=== PATIENT | female | born 1950 | race Caucasian/White ===

== ENCOUNTER 2018-02-22 21:17 | Emergency (ER) | payer MEDICARE, OTHER ==
[2018-02-22] MEDS ORDERED: Alum Hydrox/Mag Hydrox/Simeth 15 ML, Lidocaine 2% 15 ML PO ONE ×2 (22:00)
--- NOTE | 2018-02-22 22:03 | EDM.PDOC ---
ED HPI GENERAL MEDICAL PROBLEM - General Chief Complaint: General Stated Complaint: ABD PAIN Time Seen by Provider: 02/22/18 21:45 Source of Information: Reports: Patient History Limitations: Reports: No Limitations - History of Present Illness INITIAL COMMENTS - FREE TEXT/NARRATIVE: 68-year-old female has developed abdominal pain for the past 2 days. It's mostly epigastric, some radiation of pain into her back and shoulders bilaterally. Denies nausea or vomiting, but it's always worse after she tries to eat something. She was in with similar symptoms a year ago and was told she was "constipated". Denies diarrhea. No shortness of breath or chest pain. She has not tried any antacids or any other remedy. Onset: Gradual (Over the past 2 days) Location: Reports: Abdomen Severity: Moderate Associated Symptoms: Reports: Other (Decreased appetite). Denies: Cough, Fever/ Chills, Nausea/Vomiting, Shortness of Breath, Weakness Epigastric Pain Score (Numeric/FACES): 10 Bilateral Shoulder Pain Score (Numeric/FACES): 10 - Related Data Allergies Allergy/AdvReac Type Severity Reaction Status Date / Time codeine AdvReac Hallucinati Verified 12/04/16 16:17 ons Home Meds: Home Meds ALPRAZolam [Alprazolam] 0.5 mg PO BID 11/24/15 [History] Citalopram Hydrobromide [Celexa] 40 mg PO BEDTIME 11/24/15 [History] Diltiazem HCl [Cartia Xt] 240 mg PO DAILY 11/24/15 [History] Furosemide 40 mg PO ASDIRECTED 11/24/15 [History] Metolazone [Zaroxolyn] 5 mg PO ASDIRECTED 11/24/15 [History] Potassium Chloride [Klor-Con M20] 20 meq PO BID 11/24/15 [History] Pravastatin [Pravachol] 20 mg PO DAILY 11/24/15 [History] Warfarin Sodium 5 mg PO ASDIRECTED 11/24/15 [History] Polyethylene Glycol 3350 [MiraLAX] 17 gm PO DAILY #1 cont 03/25/16 [Rx] Fish Oil/[place]-3 Fatty Acids [Fish Oil 1,000 MG] 1 cap PO BID 10/17/16 [History] Doxycycline Monohydrate 100 mg PO BID 12/03/16 [History] Ondansetron [Zofran ODT] 4 mg PO Q6H PRN #5 tab.dis 12/03/16 [Rx] Past Medical History HEENT History: Reports: Impaired Vision Cardiovascular History: Reports: Afib, High Cholesterol Respiratory History: Reports: Asthma, Sleep Apnea 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: Musculoskeletal History: Reports: Fracture Neurological History: Reports: Migraines Psychiatric History: Reports: Anxiety, Depression Endocrine/Metabolic History: Reports: Obesity/BMI 30+ - Infectious Disease History Infectious Disease History: Reports: Chicken Pox, Measles, Mumps - Past Surgical History Musculoskeletal Surgical History: Reports: Knee Replacement, Shoulder Surgery, Other (See Below) Social & Family History - Family History Family Medical History: Unobtainable Cardiac: Reports: Heart Failure Respiratory: Reports: Asthma Endocrine/Metabolic: Reports: Diabetes, type II - Tobacco Use Smoking Status *Q: Never Smoker Second Hand Smoke Exposure: No - Caffeine Use Caffeine Use: Reports: Coffee - Recreational Drug Use Recreational Drug Use: No - Living Situation & Occupation Living situation: Reports: Single, with Family ED ROS GENERAL - Review of Systems Review Of Systems: See Below Constitutional: Denies: Fever, Chills HEENT: Reports: No Symptoms Respiratory: Denies: Shortness of Breath, Pleuritic Chest Pain Cardiovascular: Denies: Chest Pain GI/Abdominal: Reports: Abdominal Pain. Denies: Diarrhea, Nausea, Vomiting : Reports: No Symptoms Skin: Reports: No Symptoms Neurological: Reports: No Symptoms Psychiatric: Reports: No Symptoms ED EXAM, GENERAL - Physical Exam Exam: See Below (Appears uncomfortable but not distressed) Exam Limited By: No Limitations General Appearance: Alert, No Apparent Distress Eye Exam: Bilateral Eye: EOMI (No jaundice) Head: Atraumatic Respiratory/Chest: No Respiratory Distress, Lungs Clear Cardiovascular: Regular Rate, Rhythm GI/Abdominal: Soft, Tender (Very tender to palpation in the epigastric area, also pain in the right upper quadrant but no guarding) Neurological: Alert, Oriented Psychiatric: Normal Affect, Normal Mood Skin Exam: Warm, Dry Course - Vital Signs Last Recorded V/S: Last Vital Signs Temp 96.8 F 02/22/18 21:31 Pulse 108 H 02/23/18 00:17 Resp 20 02/23/18 00:17 BP 95/27 L 02/23/18 00:17 Pulse Ox 94 L 02/23/18 00:17 - Orders/Labs/Meds Orders: Active Orders 24 hr Category Date Time Status Abdomen Pelvis w Cont [CT] Stat Exams 02/22/18 22:57 Taken Labs: Laboratory Tests 02/22/18 02/22/18 Range/Units 22:00 22:00 WBC 8.9 (4.5-11.0) K/uL RBC 4.50 (3.30-5.50) M/uL Hgb 13.6 (12.0-15.0) g/dL Hct 40.0 (36.0-48.0) % MCV 89 (80-98) fL MCH 30 (27-31) pg MCHC 34 (32-36) % Plt Count 228 (150-400) K/uL Neut % (Auto) 75 H (36-66) % Lymph % (Auto) 15 L (24-44) % [place] % (Auto) 9 H (2-6) % Eos % (Auto) 1 L (2-4) % Baso % (Auto) 0 (0-1) % Sodium 134 L (140-148) mmol/L Potassium 2.8 L* (3.6-5.2) mmol/L Chloride 94 L (100-108) mmol/L Carbon Dioxide 35 H (21-32) mmol/L Anion Gap 7.8 (5.0-14.0) mmol/L BUN 10 (7-18) mg/dL Creatinine 0.9 (0.6-1.0) mg/dL Est Cr Clr Drug Dosing 54.45 mL/min Estimated GFR (MDRD) > 60 (>60) Glucose 106 (74-106) mg/dL Calcium 8.9 (8.5-10.1) mg/dL Total Bilirubin 0.6 (0.2-1.0) mg/dL AST 21 (15-37) U/L ALT 15 (12-78) U/L Alkaline Phosphatase 68 (46-116) U/L Total Protein 7.1 (6.4-8.2) g/dL Albumin 3.2 L (3.4-5.0) g/dL Globulin 3.9 H (2.3-3.5) g/dL Albumin/Globulin Ratio 0.8 L (1.2-2.2) Amylase 39 (25-115) U/L Lipase 273 (73-393) U/L Meds: Medications Discontinued Medications Generic Name Dose Route Start Last Admin Trade Name Evelyn PRN Reason Stop Dose Admin Al Hydroxide/Mg Hydroxide 15 0 ml 02/22/18 22:00 02/22/18 22:05 ml/ Lidocaine HCl 15 ml PO 02/22/18 22:01 30 ml ONETIME ONE Administration Fentanyl 25 mcg 02/23/18 00:04 02/23/18 00:16 Sublimaze IVPUSH 02/23/18 00:05 25 mcg ONETIME ONE Administration Sodium Chloride 85 mls @ 3.5 mls/sec 02/22/18 23:08 02/22/18 23:25 Normal Saline IV 02/22/18 23:09 3.5 mls/sec ONETIME ONE Administration Lactated Ringer's 1,000 mls @ 500 mls/hr 02/23/18 00:45 Ringers, Lactated IV ASDIRECTED BEBE Iopamidol 150 ml 02/22/18 23:15 02/22/18 23:24 Isovue-300 (61%) IV 150 ml . DIRECTED BEBE Administration Sodium Chloride 10 ml 02/22/18 23:08 02/22/18 23:24 Saline Flush FLUSH 02/22/18 23:09 10 ml ONETIME ONE Administration - Re-Assessments/Exams Free Text/Narrative Re-Assessment/Exam: 02/23/18 00:06 GI cocktail was given with no relief. CBC, CMP, amylase and lipase were obtained and an IV started. Potassium is only 2.8, but white count was normal and all liver enzymes are normal as well. Amylase and lipase were normal. Patient's pain was very persistent however so an IV enhanced contrast of the abdomen was obtained. She was given 25 g of fentanyl IV for pain. 02/23/18 00:39 CT showed findings of pancreatitis. Patient was started on 500 mL an hour of lactated Ringer's, and arrangements were made for the patient to be transferred to [place] for admission since we had no beds available. Departure - Departure Time of Disposition: 01:18 Disposition: DC/Tfer to Other Condition: Fair Clinical Impression: Hypokalemia Pancreatitis Qualifiers: Chronicity: acute Pancreatitis type: unspecified pancreatitis type Acute pancreatitis complication: unspecified Qualified Code(s): K85.90 - Acute pancreatitis without necrosis or infection, unspecified Abdominal pain Qualifiers: Abdominal location: upper abdomen, unspecified Qualified Code(s): R10.10 - Upper abdominal pain, unspecified - Discharge Information Referrals: Gary Phipps MD [Primary Care Provider] - Forms: ED Department Discharge Care Plan Goals: 68-year-old female who be transferred to [place] by EMS for inpatient admission to treat and evaluate acute pancreatitis. - My Orders Last 24 Hours: My Active Orders 02/22/18 22:57 Abdomen Pelvis w Cont [CT] Stat - Assessment/Plan Last 24 Hours: My Active Orders 02/22/18 22:57 Abdomen Pelvis w Cont [CT] Stat
[2018-02-22] MEDS ORDERED: Sodium Chloride 0.9% 10 ML Syringe FLUSH ONE (23:08)
[2018-02-22] MEDS ORDERED: Iopamidol 612 MG/ML 150 ML Bottle IV SCH (23:15)
[2018-02-23] MEDS ORDERED: fentaNYL 100 MCG/2 ML SDV IVPUSH ONE (00:04)
[2018-02-23 00:18] VITALS: BP 95/27
[2018-02-23] MEDS ORDERED: Lactated Ringers 1,000 ML IV SCH (00:45)
== END 2018-02-23 01:18 | disposition other institution (70) ==
LOC: JP.ED 21:17
DX: K85.90 Acute pancreatitis without necrosis or infection, unspecified (principal); E87.6 Hypokalemia; E78.00 Pure hypercholesterolemia, unspecified; Z88.5 Allergy status to narcotic agent; Z79.899 Other long term (current) drug therapy
CPT/HCPCS: 36415; 74177; 80053; 82150; 83690; 85025; 96374; 99285; A9270; J3010; J7030; J7050

== ENCOUNTER 2018-02-27 17:24 | Emergency (ER) | payer MEDICARE, OTHER ==
[2018-02-27] MEDS ORDERED: diphenhydrAMINE 25 MG Cap PO ONE (18:28)
--- NOTE | 2018-02-27 18:38 | EDM.PDOC ---
ED HPI GENERAL MEDICAL PROBLEM - General Chief Complaint: Allergic Reaction Stated Complaint: ALLERGIC REACTION Time Seen by Provider: 02/27/18 18:07 Source of Information: Reports: Patient, RN Notes Reviewed History Limitations: Reports: No Limitations - History of Present Illness INITIAL COMMENTS - FREE TEXT/NARRATIVE: 68-year-old female presents emergency department day complaint of allergic reaction, she recently had pancreatitis was hospitalized in [facility]. I was started on antibiotic of Levaquin, she states she had these symptoms while in the hospital was just discharged 2 days prior and is expected to continue the antibiotic for 2 more days. Her symptoms consist of a dry mouth with a scratchy throat, upset stomach, feels confused or like she is in fog, no throat swelling or difficulty breathing no rash also has had problems with her anticoagulation therapy for atrial fibrillation while in the hospital her INR was 10 checked today in the clinic INR is still at 6 reports no bleeding at this time, - Related Data Allergies Allergy/AdvReac Type Severity Reaction Status Date / Time codeine AdvReac Hallucinati Verified 12/04/16 16:17 ons Home Meds: Home Meds ALPRAZolam [Alprazolam] 0.5 mg PO BID 11/24/15 [History] Citalopram Hydrobromide [Celexa] 40 mg PO BEDTIME 11/24/15 [History] Diltiazem HCl [Cartia Xt] 120 mg PO DAILY 11/24/15 [History] Potassium Chloride [Klor-Con M20] 20 meq PO BID 11/24/15 [History] Pravastatin [Pravachol] 20 mg PO DAILY 11/24/15 [History] Warfarin Sodium 5 mg PO ASDIRECTED 11/24/15 [History] Polyethylene Glycol 3350 [MiraLAX] 17 gm PO DAILY #1 cont 03/25/16 [Rx] Fish Oil/[place]-3 Fatty Acids [Fish Oil 1,000 MG] 1 cap PO BID 10/17/16 [History] Ondansetron [Zofran ODT] 4 mg PO Q6H PRN #5 tab.dis 12/03/16 [Rx] Levofloxacin 250 mg PO DAILY 02/27/18 [History] Past Medical History HEENT History: Reports: Impaired Vision Cardiovascular History: Reports: Afib, High Cholesterol Respiratory History: Reports: Asthma, Sleep Apnea Gastrointestinal History: Reports: Pancreatitis 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: Musculoskeletal History: Reports: Fracture Neurological History: Reports: Migraines Psychiatric History: Reports: Anxiety, Depression Endocrine/Metabolic History: Reports: Obesity/BMI 30+ - Infectious Disease History Infectious Disease History: Reports: Chicken Pox, Measles, Mumps - Past Surgical History Musculoskeletal Surgical History: Reports: Knee Replacement, Shoulder Surgery, Other (See Below) Social & Family History - Family History Family Medical History: Unobtainable Cardiac: Reports: Heart Failure Respiratory: Reports: Asthma Endocrine/Metabolic: Reports: Diabetes, type II - Tobacco Use Smoking Status *Q: Never Smoker Second Hand Smoke Exposure: No - Caffeine Use Caffeine Use: Reports: None - Recreational Drug Use Recreational Drug Use: No - Living Situation & Occupation Living situation: Reports: Single, with Family ED ROS ALLERGIC REACTION - Review of Systems Review Of Systems: See Below Constitutional: Reports: No Symptoms HEENT: Reports: Other (Dry throat) Respiratory: Reports: No Symptoms Cardiovascular: Reports: No Symptoms GI/Abdominal: Reports: Other Neurological: Reports: Other (Feels like she is in a fog) ED EXAM GENERAL NO PERIP PULSE - Physical Exam Exam: See Below Text/Narrative:: General: Female, not in any distress, alert and oriented x3 HEENT: head is atraumatic normocephalic, eyes pupils equal round reactive to light, sclera clear no conjunctivitis appreciated. Ears tympanic membranes clear and amador landmarks and light reflex are present bilaterally canals are clear. Nose no septal deviation, nares are clear, no blood present. Mouth mucosa is moist and pink no erythema or exudate noted in soft palate, tongue is midline uvula is midline, dentition is intact. Neck: Supple no thyromegaly no tracheal deviation. Nodes: Cervical nodes subclavicular nodes nontender no palpable lymphadenopathy noted. Lungs: clear to auscultation bilaterally with symmetrical respirations, no adventitious noise appreciated. CV: Irregularly irregular rate and rhythm S1 and S2 appreciated no murmurs rubs or gallops noted. Abdomen: Soft, nontender, no palpable masses or organomegaly appreciated, no distention no guarding bowel sounds are present, . Neuro: Cranial nerves II through XII grossly intact Skin: Warm and dry, intact Extremities: +1 pitting edema appreciated bilaterally Course - Vital Signs Last Recorded V/S: Last Vital Signs Temp 97.4 F 02/27/18 19:15 Pulse 58 L 05/01/18 19:15 Resp 14 02/27/18 19:15 BP 144/92 H 02/27/18 19:15 Pulse Ox 95 02/27/18 19:15 - Orders/Labs/Meds Meds: Medications Discontinued Medications Generic Name Dose Route Start Last Admin Trade Name Evelyn PRN Reason Stop Dose Admin Diphenhydramine HCl 25 mg 02/27/18 18:28 02/27/18 18:36 Benadryl PO 02/27/18 18:29 25 mg ONETIME ONE Administration Departure - Departure Time of Disposition: :18 Disposition: Home, Self-Care 01 Condition: Good Clinical Impression: Drug reaction Qualifiers: Encounter type: initial encounter Qualified Code(s): T88.7XXA - Unspecified adverse effect of drug or medicament, initial encounter - Discharge Information Referrals: Gary Phipps MD [Primary Care Provider] - Forms: ED Department Discharge Additional Instructions: Please keep your follow-up appointment with your primary care physician tomorrow , use Benadryl 25 mg every 6-8 hours as needed for symptomatic relief - Assessment/Plan Plan: Assessment Acuity = acute Site and laterality = possible drug reaction Etiology = question levofloxacin Manifestations = none Location of injury = Home Lab values = none Plan She had good improvement with 25 mg Benadryl provided, last her to stop her Levaquin, she will follow-up with her primary care provider tomorrow This note was dictated using Marco Vasco voice recognition software please call with any questions on syntax or [email or web address].
[2018-02-27 19:16] VITALS: BP 144/92
== END 2018-02-27 19:27 | disposition home or self-care (01) ==
LOC: JP.ED 17:24
DX: R68.2 Dry mouth, unspecified (principal); T50.905A Adverse effect of unspecified drugs, medicaments and biological substances, initial encounter; I48.91 Unspecified atrial fibrillation; Z79.01 Long term (current) use of anticoagulants; E78.00 Pure hypercholesterolemia, unspecified; Z79.899 Other long term (current) drug therapy
CPT/HCPCS: 99283; A9270

== ENCOUNTER 2019-01-15 10:42 | Inpatient (IN) | payer MEDICARE, OTHER ==
--- NOTE | 2019-01-15 10:53 | EDM.PDOC ---
ED HPI GENERAL MEDICAL PROBLEM - General Chief Complaint: Lower Extremity Injury/Pain Stated Complaint: MEDICAL [facility]IA [facility] Time Seen by Provider: 01/15/19 10:45 Source of Information: Reports: Patient, EMS History Limitations: Reports: No Limitations - History of Present Illness INITIAL COMMENTS - FREE TEXT/NARRATIVE: 69-year-old female slipped on the ice injuring her right ankle. No other injury. She was unable to get up and bear weight and has significant ankle pain so EMS was called. She received IV fentanyl in route and has an obvious deformity of the right ankle. She can move her toes and feel her toes. Onset: Sudden Duration: Hour(s): (Within the last hour) Location: Reports: Lower Extremity, Right Associated Symptoms: Reports: No Other Symptoms Right Ankle Pain Score (Numeric/FACES): 7 - Related Data Allergies Allergy/AdvReac Type Severity Reaction Status Date / Time codeine AdvReac Hallucinati Verified 12/04/16 16:17 ons Home Meds: Home Meds ALPRAZolam [Alprazolam] 0.5 mg PO BID 11/24/15 [History] Citalopram Hydrobromide [Celexa] 40 mg PO BEDTIME 11/24/15 [History] Diltiazem HCl [Cartia Xt] 240 mg PO DAILY 11/24/15 [History] Potassium Chloride [Klor-Con M20] 20 meq PO BID 11/24/15 [History] Pravastatin [Pravachol] 20 mg PO DAILY 11/24/15 [History] Warfarin Sodium 5 mg PO ASDIRECTED 11/24/15 [History] Polyethylene Glycol 3350 [MiraLAX] 17 gm PO DAILY #1 cont 03/25/16 [Rx] Fish Oil/[place]-3 Fatty Acids [Fish Oil 1,000 MG] 1 cap PO BID 10/17/16 [History] Ondansetron [Zofran ODT] 4 mg PO Q6H PRN #5 tab.dis 12/03/16 [Rx] Albuterol Sulfate [Proair Hfa] 2 puff INH Q6H PRN 01/15/19 [History] Cholecalciferol (Vitamin D3) [Vitamin D3] 1,000 unit PO DAILY 01/15/19 [History] Melatonin 10 mg PO BEDTIME 01/15/19 [History] Torsemide 20 mg PO ASDIRECTED 01/15/19 [History] Past Medical History HEENT History: Reports: Impaired Vision Cardiovascular History: Reports: Afib, High Cholesterol Respiratory History: Reports: Asthma, Sleep Apnea Gastrointestinal History: Reports: Pancreatitis 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: Musculoskeletal History: Reports: Fracture Neurological History: Reports: Migraines Psychiatric History: Reports: Anxiety, Depression Endocrine/Metabolic History: Reports: Obesity/BMI 30+ - Infectious Disease History Infectious Disease History: Reports: Chicken Pox, Measles, Mumps - Past Surgical History Musculoskeletal Surgical History: Reports: Knee Replacement, Shoulder Surgery, Other (See Below) Social & Family History - Family History Family Medical History: Unobtainable Cardiac: Reports: Heart Failure Respiratory: Reports: Asthma Endocrine/Metabolic: Reports: Diabetes, type II - Tobacco Use Smoking Status *Q: Never Smoker - Caffeine Use Caffeine Use: Reports: Coffee - Living Situation & Occupation Living situation: Reports: Single, with Family Review of Systems - Review of Systems Review Of Systems: See Below Constitutional: Denies: Fever Respiratory: Reports: No Symptoms Cardiovascular: Reports: No Symptoms GI/Abdominal: Reports: No Symptoms Skin: Reports: Bruising, Other (Some bruising over the medial malleolus, and tenting of the skin) Neurological: Denies: Paresthesia Psychiatric: Reports: No Symptoms ED EXAM, GENERAL - Physical Exam Exam: See Below Exam Limited By: No Limitations General Appearance: Alert, Mild Distress (Fairly uncomfortable) Neck: Supple Respiratory/Chest: No Respiratory Distress Extremities: Other (Ankle reveals obvious deformity with tenting of the medial malleolus and apparent lateral dislocation of the talus.) Course - Vital Signs Last Recorded V/S: Last Vital Signs Temp 97.5 F 01/15/19 14:58 Pulse 73 01/15/19 14:58 Resp 18 01/15/19 14:58 BP 122/67 01/15/19 14:58 Pulse Ox 95 01/15/19 16:37 - Orders/Labs/Meds Orders: Medication Orders Acetaminophen (Tylenol) 650 mg PO Q4H PRN PRN Reason: Pain (Mild 1-3)/fever Last Admin: 01/15/19 14:46 Dose: 650 mg Albuterol (Ventolin Hfa) 0 gm INH Q6H PRN PRN Reason: Shortness of Breath Albuterol/Ipratropium (Duoneb 3.0-0.5 Mg/3 Ml) 3 ml NEB QID PRN PRN Reason: Shortness Of Breath/wheezing Alprazolam (Xanax) 0.5 mg PO TID [facility] Last Admin: 01/15/19 17:18 Dose: 0.5 mg Citalopram Hydrobromide (Celexa) 40 mg PO BEDTIME BEBE Diltiazem HCl (Cardizem Cd) 240 mg PO DAILY [facility] Sodium Chloride (Normal Saline) 1,000 mls @ 125 mls/hr IV ASDIRECTED BEBE Last Admin: 01/15/19 14:47 Dose: 125 mls/hr Melatonin (Melatonin) 9 mg PO BEDTIME BEBE Ondansetron HCl (Zofran) 4 mg IV Q4H PRN PRN Reason: Nausea/Vomiting Oxycodone HCl (Oxycodone) 5 mg PO Q4H PRN PRN Reason: Pain (moderate 4-6) Last Admin: 01/15/19 14:46 Dose: 5 mg Polyethylene Glycol (Miralax) 17 gm PO DAILY [facility] Potassium Chloride (Klor-Con M20) 20 meq PO BID [facility] Pravastatin Sodium (Pravachol) 20 mg PO DAILY [facility] Senna/Docusate Sodium (Senna Plus) 1 tab PO BID PRN PRN Reason: Constipation Sodium Chloride (Saline Flush) 10 ml FLUSH ASDIRECTED PRN PRN Reason: Keep Vein Open Labs: Laboratory Tests 01/15/19 01/15/19 01/15/19 Range/Units 11:35 11:35 12:00 WBC 4.9 (4.5-11.0) K/uL RBC 4.12 (3.30-5.50) M/uL Hgb 12.3 (12.0-15.0) g/dL Hct 38.6 (36.0-48.0) % MCV 94 (80-98) fL MCH 30 (27-31) pg MCHC 32 (32-36) % Plt Count 206 (150-400) K/uL Neut % (Auto) 72 H (36-66) % Lymph % (Auto) 15 L (24-44) % [place] % (Auto) 9 H (2-6) % Eos % (Auto) 3 (2-4) % Baso % (Auto) 1 (0-1) % PT 25.2 H (9.5-12.0) sec INR 2.41 H D (0.80-1.20) Sodium 142 (140-148) mmol/L Potassium 4.2 (3.6-5.2) mmol/L Chloride 104 (100-108) mmol/L Carbon Dioxide 32 (21-32) mmol/L Anion Gap 6.0 (5.0-14.0) mmol/L BUN 18 D (7-18) mg/dL Creatinine 0.9 (0.6-1.0) mg/dL Est Cr Clr Drug Dosing 53.67 mL/min Estimated GFR (MDRD) > 60 (>60) Glucose 101 (74-106) mg/dL Calcium 8.8 (8.5-10.1) mg/dL Meds: Medications Generic Name Dose Route Start Last Admin Trade Name Freq PRN Reason Stop Dose Admin Acetaminophen 650 mg 01/15/19 13:51 01/15/19 14:46 Tylenol PO 650 mg Q4H PRN Administration Pain (Mild 1-3)/fever Albuterol 0 gm 01/15/19 13:51 Ventolin Hfa INH Q6H PRN Shortness of Breath Albuterol/Ipratropium 3 ml 01/15/19 13:51 Duoneb 3.0-0.5 Mg/3 Ml NEB QID PRN Shortness Of Breath/wheezing Alprazolam 0.5 mg 01/15/19 17:00 01/15/19 17:18 Xanax PO 0.5 mg TID BEBE Administration Citalopram Hydrobromide 40 mg 01/15/19 21:00 Celexa PO BEDTIME BEBE Diltiazem HCl 240 mg 01/16/19 09:00 Cardizem Cd PO DAILY BEBE Sodium Chloride 1,000 mls @ 125 mls/hr 01/15/19 13:51 01/15/19 14:47 Normal Saline IV 125 mls/hr ASDIRECTED BEBE Administration Melatonin 9 mg 01/15/19 21:00 Melatonin PO BEDTIME BEBE Ondansetron HCl 4 mg 01/15/19 13:51 Zofran IV Q4H PRN Nausea/Vomiting Oxycodone HCl 5 mg 01/15/19 13:51 01/15/19 14:46 Oxycodone PO 5 mg Q4H PRN Administration Pain (moderate 4-6) Polyethylene Glycol 17 gm 01/16/19 09:00 Miralax PO DAILY [facility] Potassium Chloride 20 meq 01/15/19 21:00 Klor-Con M20 PO BID [facility] Pravastatin Sodium 20 mg 01/16/19 09:00 Pravachol PO DAILY [facility] Senna/Docusate Sodium 1 tab 01/15/19 13:51 Senna Plus PO BID PRN Constipation Sodium Chloride 10 ml 01/15/19 13:51 Saline Flush FLUSH ASDIRECTED PRN Keep Vein Open Discontinued Medications Generic Name Dose Route Start Last Admin Trade Name Freq PRN Reason Stop Dose Admin Alprazolam 0.5 mg 01/15/19 21:00 Xanax PO BID [facility] Fentanyl 50 mcg 01/15/19 11:43 01/15/19 11:46 Sublimaze IVPUSH 01/15/19 11:44 50 mcg ONETIME ONE Administration Fentanyl 25 mcg 01/15/19 13:09 01/15/19 13:14 Sublimaze IVPUSH 01/15/19 13:10 25 mcg ONETIME ONE Administration Phytonadione 5 mg/ Sodium 50.5 mls @ 100 mls/hr 01/15/19 12:19 01/15/19 12:43 Chloride IV 01/15/19 12:49 100 mls/hr NOW ONE Administration Propofol 100 mg 01/15/19 11:03 01/15/19 11:34 Diprivan 20 Ml IVPUSH 01/15/19 11:04 80 mg ONETIME ONE Administration - Re-Assessments/Exams Free Text/Narrative Re-Assessment/Exam: 01/15/19 10:52 An ankle x-ray was obtained urgently. 01/15/19 11:21 Ankle confirmed bilateral malleoli fracture with posterior and lateral dislocation of the talus. Dr. Guillermo West came up from orthopedics, and assisted with propofol inducted manual reduction. She was placed in a 14 inch Ortho-Glass posterior short leg splint. 01/15/19 11:48 INR, CBC and BMP were obtained and patient will be admitted to prepare for surgery. Departure - Departure Time of Disposition: 13:55 Disposition: Admitted As Inpatient 64 Condition: Fair Clinical Impression: Fracture dislocation of right ankle joint Qualifiers: Encounter type: initial encounter Fracture type: closed Qualified Code(s): S82.890K - Other fracture of right lower leg, initial encounter for closed fracture - Discharge Information
[2019-01-15] MEDS ORDERED: Propofol 200 MG/20 ML SDV IVPUSH ONE (11:03)
--- NOTE | 2019-01-15 11:41 | CRLCR ---
INDICATION: Injury. TECHNIQUE: Three views of the right ankle. COMPARISON: None. IMPRESSION: Acute trimalleolar fracture with lateral and posterior dislocation of the tibiotalar joint. Dictated by Jordy Darling MD @ 01/15/2019 11:38:52 AM Dictated by: Jordy Darling MD @ 01/15/2019 11:39:34 (Electronically Signed)
[2019-01-15] MEDS ORDERED: fentaNYL 100 MCG/2 ML SDV IVPUSH ONE ×3 (11:43→13:09)
--- NOTE | 2019-01-15 11:48 | CRLCR ---
INDICATION: Postreduction. TECHNIQUE: Two views. COMPARISON: Earlier today. IMPRESSION: Redemonstration of an acute trimalleolar fracture with reduction of the previously noted tibiotalar dislocation. Dictated by Jordy Darling MD @ 01/15/2019 11:47:33 AM Dictated by: Jordy Darling MD @ 01/15/2019 11:47:39 (Electronically Signed)
[2019-01-15] MEDS ORDERED: Phytonadione 5 MG in Sodium Chloride 0.9% 50 ML IV ONE (12:19)
--- NOTE | 2019-01-15 12:53 | PCM.HP ---
H&P History of Present Illness - General Date of Service: 01/15/19 Admit Problem/Dx: Admission Diagnosis/Problem Admission Diagnosis/Problem Fracture dislocation of ankle Source of Information: Patient, Family, Provider, RN Notes Reviewed History Limitations: Reports: No Limitations - History of Present Illness Initial Comments - Free Text/Narative: Ms. Mendiola is a 69-year-old woman admitted through the emergency department for further evaluation and management of a right ankle fracture/dislocation. She was doing well until this morning when she fell on the ice and noted immediate pain in her right ankle. She was brought into the emergency department , x-ray showed fracture and dislocation of the right ankle. She was seen and evaluated in the emergency department by Dr. West and the dislocation was reduced. Other than obesity she is been fairly healthy but does have underlying atrial fibrillation and is on long-term oral anticoagulation with warfarin, INR today was 2.4. Other than the atrial fibrillation has no history of significant cardiac disease or pulmonary disease. She has had some difficulty with fluid overload requiring daily use of diuretic therapy. She has had previous surgery with general anesthetic and denies any history of adverse effect or family history of adverse reaction to general anesthetic. She denies any history of deep vein thrombosis, pulmonary embolism, or significant bleeding abnormality. Right Ankle Pain Score (Numeric/FACES): 7 - Related Data Allergies/Adverse Reactions: Allergies Allergy/AdvReac Type Severity Reaction Status Date / Time codeine AdvReac Hallucinati Verified 12/04/16 16:17 ons Home Medications: Home Meds ALPRAZolam [Alprazolam] 0.5 mg PO BID 11/24/15 [History] Citalopram Hydrobromide [Celexa] 40 mg PO BEDTIME 11/24/15 [History] Diltiazem HCl [Cartia Xt] 240 mg PO DAILY 11/24/15 [History] Potassium Chloride [Klor-Con M20] 20 meq PO BID 11/24/15 [History] Pravastatin [Pravachol] 20 mg PO DAILY 11/24/15 [History] Warfarin Sodium 5 mg PO ASDIRECTED 11/24/15 [History] Polyethylene Glycol 3350 [MiraLAX] 17 gm PO DAILY #1 cont 03/25/16 [Rx] Fish Oil/[place]-3 Fatty Acids [Fish Oil 1,000 MG] 1 cap PO BID 10/17/16 [History] Ondansetron [Zofran ODT] 4 mg PO Q6H PRN #5 tab.dis 12/03/16 [Rx] Albuterol Sulfate [Proair Hfa] 2 puff INH Q6H PRN 01/15/19 [History] Cholecalciferol (Vitamin D3) [Vitamin D3] 1,000 unit PO DAILY 01/15/19 [History] Diltiazem HCl [Cartia Xt] 240 mg PO DAILY 01/15/19 [History] Melatonin 10 mg PO BEDTIME 01/15/19 [History] Torsemide 20 mg PO ASDIRECTED 01/15/19 [History] Past Medical History HEENT History: Reports: Impaired Vision Cardiovascular History: Reports: Afib, High Cholesterol Respiratory History: Reports: Asthma, Sleep Apnea Gastrointestinal History: Reports: Pancreatitis 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: Musculoskeletal History: Reports: Fracture Neurological History: Reports: Migraines Psychiatric History: Reports: Anxiety, Depression Endocrine/Metabolic History: Reports: Obesity/BMI 30+ - Infectious Disease History Infectious Disease History: Reports: Chicken Pox, Measles, Mumps - Past Surgical History Musculoskeletal Surgical History: Reports: Knee Replacement, Shoulder Surgery, Other (See Below) Social & Family History - Family History Family Medical History: Unobtainable Cardiac: Reports: Heart Failure Respiratory: Reports: Asthma Endocrine/Metabolic: Reports: Diabetes, type II - Tobacco Use Smoking Status *Q: Never Smoker - Caffeine Use Caffeine Use: Reports: Coffee - Living Situation & Occupation Living situation: Reports: Single, with Family H&P Review of Systems - Review of Systems: Review Of Systems: See Below General: Reports: No Symptoms HEENT: Reports: No Symptoms Pulmonary: Reports: No Symptoms Cardiovascular: Reports: No Symptoms Gastrointestinal: Reports: No Symptoms Genitourinary: Reports: No Symptoms Musculoskeletal: Reports: No Symptoms Skin: Reports: No Symptoms Psychiatric: Reports: No Symptoms Neurological: Reports: No Symptoms Hematologic/Lymphatic: Reports: No Symptoms Immunologic: Reports: No Symptoms Exam - Exam Exam: See Below - Vital Signs Vital Signs: Last Vital Signs Temp 97.1 F 01/15/19 11:34 Pulse 80 01/15/19 11:34 Resp 18 01/15/19 11:34 BP 116/57 L 01/15/19 11:34 Pulse Ox 94 L 01/15/19 11:34 Weight: 280 lb - Exam Quality Assessment: Supplemental Oxygen, DVT Prophylaxis General: Alert, Oriented, Cooperative, Mild Distress HEENT: Conjunctiva Clear, Hearing Intact, Mucosa Moist & [place], Normal Nasal Septum, Posterior Pharynx Clear, Pupils Equal Neck: Supple, Trachea Midline, +2 Carotid Pulse wo Bruit Lungs: Clear to Auscultation, Normal Respiratory Effort Cardiovascular: Regular Rate, Normal S1, Normal S2, Irregular Rhythm. No: Systolic Murmur, Diastolic Murmur GI/Abdominal Exam: Soft, Non-Tender, No Organomegaly, No Distention Back Exam: Normal Inspection, Full Range of Motion Extremities: No Pedal Edema, Other (Right ankle is splinted and wrapped) Skin: Warm, Dry, Intact Neurological: Cranial Nerves Intact, Strength Equal Bilateral, Normal Speech, Normal Tone, Sensation Intact. No: Focal Deficit Neuro Extensive - Mental Status: Alert, Oriented x3, Normal Mood/Affect, Normal Cognition, Memory Intact - Patient Data Lab Results Last 24 hrs: Laboratory Results - last 24 hr 01/15/19 01/15/19 01/15/19 Range/Units 11:35 11:35 12:00 WBC 4.9 (4.5-11.0) K/uL RBC 4.12 (3.30-5.50) M/uL Hgb 12.3 (12.0-15.0) g/dL Hct 38.6 (36.0-48.0) % MCV 94 (80-98) fL MCH 30 (27-31) pg MCHC 32 (32-36) % Plt Count 206 (150-400) K/uL Neut % (Auto) 72 H (36-66) % Lymph % (Auto) 15 L (24-44) % [place] % (Auto) 9 H (2-6) % Eos % (Auto) 3 (2-4) % Baso % (Auto) 1 (0-1) % PT 25.2 H (9.5-12.0) sec INR 2.41 H D (0.80-1.20) Sodium 142 (140-148) mmol/L Potassium 4.2 (3.6-5.2) mmol/L Chloride 104 (100-108) mmol/L Carbon Dioxide 32 (21-32) mmol/L Anion Gap 6.0 (5.0-14.0) mmol/L BUN 18 D (7-18) mg/dL Creatinine 0.9 (0.6-1.0) mg/dL Est Cr Clr Drug Dosing 53.67 mL/min Estimated GFR (MDRD) > 60 (>60) Glucose 101 (74-106) mg/dL Calcium 8.8 (8.5-10.1) mg/dL Result Diagrams: 01/15/19 11:35 01/15/19 11:35 *Q Meaningful Use (ADM) - VTE *Q VTE Pharmacological Contraindications *Q: High INR Value - VTE Risk Assess *Q Each Risk Factor Represents 1 Point: Obesity ( BMI > 25 kg/m2) Total Score 1 Point Risk Factors: 1 Each Risk Factor Represents 2 Points: Age 60 - 74 Years Total Score 2 Point Risk Factors: 2 Each Risk Factor Represents 3 Points: None Total Score 3 Point Risk Factors: 0 Each Risk Factor Represents 5 Points: Hip, Pelvis or Leg Fracture, Less than 1 month Total Score 5 Point Risk Factors: 5 Venous Thromboembolism Risk Factor Score *Q: 8 Problem List Initiated/Reviewed/Updated: Yes Orders Last 24hrs: Active Orders 24 hr Category Date Time Status Patient Status Manage Transfer [TRANSFER] Routine ADT 01/15/19 12:10 Active Phytonadione [AquaMephyton] 5 mg Med 01/15/19 12:19 Active Sodium Chloride 0.9% [Normal Saline] 50 ml IV NOW Resuscitation Status Routine Resus Stat 01/15/19 12:12 Ordered Medication Orders Phytonadione 5 mg/ Sodium (Chloride) 50.5 mls @ 100 mls/hr IV NOW ONE Stop: 01/15/19 12:49 Last Admin: 01/15/19 12:43 Dose: 100 mls/hr Assessment/Plan Comment:: ASSESSMENT AND PLAN RIGHT ANKLE FRACTURE/DISLOCATION-occurred earlier this morning when she slipped and fell on the ice. Dislocation reduced by Dr. West in the emergency department. -Orthopedic follow-up per Dr. West -IV fluids for hydration -Nothing by mouth after midnight -Pain medication as needed -Reverse anticoagulation with IV vitamin K ATRIAL FIBRILLATION-on long-term oral anticoagulation with warfarin. Rate control currently adequate on oral diltiazem. -Continue diltiazem -Hold warfarin -Vitamin K 5 mg IV now -Reassess INR in a.m. HISTORY OF FLUID RETENTION-and daily diuretic therapy -Hold diuretic therapy until after surgery MAINTENANCE ISSUES -DVT prophylaxis; INR is currently therapeutic and should provide adequate DVT prophylaxis until reversed -GI prophylaxis; not indicated -Phillips catheter; not indicated -Nutrition; regular diet, nothing by mouth after midnight -Nicotine dependence; not required CODE STATUS-FULL CODE ADMISSION STATUS-patient will be admitted to inpatient status, expect at least a 2 night hospital stay for evaluation and management of problems as outlined above. At the time of this admission I do not reasonably expected evaluation and management of this problem will require more than a 96 hour hospital stay. DISPOSITION-anticipate discharge to home after the hospital stay. 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 Phipps
[2019-01-15] MEDS ORDERED: oxyCODONE 5 MG Tab PO PRN (13:51)
[2019-01-15] MEDS ORDERED: Albuterol/Ipratropium 3.0-0.5 MG/3 ML Neb Soln NEB PRN (13:51)
[2019-01-15] MEDS ORDERED: Albuterol 8 GM Inhaler INH PRN (13:51)
[2019-01-15] MEDS ORDERED: Sodium Chloride 0.9% 10 ML Syringe FLUSH PRN (13:51)
[2019-01-15] MEDS ORDERED: Ondansetron 4 MG/2 ML SDV IV PRN (13:51)
[2019-01-15] MEDS: Acetaminophen 325 MG Tab PO PRN ×2 (14:46→23:05)
[2019-01-15] MEDS: Sodium Chloride 0.9% 1,000 ML IV SCH ×2 (14:47→23:15)
[2019-01-15] MEDS: ALPRAZolam 0.5 MG Tab PO SCH ×2 (17:18→21:44)
--- NOTE | 2019-01-15 17:38 | PCM.CONS ---
H&P History of Present Illness - General Date of Service: 01/15/19 Admit Problem/Dx: Admission Diagnosis/Problem Admission Diagnosis/Problem Fracture dislocation of ankle Source of Information: Patient History Limitations: Reports: No Limitations - History of Present Illness Initial Comments - Free Text/Narative: &! year old with slip and fall resulting in right ankle dislocation with unstable trimalleolar fracture. Dislocation reduced in the ED and splint applied. Onset of Symptoms: Reports: Today, Sudden Severity: Severe Right Ankle Pain Score (Numeric/FACES): 6 - Related Data Allergies/Adverse Reactions: Allergies Allergy/AdvReac Type Severity Reaction Status Date / Time codeine AdvReac Hallucinati Verified 12/04/16 16:17 ons Home Medications: Home Meds ALPRAZolam [Alprazolam] 0.5 mg PO BID 11/24/15 [History] Citalopram Hydrobromide [Celexa] 40 mg PO BEDTIME 11/24/15 [History] Diltiazem HCl [Cartia Xt] 240 mg PO DAILY 11/24/15 [History] Potassium Chloride [Klor-Con M20] 20 meq PO BID 11/24/15 [History] Pravastatin [Pravachol] 20 mg PO DAILY 11/24/15 [History] Warfarin Sodium 5 mg PO ASDIRECTED 11/24/15 [History] Polyethylene Glycol 3350 [MiraLAX] 17 gm PO DAILY #1 cont 03/25/16 [Rx] Fish Oil/[place]-3 Fatty Acids [Fish Oil 1,000 MG] 1 cap PO BID 10/17/16 [History] Ondansetron [Zofran ODT] 4 mg PO Q6H PRN #5 tab.dis 12/03/16 [Rx] Albuterol Sulfate [Proair Hfa] 2 puff INH Q6H PRN 01/15/19 [History] Cholecalciferol (Vitamin D3) [Vitamin D3] 1,000 unit PO DAILY 01/15/19 [History] Melatonin 10 mg PO BEDTIME 01/15/19 [History] Torsemide 20 mg PO ASDIRECTED 01/15/19 [History] Past Medical History HEENT History: Reports: Impaired Vision Cardiovascular History: Reports: Afib, High Cholesterol Respiratory History: Reports: Asthma, Sleep Apnea Gastrointestinal History: Reports: Pancreatitis 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: Musculoskeletal History: Reports: Fracture Neurological History: Reports: Migraines Psychiatric History: Reports: Anxiety, Depression Endocrine/Metabolic History: Reports: Obesity/BMI 30+ - Infectious Disease History Infectious Disease History: Reports: Chicken Pox, Measles, Mumps - Past Surgical History Musculoskeletal Surgical History: Reports: Knee Replacement, Shoulder Surgery, Other (See Below) Social & Family History - Family History Family Medical History: Unobtainable Cardiac: Reports: Heart Failure Respiratory: Reports: Asthma Endocrine/Metabolic: Reports: Diabetes, type II - Tobacco Use Smoking Status *Q: Never Smoker Second Hand Smoke Exposure: No - Caffeine Use Caffeine Use: Reports: Coffee Other Caffeine Use: 1 cup per day - Alcohol Use Days Per Week of Alcohol Use: 0 - Recreational Drug Use Recreational Drug Use: No - Living Situation & Occupation Living situation: Reports: Single, with Family H&P Review of Systems - Review of Systems: Review Of Systems: ROS reveals no pertinent complaints other than HPI. Exam - Exam Exam: See Below - Vital Signs Vital Signs: Last Vital Signs Temp 36.4 C 01/15/19 14:58 Pulse 73 01/15/19 14:58 Resp 18 01/15/19 14:58 BP 122/67 01/15/19 14:58 Pulse Ox 95 01/15/19 16:37 Weight: 127.006 kg - Exam Physical Exam Comments:: Right ankle now in splint. Swelling moderate. Sensation in toes OK - Patient Data Lab Results Last 24 hrs: Laboratory Results - last 24 hr 01/15/19 01/15/19 01/15/19 Range/Units 11:35 11:35 12:00 WBC 4.9 (4.5-11.0) K/uL RBC 4.12 (3.30-5.50) M/uL Hgb 12.3 (12.0-15.0) g/dL Hct 38.6 (36.0-48.0) % MCV 94 (80-98) fL MCH 30 (27-31) pg MCHC 32 (32-36) % Plt Count 206 (150-400) K/uL Neut % (Auto) 72 H (36-66) % Lymph % (Auto) 15 L (24-44) % [place] % (Auto) 9 H (2-6) % Eos % (Auto) 3 (2-4) % Baso % (Auto) 1 (0-1) % PT 25.2 H (9.5-12.0) sec INR 2.41 H D (0.80-1.20) Sodium 142 (140-148) mmol/L Potassium 4.2 (3.6-5.2) mmol/L Chloride 104 (100-108) mmol/L Carbon Dioxide 32 (21-32) mmol/L Anion Gap 6.0 (5.0-14.0) mmol/L BUN 18 D (7-18) mg/dL Creatinine 0.9 (0.6-1.0) mg/dL Est Cr Clr Drug Dosing 53.67 mL/min Estimated GFR (MDRD) > 60 (>60) Glucose 101 (74-106) mg/dL Calcium 8.8 (8.5-10.1) mg/dL Result Diagrams: 01/15/19 11:35 01/15/19 11:35 Consult PN Assessment/Plan Procedures: Procedures ASSAY OF AMYLASE (02/22/18) ASSAY OF LACTIC ACID (12/03/16) ASSAY OF LIPASE (02/22/18) ASSAY OF TROPONIN QUANT (05/22/16) COMP SCREEN MAMMOGRAM ADD-ON (04/04/16) COMPLETE CBC W/AUTO DIFF WBC (02/22/18) COMPREHEN METABOLIC PANEL (02/22/18) COMPUTER DX MAMMOGRAM ADD-ON (04/07/16) CT ABD & PELV W/CONTRAST (02/22/18) CT HEAD/BRAIN W/O DYE (11/24/15) CT MAXILLOFACIAL W/O DYE (11/24/15) ELECTROCARDIOGRAM TRACING (05/22/16) EMERGENCY DEPT VISIT (02/27/18) EMERGENCY DEPT VISIT (02/22/18) EMERGENCY DEPT VISIT (12/03/16) EMERGENCY DEPT VISIT (03/24/16) EMERGENCY DEPT VISIT (11/24/15) EMERGENCY DEPT VISIT (11/24/15) HOT OR COLD PACKS THERAPY (05/28/14) HYDRATE IV INFUSION ADD-ON (03/24/16) INITIAL OBSERVATION CARE (03/24/16) MANUAL THERAPY 1/> REGIONS (10/29/14) METABOLIC PANEL TOTAL CA (10/17/16) MRI JOINT UPR EXTREM W/O DYE (03/10/14) OBSERVATION CARE DISCHARGE (03/24/16) POLYSOM 6/> YRS 4/> CONSTANTIN (05/23/16) POLYSOM 6/>YRS CPAP 4/> PARM (06/07/16) PROTHROMBIN TIME (12/03/16) PT EVALUATION (10/29/14) PT RE-EVALUATION (06/27/14) ROUTINE VENIPUNCTURE (02/22/18) SCR MAMMO BI INCL CAD (05/21/18) THER/PROPH/DIAG INJ IV PUSH (02/22/18) THER/PROPH/DIAG IV INF INIT (03/24/16) THERAPEUTIC EXERCISES (11/14/14) TX/PRO/DX INJ NEW DRUG ADDON (03/24/16) URINALYSIS AUTO W/SCOPE (03/24/16) X-RAY EXAM OF ABDOMEN (12/03/16) X-RAY EXAM OF ABDOMEN (03/24/16) X-RAY EXAM OF WRIST (11/24/15) Problem List Initiated/Reviewed/Updated: Yes Plan: Check PT/INR in am. Ankle will need ORIF. Can do tomorrow afternoon of PT/INR permit.
[2019-01-15] MEDS ORDERED: oxyCODONE 5 MG Tab PO ONE (17:59)
[2019-01-15] MEDS ORDERED: LORazepam 0.5 MG Tab PO SCH (21:00)
[2019-01-15] MEDS ORDERED: ALPRAZolam 0.5 MG Tab PO SCH (21:00)
[2019-01-15] MEDS: Melatonin 3 MG Tab PO SCH (21:44)
[2019-01-15] MEDS: Citalopram 20 MG Tab PO SCH (21:45)
[2019-01-15] MEDS: oxyCODONE 5 MG Tab PO PRN (21:45)
[2019-01-15] MEDS: Potassium Chloride 20 MEQ Tab.ER PO SCH (21:45)
[2019-01-16] MEDS: oxyCODONE 5 MG Tab PO PRN ×4 (02:09→21:39)
[2019-01-16] MEDS: Acetaminophen 325 MG Tab PO PRN ×2 (06:27→17:49)
[2019-01-16] MEDS: Sodium Chloride 0.9% 1,000 ML IV SCH ×2 (07:23→20:01)
[2019-01-16] MEDS: Diltiazem 120 MG Cap.CD PO SCH (08:23)
[2019-01-16] MEDS: Potassium Chloride 20 MEQ Tab.ER PO SCH ×2 (08:32→20:30)
[2019-01-16] MEDS: Polyethylene Glycol 3350 Powder 17 GM Packet PO SCH (08:32)
[2019-01-16] MEDS: Pravastatin 20 MG Tab PO SCH (08:32)
[2019-01-16] MEDS: ALPRAZolam 0.5 MG Tab PO SCH ×3 (08:33→20:35)
[2019-01-16] MEDS ORDERED: Polyethylene Glycol 3350 Powder 119 GM Bottle PO SCH (09:00)
[2019-01-16] MEDS ORDERED: Bupivacaine 0.5% 50 ML MDV ONE (10:12)
--- NOTE | 2019-01-16 10:12 | PCM.PN ---
- General Info Date of Service: 01/16/19 Subjective Update: Ms. Mendiola has been stable since admission yesterday, current pain control is adequate. Vital signs have been stable and she has remained afebrile. After receiving vitamin K intravenously INR is down to 1.24. Functional Status: Reports: Pain Controlled, Urinating - Review of Systems General: Reports: Weakness. Denies: Fever, Chills Pulmonary: Reports: No Symptoms Cardiovascular: Reports: No Symptoms Gastrointestinal: Reports: No Symptoms Musculoskeletal: Reports: Other (Right ankle pain) - Patient Data Vitals - Most Recent: Last Vital Signs Temp 99.4 F 01/16/19 07:17 Pulse 96 01/16/19 08:23 Resp 16 01/16/19 07:17 BP 96/62 01/16/19 08:23 Pulse Ox 92 L 01/16/19 07:17 Weight - Most Recent: 280 lb 0.005 oz I&O - Last 24 Hours: Intake & Output 01/15/19 01/16/19 01/16/19 22:59 06:59 14:59 Intake Total 933 2286 Balance 933 2286 Lab Results Last 24 Hours: Laboratory Results - last 24 hr 01/15/19 01/15/19 01/15/19 Range/Units 11:35 11:35 12:00 WBC 4.9 (4.5-11.0) K/uL RBC 4.12 (3.30-5.50) M/uL Hgb 12.3 (12.0-15.0) g/dL Hct 38.6 (36.0-48.0) % MCV 94 (80-98) fL MCH 30 (27-31) pg MCHC 32 (32-36) % Plt Count 206 (150-400) K/uL Neut % (Auto) 72 H (36-66) % Lymph % (Auto) 15 L (24-44) % [place] % (Auto) 9 H (2-6) % Eos % (Auto) 3 (2-4) % Baso % (Auto) 1 (0-1) % PT 25.2 H (9.5-12.0) sec INR 2.41 H D (0.80-1.20) Sodium 142 (140-148) mmol/L Potassium 4.2 (3.6-5.2) mmol/L Chloride 104 (100-108) mmol/L Carbon Dioxide 32 (21-32) mmol/L Anion Gap 6.0 (5.0-14.0) mmol/L BUN 18 D (7-18) mg/dL Creatinine 0.9 (0.6-1.0) mg/dL Est Cr Clr Drug Dosing 53.67 mL/min Estimated GFR (MDRD) > 60 (>60) Glucose 101 (74-106) mg/dL Calcium 8.8 (8.5-10.1) mg/dL 01/16/19 Range/Units 05:12 WBC (4.5-11.0) K/uL RBC (3.30-5.50) M/uL Hgb (12.0-15.0) g/dL Hct (36.0-48.0) % MCV (80-98) fL MCH (27-31) pg MCHC (32-36) % Plt Count (150-400) K/uL Neut % (Auto) (36-66) % Lymph % (Auto) (24-44) % [place] % (Auto) (2-6) % Eos % (Auto) (2-4) % Baso % (Auto) (0-1) % PT 13.5 H (9.5-12.0) sec INR 1.24 H (0.80-1.20) Sodium (140-148) mmol/L Potassium (3.6-5.2) mmol/L Chloride (100-108) mmol/L Carbon Dioxide (21-32) mmol/L Anion Gap (5.0-14.0) mmol/L BUN (7-18) mg/dL Creatinine (0.6-1.0) mg/dL Est Cr Clr Drug Dosing mL/min Estimated GFR (MDRD) (>60) Glucose (74-106) mg/dL Calcium (8.5-10.1) mg/dL Med Orders - Current: Current Medications Acetaminophen (Tylenol) 650 mg PO Q4H PRN PRN Reason: Pain (Mild 1-3)/fever Last Admin: 01/16/19 06:27 Dose: 650 mg Albuterol (Ventolin Hfa) 0 gm INH Q6H PRN PRN Reason: Shortness of Breath Albuterol/Ipratropium (Duoneb 3.0-0.5 Mg/3 Ml) 3 ml NEB QID PRN PRN Reason: Shortness Of Breath/wheezing Alprazolam (Xanax) 0.5 mg PO TID [facility] Last Admin: 01/16/19 08:33 Dose: Not Given Citalopram Hydrobromide (Celexa) 40 mg PO BEDTIME [facility] Last Admin: 01/15/19 21:45 Dose: 40 mg Diltiazem HCl (Cardizem Cd) 240 mg PO DAILY [facility] Last Admin: 01/16/19 08:23 Dose: 240 mg Sodium Chloride (Normal Saline) 1,000 mls @ 125 mls/hr IV ASDIRECTED [facility] Last Admin: 01/16/19 07:23 Dose: 125 mls/hr Melatonin (Melatonin) 9 mg PO BEDTIME [facility] Last Admin: 01/15/19 21:44 Dose: 9 mg Ondansetron HCl (Zofran) 4 mg IV Q4H PRN PRN Reason: Nausea/Vomiting Oxycodone HCl (Oxycodone) 10 mg PO Q4H PRN PRN Reason: Pain (moderate 4-6) Last Admin: 01/16/19 06:27 Dose: 10 mg Polyethylene Glycol (Miralax) 17 gm PO DAILY [facility] Last Admin: 01/16/19 08:32 Dose: Not Given Potassium Chloride (Klor-Con M20) 20 meq PO BID [facility] Last Admin: 01/16/19 08:32 Dose: Not Given Pravastatin Sodium (Pravachol) 20 mg PO DAILY [facility] Last Admin: 01/16/19 08:32 Dose: Not Given Senna/Docusate Sodium (Senna Plus) 1 tab PO BID PRN PRN Reason: Constipation Sodium Chloride (Saline Flush) 10 ml FLUSH ASDIRECTED PRN PRN Reason: Keep Vein Open Discontinued Medications Alprazolam (Xanax) 0.5 mg PO BID [facility] Fentanyl (Sublimaze) 50 mcg IVPUSH ONETIME ONE Stop: 01/15/19 11:44 Last Admin: 01/15/19 11:46 Dose: 50 mcg Fentanyl (Sublimaze) 25 mcg IVPUSH ONETIME ONE Stop: 01/15/19 13:10 Last Admin: 01/15/19 13:14 Dose: 25 mcg Phytonadione 5 mg/ Sodium (Chloride) 50.5 mls @ 100 mls/hr IV NOW ONE Stop: 01/15/19 12:49 Last Admin: 01/15/19 12:43 Dose: 100 mls/hr Oxycodone HCl (Oxycodone) 5 mg PO Q4H PRN PRN Reason: Pain (moderate 4-6) Last Admin: 01/15/19 14:46 Dose: 5 mg Oxycodone HCl (Oxycodone) 5 mg PO ONETIME ONE Stop: 01/15/19 18:00 Last Admin: 01/15/19 18:14 Dose: 5 mg Propofol (Diprivan 20 Ml) 100 mg IVPUSH ONETIME ONE Stop: 01/15/19 11:04 Last Admin: 01/15/19 11:34 Dose: 80 mg - Exam General: Alert, Oriented, Cooperative, Mild Distress Lungs: Clear to Auscultation, Normal Respiratory Effort Cardiovascular: Regular Rate, Regular Rhythm, No Murmurs GI/Abdominal Exam: Soft, Non-Tender, No Organomegaly, No Distention - Problem List Review Problem List Initiated/Reviewed/Updated: Yes - My Orders Last 24 Hours: My Active Orders 01/15/19 12:12 Resuscitation Status Routine 01/15/19 13:51 Patient Status [ADT] Routine Ambulate [RC] QID Height and Weight [RC] DAILY Intake and Output [RC] QSHIFT Notify Provider Consults [RC] ASDIRECTED Notify Provider Vital Signs [RC] ASDIRECTED Oxygen Therapy [RC] PRN Peripheral IV Care [RC] . DIRECTED Pulse Oximetry [RC] CONTINUOUS RT Aerosol Therapy [RC] ASDIRECTED Up With Assistance [RC] ASDIRECTED Up to Chair [RC] QID VTE/DVT Education [RC] Per Unit Routine Vital Signs [RC] Q4H Consult to Physician [CONS] Routine Acetaminophen [Tylenol] 650 mg PO Q4H PRN Albuterol [Ventolin HFA] 0 gm INH Q6H PRN Albuterol/Ipratropium [DuoNeb 3.0-0.5 MG/3 ML] 3 ml NEB QID PRN Docusate Sodium/Sennosides [Senna Plus] 1 tab PO BID PRN Ondansetron [Zofran] 4 mg IV Q4H PRN Sodium Chloride 0.9% [Normal Saline] 1,000 ml IV ASDIRECTED Sodium Chloride 0.9% [Saline Flush] 10 ml FLUSH ASDIRECTED PRN Peripheral IV Insertion Adult [OM.PC] Routine VTE Pharmacological Contraindications [AST] Per Unit Routine EKG 12 Lead [EK] Stat 01/15/19 17:00 ALPRAZolam [Xanax] 0.5 mg PO TID 01/15/19 18:00 oxyCODONE 10 mg PO Q4H PRN 01/15/19 21:00 Citalopram [Celexa] 40 mg PO BEDTIME Melatonin 9 mg PO BEDTIME Potassium Chloride [Klor-Con M20] 20 meq PO BID 01/16/19 09:00 Diltiazem [Cardizem CD] 240 mg PO DAILY Polyethylene Glycol 3350 [MiraLAX] 17 gm PO DAILY Pravastatin [Pravachol] 20 mg PO DAILY 01/16/19 Breakfast Nothing per Oral After Midnight Diet [DIET] - Plan Plan:: ASSESSMENT AND PLAN RIGHT ANKLE FRACTURE/DISLOCATION-stable since admission yesterday. INR is now down to 1.24 -Orthopedic follow-up per Dr. West, surgical repair later today -IV fluids for hydration -Nothing by mouth after midnight -Pain medication as needed -Reverse anticoagulation with IV vitamin K ATRIAL FIBRILLATION-on long-term oral anticoagulation with warfarin. Rate control currently adequate on oral diltiazem. -Continue diltiazem -Hold warfarin HISTORY OF FLUID RETENTION-on daily diuretic therapy -Hold diuretic therapy until after surgery MAINTENANCE ISSUES -DVT prophylaxis; INR is currently therapeutic and should provide adequate DVT prophylaxis until reversed -GI prophylaxis; not indicated -Phillips catheter; not indicated -Nutrition; regular diet, nothing by mouth after midnight -Nicotine dependence; not required CODE STATUS-FULL CODE ADMISSION STATUS-patient will be admitted to inpatient status, expect at least a 2 night hospital stay for evaluation and management of problems as outlined above. At the time of this admission I do not reasonably expected evaluation and management of this problem will require more than a 96 hour hospital stay. DISPOSITION-anticipate discharge to home after the hospital stay. 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 Phipps
[2019-01-16] MEDS ORDERED: Propofol 200 MG/20 ML SDV ONE (11:38)
[2019-01-16] MEDS ORDERED: fentaNYL 250 MCG/5 ML SDV ONE (11:38)
[2019-01-16] MEDS ORDERED: Succinylcholine 200 MG/10 ML MDV ONE (11:38)
[2019-01-16] MEDS ORDERED: Rocuronium 50 MG/5 ML Vial ONE (11:38)
[2019-01-16] MEDS ORDERED: Dexamethasone 4 MG/ML SDV ONE (11:38)
[2019-01-16] MEDS ORDERED: Ondansetron 4 MG/2 ML SDV ONE (11:38)
[2019-01-16] MEDS ORDERED: ceFAZolin 1 GM Vial ONE (12:07)
[2019-01-16] MEDS ORDERED: Morphine 2 MG/ML Syringe IVPUSH PRN (13:53)
--- NOTE | 2019-01-16 16:36 | PCM.OPNOTE ---
- General Post-Op/Procedure Note Date of Surgery/Procedure: 01/16/19 Operative Procedure(s): Open Reduction and Internal Fixation right ankle Findings: Trimalleolar fracture with comminuted fibula Pre Op Diagnosis: right ankle dislocation with unstable trimalleolar fracture Post-Op Diagnosis: Same Anesthesia Technique: General ET Tube Primary Surgeon: Guillermo COLE in mLs: 120 Complications: None Condition: Good Free Text/Narrative:: Intake & Output 01/16/19 01/16/19 01/16/19 06:59 14:59 22:59 Intake Total 2286 Balance 2286 Indications: Shavon is a 69-year-old female whohad a slip and fall resulting in a right ankle dislocation. Dislocation caused a trimalleolar fracture with comminution of the fibula.Patient is on anticoagulation therapy for atrial fibrillation. She was admitted to the hospital and anticoagulation was reversed with vitamin K. She is taken to the operating room today for fixation of unstable right ankle fracture.Risks, benefits and potential complications were discussed with the patient and her family. Procedure after adequate anesthesia was obtained patient was placed supine with a ball under the right hip. Right leg was prepped and draped in a sterile fashion with a tourniquet about the upper thigh. It was exsanguinated and tourniquet inflated to 300 mg of mercury pressure.Longitudinal incision was made over the lateral aspect of the ankle and carried down to the fibula. A mildly comminuted fracture of the fibula was noted. Bone clamps were used to reduce the fracture fragments. A Synthes contoured low-profile fibula plate was selected.This was secured to the fibula with locking screws distally and 3.5 mm cortical screws proximally. Final position of the reduction and hardware was evaluated with fluoroscopy.This was irrigated and attention was then turned to the medial aspect of the ankle. Incision was made over the medial malleolus. The fracture fragment was identified. As had been avulsed sleeve of periosteum which was folded into the fracture site.Periosteum was cleared and the fracture was then reduced and held with a bone clamp. A 4 mm partially-threaded cancellous screw was then placed compressing the fracture.A small stab incision was then made anteriorly just above the level of the joint.Blunt dissection carried down to the anterior tibia. Using fluoroscopy a drill hole was made from anterior to posterior into the posterior malleolar fragment. This was done with the foot in dorsiflexion reducing the fragment in adequate position. A partially-threaded 4.0 mm cancellus screw was then placed with a washer compressing the posterior fragment. Final position of hardware and fracture reduction was confirmed using fluoroscopy. All of the incisions were then irrigated. Incisions were then closed with 0 Vicryl in the deep layer. 2-0 Vicryl and 3-0 Monocryl on the skin.Steri-Strips were applied. Xeroform gauze and 4 x 4's were placed over the incision and wrapped with sterile cast padding. A well-padded AO plaster splint was then applied with the foot in neutral position.Patient tolerated the procedure very well and there were no complications, she was taken from the operating room in stable condition.
[2019-01-16] MEDS: Nozin Nasal Sanitizer NASBOTH SCH (20:29)
[2019-01-16] MEDS: Melatonin 3 MG Tab PO SCH (20:29)
[2019-01-16] MEDS: Citalopram 20 MG Tab PO SCH (20:30)
[2019-01-16] MEDS: diphenhydrAMINE 50 MG/ML SDV IVPUSH PRN (21:39)
[2019-01-17] MEDS: oxyCODONE 5 MG Tab PO PRN ×2 (03:41→09:08)
[2019-01-17] MEDS: Sodium Chloride 0.9% 1,000 ML IV SCH (03:42)
[2019-01-17] MEDS: ALPRAZolam 0.5 MG Tab PO SCH ×3 (08:53→20:13)
[2019-01-17] MEDS: diphenhydrAMINE 50 MG/ML SDV IVPUSH PRN (09:09)
[2019-01-17] MEDS: Diltiazem 120 MG Cap.CD PO SCH (09:13)
[2019-01-17] MEDS: Pravastatin 20 MG Tab PO SCH (09:15)
[2019-01-17] MEDS: Polyethylene Glycol 3350 Powder 17 GM Packet PO SCH (09:15)
[2019-01-17] MEDS: Potassium Chloride 20 MEQ Tab.ER PO SCH ×2 (09:16→20:13)
[2019-01-17] MEDS: Nozin Nasal Sanitizer NASBOTH SCH ×2 (09:17→20:13)
--- NOTE | 2019-01-17 10:46 | PCM.PN ---
- General Info Date of Service: 01/17/19 Subjective Update: Ms. Mendiola has been stable following surgical repair of her ankle fracture yesterday by Dr. West. It experience some pruritus related to use of oxycodone, resolved with use of Benadryl. More alert and interactive this morning and reports good pain control. Functional Status: Reports: Tolerating Diet, Urinating - Review of Systems General: Reports: Weakness. Denies: Fever, Chills Cardiovascular: Reports: No Symptoms Gastrointestinal: Reports: No Symptoms Genitourinary: Reports: No Symptoms - Patient Data Vitals - Most Recent: Last Vital Signs Temp 98.3 F 01/17/19 07:21 Pulse 100 01/17/19 09:13 Resp 8 L 01/17/19 07:21 BP 103/62 01/17/19 09:13 Pulse Ox 96 01/17/19 07:21 Weight - Most Recent: 280 lb 0.005 oz I&O - Last 24 Hours: Intake & Output 01/16/19 01/17/19 01/17/19 22:59 06:59 14:59 Intake Total 1405 2588 900 Output Total 930 1000 Balance 475 1588 900 Med Orders - Current: Current Medications Hydrocodone Bitart/Acetaminophen ([place] 325-5 Mg) 1 tab PO Q4H PRN PRN Reason: Pain Albuterol (Ventolin Hfa) 0 gm INH Q6H PRN PRN Reason: Shortness of Breath Albuterol/Ipratropium (Duoneb 3.0-0.5 Mg/3 Ml) 3 ml NEB QID PRN PRN Reason: Shortness Of Breath/wheezing Alprazolam (Xanax) 0.5 mg PO TID COUNT INCLUDES THE [facility] Last Admin: 01/17/19 08:53 Dose: 0.5 mg Bandage/Support Products ( Nasal [employer]ship) 1 applic NASBOTH BID COUNT INCLUDES THE [facility] Last Admin: 01/17/19 09:17 Dose: 1 applic Citalopram Hydrobromide (Celexa) 40 mg PO BEDTIME COUNT INCLUDES THE [facility] Last Admin: 01/16/19 20:30 Dose: 40 mg Diltiazem HCl (Cardizem Cd) 240 mg PO DAILY COUNT INCLUDES THE [facility] Last Admin: 01/17/19 09:13 Dose: 240 mg Melatonin (Melatonin) 9 mg PO BEDTIME COUNT INCLUDES THE [facility] Last Admin: 01/16/19 20:29 Dose: 9 mg Morphine Sulfate (Morphine) 2 mg IVPUSH Q1H PRN PRN Reason: Pain (severe 7-10) Ondansetron HCl (Zofran) 4 mg IV Q4H PRN PRN Reason: Nausea/Vomiting Polyethylene Glycol (Miralax) 17 gm PO DAILY COUNT INCLUDES THE [facility] Last Admin: 01/17/19 09:15 Dose: 17 gm Potassium Chloride (Klor-Con M20) 20 meq PO BID COUNT INCLUDES THE [facility] Last Admin: 01/17/19 09:16 Dose: 20 meq Pravastatin Sodium (Pravachol) 20 mg PO DAILY COUNT INCLUDES THE [facility] Last Admin: 01/17/19 09:15 Dose: 20 mg Senna/Docusate Sodium (Senna Plus) 1 tab PO BID PRN PRN Reason: Constipation Sodium Chloride (Saline Flush) 10 ml FLUSH ASDIRECTED PRN PRN Reason: Keep Vein Open Discontinued Medications Acetaminophen (Tylenol) 650 mg PO Q4H PRN PRN Reason: Pain (Mild 1-3)/fever Last Admin: 01/16/19 17:49 Dose: 650 mg Alprazolam (Xanax) 0.5 mg PO BID COUNT INCLUDES THE [facility] Bupivacaine HCl (Marcaine 0.5%) Confirm Administered Dose 50 ml .ROUTE .STK-MED ONE Stop: 01/16/19 10:13 Cefazolin Sodium (Ancef) Confirm Administered Dose 2 gm .ROUTE .STK-MED ONE Stop: 01/16/19 12:08 Dexamethasone (Dexamethasone) Confirm Administered Dose 4 mg .ROUTE .STK-MED ONE Stop: 01/16/19 11:39 Diphenhydramine HCl (Benadryl) 25 mg IVPUSH Q4H PRN PRN Reason: Itching Last Admin: 01/17/19 09:09 Dose: 25 mg Fentanyl (Sublimaze) 50 mcg IVPUSH ONETIME ONE Stop: 01/15/19 11:44 Last Admin: 01/15/19 11:46 Dose: 50 mcg Fentanyl (Sublimaze) 25 mcg IVPUSH ONETIME ONE Stop: 01/15/19 13:10 Last Admin: 01/15/19 13:14 Dose: 25 mcg Fentanyl (Sublimaze) Confirm Administered Dose 250 mcg .ROUTE .STK-MED ONE Stop: 01/16/19 11:39 Phytonadione 5 mg/ Sodium (Chloride) 50.5 mls @ 100 mls/hr IV NOW ONE Stop: 01/15/19 12:49 Last Admin: 01/15/19 12:43 Dose: 100 mls/hr Sodium Chloride (Normal Saline) 1,000 mls @ 125 mls/hr IV ASDIRECTED BEBE Last Admin: 01/17/19 03:42 Dose: 125 mls/hr Ondansetron HCl (Zofran) Confirm Administered Dose 4 mg .ROUTE .STK-MED ONE Stop: 01/16/19 11:39 Oxycodone HCl (Oxycodone) 5 mg PO Q4H PRN PRN Reason: Pain (moderate 4-6) Last Admin: 01/15/19 14:46 Dose: 5 mg Oxycodone HCl (Oxycodone) 5 mg PO ONETIME ONE Stop: 01/15/19 18:00 Last Admin: 01/15/19 18:14 Dose: 5 mg Oxycodone HCl (Oxycodone) 10 mg PO Q4H PRN PRN Reason: Pain (moderate 4-6) Last Admin: 01/17/19 09:08 Dose: 10 mg Propofol (Diprivan 20 Ml) 100 mg IVPUSH ONETIME ONE Stop: 01/15/19 11:04 Last Admin: 01/15/19 11:34 Dose: 80 mg Propofol (Diprivan 20 Ml) Confirm Administered Dose 200 mg .ROUTE .STK-MED ONE Stop: 01/16/19 11:39 Rocuronium [place] (Zemuron) Confirm Administered Dose 50 mg .ROUTE .STK-MED ONE Stop: 01/16/19 11:39 Succinylcholine Chloride (Quelicin) Confirm Administered Dose 200 mg .ROUTE .STK -MED ONE Stop: 01/16/19 11:39 - Exam Quality Assessment: Supplemental Oxygen, DVT Prophylaxis General: Alert, Oriented, Cooperative, Mild Distress Lungs: Clear to Auscultation, Normal Respiratory Effort Cardiovascular: Regular Rate, Regular Rhythm, No Murmurs GI/Abdominal Exam: Soft, Non-Tender, No Organomegaly, No Distention - Problem List Review Problem List Initiated/Reviewed/Updated: Yes - My Orders Last 24 Hours: My Active Orders 01/17/19 10:41 Acetaminophen/HYDROcodone [[place] 325-5 MG] 1 tab PO Q4H PRN 01/17/19 10:42 Convert IV to Saline Lock [OM.PC] Routine - Plan Plan:: ASSESSMENT AND PLAN RIGHT ANKLE FRACTURE/DISLOCATION-status post surgical repair by Dr. West yesterday -Orthopedic follow-up per Dr. West -Saline lock IV -Pain medication as needed ATRIAL FIBRILLATION-on long-term oral anticoagulation with warfarin. Rate control currently adequate on oral diltiazem. Warfarin has been held and reversed with IV vitamin K -Continue diltiazem -Hold warfarin, resume when safe from a surgical standpoint HISTORY OF FLUID RETENTION-on daily diuretic therapy -Resume diuretic therapy today MAINTENANCE ISSUES -DVT prophylaxis; INR is currently therapeutic and should provide adequate DVT prophylaxis until reversed -GI prophylaxis; not indicated -Phillips catheter; not indicated -Nutrition; regular diet, nothing by mouth after midnight -Nicotine dependence; not required CODE STATUS-FULL CODE ADMISSION STATUS-patient will be admitted to inpatient status, expect at least a 2 night hospital stay for evaluation and management of problems as outlined above. At the time of this admission I do not reasonably expected evaluation and management of this problem will require more than a 96 hour hospital stay. DISPOSITION-anticipate discharge to home after the hospital stay. 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 Phipps
[2019-01-17] MEDS ORDERED: Torsemide 20 MG Tab PO SCH (11:00)
[2019-01-17] MEDS ORDERED: Warfarin 5 MG Tab PO ONE (12:00)
[2019-01-17] MEDS: Enoxaparin 40 MG/0.4 ML Syringe SUBCUT SCH (13:39)
[2019-01-17] MEDS: Acetaminophen/HYDROcodone 325-5 MG Tab PO PRN ×2 (13:39→17:58)
[2019-01-17] MEDS: Tamsulosin 0.4 MG Cap.ER PO SCH (20:13)
[2019-01-17] MEDS: Citalopram 20 MG Tab PO SCH (20:13)
[2019-01-17] MEDS: Melatonin 3 MG Tab PO SCH (20:13)
[2019-01-18] MEDS: Acetaminophen/HYDROcodone 325-5 MG Tab PO PRN ×2 (07:27→13:20)
[2019-01-18] MEDS: Nozin Nasal Sanitizer NASBOTH SCH (08:15)
[2019-01-18] MEDS: Tamsulosin 0.4 MG Cap.ER PO SCH (08:16)
[2019-01-18] MEDS: Diltiazem 120 MG Cap.CD PO SCH (08:20)
[2019-01-18] MEDS: Pravastatin 20 MG Tab PO SCH (08:20)
[2019-01-18] MEDS: Potassium Chloride 20 MEQ Tab.ER PO SCH (08:21)
[2019-01-18] MEDS: Polyethylene Glycol 3350 Powder 17 GM Packet PO SCH (08:23)
[2019-01-18] MEDS: ALPRAZolam 0.5 MG Tab PO SCH ×2 (08:24→13:50)
[2019-01-18] MEDS ORDERED: Sodium Phosphate,Monobasic/Sodium Phosphate,Dibasic Enema 133 ML Bottle RECTAL PRN (10:54)
[2019-01-18] MEDS ORDERED: Bisacodyl 10 MG Supp RECTAL ONE (10:54)
[2019-01-18 10:58] VITALS: BP 85/45
[2019-01-18] MEDS: Enoxaparin 40 MG/0.4 ML Syringe SUBCUT SCH (11:15)
--- NOTE | 2019-01-18 12:48 | PCM.DCSUM1 ---
Discharge Summary - Hospital Course Brief History: Ms. Mendiola is a 69-year-old woman who is admitted through the emergency department with a right ankle fracture and dislocation, as a result of fall. - Discharge Data Discharge Date: 01/18/19 Discharge Disposition: DC/Tfer to SNF 03 Condition: Fair - Patient Summary/Data Operative Procedure(s) Performed: Open Reduction and Internal Fixation right ankle Consults: Consultations 01/15/19 13:51 Consult to Physician [CONS] Routine Consulting Provider: Guillermo West Call Completed to Consulting Physician: Yes Reason for Consult: Right ankle fracture/dislocation 01/16/19 13:54 Consult to Physical Therapy [PT Evaluation and Treatment] [CONS] Routine Please Evaluate and Treat. PT Reason for Consult: Ambulation Pending Discharge: Yes Discharge Disposition: Custodial Facility Special Instructions: Toe Touch Weight bearing on right This query below is only for informational purposes and is not editable. Admission Diagnosis/Problem: Fracture dislocation of ankle 01/16/19 13:55 Consult to Occupational Therapy [OT Evaluation and Treatment] [CONS] Routine Please Evaluate and Treat. OT Reason for Consult: ADL's Pending Discharge: Yes Discharge Disposition: Custodial Facility This query below is only for informational purposes and is not editable. Admission Diagnosis/Problem: Fracture dislocation of ankle Hospital Course: Ms. Mendiola is a 69-year-old woman admitted through the emergency department for further evaluation and management of a right ankle fracture/dislocation. She was doing well when she fell on the ice and noted immediate pain in her right ankle. She was brought into the emergency department, x-ray showed fracture and dislocation of the right ankle. She was seen and evaluated in the emergency department by Dr. West and the dislocation was reduced. Other than obesity she is been fairly healthy but does have underlying atrial fibrillation and is on long-term oral anticoagulation with warfarin, INR today was 2.4. Other than the atrial fibrillation has no history of significant cardiac disease or pulmonary disease. She has had some difficulty with fluid overload requiring daily use of diuretic therapy. She has had previous surgery with general anesthetic and denies any history of adverse effect or family history of adverse reaction to general anesthetic. She denies any history of deep vein thrombosis, pulmonary embolism, or significant bleeding abnormality. On admission she was given IV fluid for hydration as well as medication as needed for pain and nausea. Anticoagulation was reversed with vitamin K 5 mg IV. She was kept nothing by mouth and was reassessed the following morning by Dr. West. Was felt that she would benefit from surgical repair of the bimalleolar fracture and she was taken to the operating room where the fractures were repaired. The day after artery she was started back on oral anticoagulation with warfarin 5 mg daily and was also placed Lovenox 40 mg subcutaneous daily. She did well through the rest of her hospital stay, but is very limited in activity because of no weightbearing on the right foot. She will be continued on the warfarin 5 mg daily through the weekend and a follow- up INR should be obtained on January 21. Lovenox 40 mg subcutaneous daily will be continued for one week. While at the [facility] she will be seen daily by physical therapy and occupational therapy. There should be no weightbearing on the right foot or leg. All up appointment will be scheduled with Dr. West in one to 2 weeks. Activity will otherwise be as tolerated and she will be on a regular diet. - Patient Instructions Other/Special Instructions: Physical therapy and occupational therapy while at the [facility]. Lab; INR on January 21. Please schedule follow-up appointment with Dr. West within one to 2 weeks. - Discharge Plan *PRESCRIPTION DRUG MONITORING PROGRAM REVIEWED*: Not Applicable *COPY OF PRESCRIPTION DRUG MONITORING REPORT IN PATIENT MATTEO: Not Applicable Prescriptions/Med Rec: Acetaminophen/HYDROcodone [[place] 325-5 MG] 1 tab PO Q4H PRN #20 tablet PRN Reason: Pain Enoxaparin [Lovenox] 40 mg SUBCUT Q24H #7 syringe Home Medications: Home Meds ALPRAZolam [Alprazolam] 0.5 mg PO BID 11/24/15 [History] Citalopram Hydrobromide [Celexa] 40 mg PO BEDTIME 11/24/15 [History] Diltiazem HCl [Cartia Xt] 240 mg PO DAILY 11/24/15 [History] Potassium Chloride [Klor-Con M20] 20 meq PO BID 11/24/15 [History] Pravastatin [Pravachol] 20 mg PO DAILY 11/24/15 [History] Polyethylene Glycol 3350 [MiraLAX] 17 gm PO DAILY #1 cont 03/25/16 [Rx] Fish Oil/[place]-3 Fatty Acids [Fish Oil 1,000 MG] 1 cap PO BID 10/17/16 [History] Ondansetron [Zofran ODT] 4 mg PO Q6H PRN #5 tab.dis 12/03/16 [Rx] Albuterol Sulfate [Proair Hfa] 2 puff INH Q6H PRN 01/15/19 [History] Cholecalciferol (Vitamin D3) [Vitamin D3] 1,000 unit PO DAILY 01/15/19 [History] Melatonin 10 mg PO BEDTIME 01/15/19 [History] Torsemide 20 mg PO Q48H 01/15/19 [History] Acetaminophen/HYDROcodone [[place] 325-5 MG] 1 tab PO Q4H PRN #20 tablet 01/18/19 [Rx] Enoxaparin [Lovenox] 40 mg SUBCUT Q24H #7 syringe 01/18/19 [Rx] Warfarin Sodium 5 mg PO DAILY #0 01/18/19 [Rx] - Discharge Summary/Plan Comment DC Time >30 min.: No - Patient Data Vitals - Most Recent: Last Vital Signs Temp 98.3 F 01/18/19 10:54 Pulse 78 01/18/19 10:54 Resp 18 01/18/19 10:54 BP 85/45 L 01/18/19 10:54 Pulse Ox 94 L 01/18/19 10:54 Weight - Most Recent: 310 lb 8 oz I&O - Last 24 hours: Intake & Output 01/17/19 01/18/19 01/18/19 22:59 06:59 14:59 Intake Total 600 Output Total 700 1500 Balance -700 -900 Lab Results - Last 24 hrs: Laboratory Results - last 24 hr 01/18/19 Range/Units 05:11 PT 12.9 H (9.5-12.0) sec INR 1.18 (0.80-1.20) Med Orders - Current: Current Medications Hydrocodone Bitart/Acetaminophen ([place] 325-5 Mg) 1 tab PO Q4H PRN PRN Reason: Pain Last Admin: 01/18/19 07:27 Dose: 1 tab Albuterol (Ventolin Hfa) 0 gm INH Q6H PRN PRN Reason: Shortness of Breath Albuterol/Ipratropium (Duoneb 3.0-0.5 Mg/3 Ml) 3 ml NEB QID PRN PRN Reason: Shortness Of Breath/wheezing Alprazolam (Xanax) 0.5 mg PO TID [facility] Last Admin: 01/18/19 08:24 Dose: 0.5 mg Bandage/Support Products ( Nasal Baggagemaster) 1 applic NASBOTH BID [facility] Last Admin: 01/18/19 08:15 Dose: 1 applic Citalopram Hydrobromide (Celexa) 40 mg PO BEDTIME [facility] Last Admin: 01/17/19 20:13 Dose: 40 mg Diltiazem HCl (Cardizem Cd) 240 mg PO DAILY [facility] Last Admin: 01/18/19 08:20 Dose: 240 mg Enoxaparin Sodium (Lovenox) 40 mg SUBCUT Q24H [facility] Last Admin: 01/18/19 11:15 Dose: 40 mg Melatonin (Melatonin) 9 mg PO BEDTIME [facility] Last Admin: 01/17/19 20:13 Dose: 9 mg Morphine Sulfate (Morphine) 2 mg IVPUSH Q1H PRN PRN Reason: Pain (severe 7-10) Ondansetron HCl (Zofran) 4 mg IV Q4H PRN PRN Reason: Nausea/Vomiting Polyethylene Glycol (Miralax) 17 gm PO DAILY [facility] Last Admin: 01/18/19 08:23 Dose: 17 gm Potassium Chloride (Klor-Con M20) 20 meq PO BID [facility] Last Admin: 01/18/19 08:21 Dose: 20 meq Pravastatin Sodium (Pravachol) 20 mg PO DAILY [facility] Last Admin: 01/18/19 08:20 Dose: 20 mg Senna/Docusate Sodium (Senna Plus) 1 tab PO BID PRN PRN Reason: Constipation Last Admin: 01/17/19 17:58 Dose: 1 tab Sodium Biphosphate/Sodium Phosphate (Fleet Enema) 133 ml RECTAL ONETIME PRN PRN Reason: Constipation Sodium Chloride (Saline Flush) 10 ml FLUSH ASDIRECTED PRN PRN Reason: Keep Vein Open Tamsulosin HCl (Flomax) 0.4 mg PO DAILY [facility] Last Admin: 01/18/19 08:16 Dose: 0.4 mg Torsemide (Demadex) 20 mg PO Q48H [facility] Last Admin: 01/17/19 11:20 Dose: 20 mg Warfarin Sodium (Coumadin) 5 mg PO DAILY@1300 [facility] Discontinued Medications Acetaminophen (Tylenol) 650 mg PO Q4H PRN PRN Reason: Pain (Mild 1-3)/fever Last Admin: 01/16/19 17:49 Dose: 650 mg Alprazolam (Xanax) 0.5 mg PO BID [facility] Bisacodyl (Dulcolax) 10 mg RECTAL ONETIME ONE Stop: 01/18/19 10:55 Last Admin: 01/18/19 11:16 Dose: 10 mg Bupivacaine HCl (Marcaine 0.5%) Confirm Administered Dose 50 ml .ROUTE .STK-MED ONE Stop: 01/16/19 10:13 Cefazolin Sodium (Ancef) Confirm Administered Dose 2 gm .ROUTE .STK-MED ONE Stop: 01/16/19 12:08 Dexamethasone (Dexamethasone) Confirm Administered Dose 4 mg .ROUTE .STK-MED ONE Stop: 01/16/19 11:39 Diphenhydramine HCl (Benadryl) 25 mg IVPUSH Q4H PRN PRN Reason: Itching Last Admin: 01/17/19 09:09 Dose: 25 mg Fentanyl (Sublimaze) 50 mcg IVPUSH ONETIME ONE Stop: 01/15/19 11:44 Last Admin: 01/15/19 11:46 Dose: 50 mcg Fentanyl (Sublimaze) 25 mcg IVPUSH ONETIME ONE Stop: 01/15/19 13:10 Last Admin: 01/15/19 13:14 Dose: 25 mcg Fentanyl (Sublimaze) Confirm Administered Dose 250 mcg .ROUTE .STK-MED ONE Stop: 01/16/19 11:39 Phytonadione 5 mg/ Sodium (Chloride) 50.5 mls @ 100 mls/hr IV NOW ONE Stop: 01/15/19 12:49 Last Admin: 01/15/19 12:43 Dose: 100 mls/hr Sodium Chloride (Normal Saline) 1,000 mls @ 125 mls/hr IV ASDIRECTED BEBE Last Admin: 01/17/19 03:42 Dose: 125 mls/hr Ondansetron HCl (Zofran) Confirm Administered Dose 4 mg .ROUTE .STK-MED ONE Stop: 01/16/19 11:39 Oxycodone HCl (Oxycodone) 5 mg PO Q4H PRN PRN Reason: Pain (moderate 4-6) Last Admin: 01/15/19 14:46 Dose: 5 mg Oxycodone HCl (Oxycodone) 5 mg PO ONETIME ONE Stop: 01/15/19 18:00 Last Admin: 01/15/19 18:14 Dose: 5 mg Oxycodone HCl (Oxycodone) 10 mg PO Q4H PRN PRN Reason: Pain (moderate 4-6) Last Admin: 01/17/19 09:08 Dose: 10 mg Propofol (Diprivan 20 Ml) 100 mg IVPUSH ONETIME ONE Stop: 01/15/19 11:04 Last Admin: 01/15/19 11:34 Dose: 80 mg Propofol (Diprivan 20 Ml) Confirm Administered Dose 200 mg .ROUTE .STK-MED ONE Stop: 01/16/19 11:39 Rocuronium [place] (Zemuron) Confirm Administered Dose 50 mg .ROUTE .STK-MED ONE Stop: 01/16/19 11:39 Succinylcholine Chloride (Quelicin) Confirm Administered Dose 200 mg .ROUTE .STK -MED ONE Stop: 01/16/19 11:39 Warfarin Sodium (Coumadin) 5 mg PO ONETIME ONE Stop: 01/17/19 12:01 Last Admin: 01/17/19 13:39 Dose: 5 mg - Exam Quality Assessment: Reports: Supplemental Oxygen, DVT Prophylaxis General: Reports: Alert, Oriented, Cooperative, Mild Distress Lungs: Reports: Clear to Auscultation, Normal Respiratory Effort Cardiovascular: Reports: Regular Rate, Regular Rhythm, No Murmurs GI/Abdominal Exam: Soft, Non-Tender, No Organomegaly, No Distention Extremities: Other (Right ankle foot in a splint) *Q Meaningful Use (DIS) - VTE *Q VTE Pharmacological Contraindications *Q: Patient Scheduled Surgery
[2019-01-18] MEDS ORDERED: Warfarin 5 MG Tab PO SCH (13:00)
== END 2019-01-18 14:15 | DRG 493 ==
LOC: JP.ED 10:42 → JP.MS 12:10
PROVIDERS: ADMIT Hospitalist; ATTEND Hospitalist
PROC: 0QSLXZZ Reposition Right Tarsal, External Approach (ICD-10-PCS; principal; 2019-01-15)
PROC: 0QSJ04Z Reposition Right Fibula with Internal Fixation Device, Open Approach (ICD-10-PCS; 2019-01-16)
PROC: 0QSG04Z Reposition Right Tibia with Internal Fixation Device, Open Approach (ICD-10-PCS; 2019-01-16)
PROC: 0QSG04Z Reposition Right Tibia with Internal Fixation Device, Open Approach (ICD-10-PCS; 2019-01-16)
DX: S82.854A Nondisplaced trimalleolar fracture of right lower leg, initial encounter for closed fracture (principal); D68.9 Coagulation defect, unspecified; Z68.42 Body mass index [BMI] 45.0-49.9, adult; S93.04XA Dislocation of right ankle joint, initial encounter; M25.571 Pain in right ankle and joints of right foot; W00.0XXA Fall on same level due to ice and snow, initial encounter; Y92.9 Unspecified place or not applicable; I48.91 Unspecified atrial fibrillation; J45.909 Unspecified asthma, uncomplicated; Z79.01 Long term (current) use of anticoagulants; Z87.898 Personal history of other specified conditions; E78.00 Pure hypercholesterolemia, unspecified; G47.30 Sleep apnea, unspecified; F32.9 Major depressive disorder, single episode, unspecified; F41.9 Anxiety disorder, unspecified; H54.7 Unspecified visual loss; Z88.5 Allergy status to narcotic agent; Z79.899 Other long term (current) drug therapy; Z96.659 Presence of unspecified artificial knee joint; L29.9 Pruritus, unspecified; T40.2X5A Adverse effect of other opioids, initial encounter; Y92.230 Patient room in hospital as the place of occurrence of the external cause; E66.9 Obesity, unspecified
CPT/HCPCS: 28435; 36415; 73600 ×2; 80048; 85025; 85610; J2704; J3010; 51702; 76000; 93005; 94762; 97110-GP; 97162-GP; 97530-GP; 99285; A9270-GY; C1713; C1776; J0330; J0690; J1100; J1200; J1650; J2405; J3430; J3490; J7030; J7050

== ENCOUNTER 2021-02-09 19:08 | Observation (INO) | payer MEDICARE, OTHER ==
[2021-02-09] MEDS ORDERED: Sodium Chloride 0.9% 10 ML Syringe FLUSH PRN (19:48)
--- NOTE | 2021-02-09 19:58 | EDM.PDOC ---
ED HPI GENERAL MEDICAL PROBLEM - General Chief Complaint: Cardiovascular Problem Stated Complaint: CONSTANT SHAKING Time Seen by Provider: 02/09/21 19:31 Source of Information: Reports: Patient History Limitations: Reports: No Limitations - History of Present Illness INITIAL COMMENTS - FREE TEXT/NARRATIVE: Presents emergency room today secondary to concern about shaking episodes tremors that started around 1830 this evening she does state that she can felt lightheaded and dizzy all day she thought it was her new glasses describe it as spinning dizziness just feeling off patient also states that she has this warm flush that starts in her legs and goes up her back with a shaking episode is on chronic anticoagulation she states she does home INR checks last was on Monday a nd it was noted to be 2.0 PMH--sleep apnea with CPAP usage insomnia depression asthma hypothyroidism migraine headaches atrial fibs chronic pain obesity history of pancreatitis hypertension hyperlipidemia Meds--patient's were reviewed at the same time that nursing went through list noted for fish oil's Cardizem to 40 mg extended release in which she takes in the mornings Celexa Coumadin torsemide pravastatin potassium melatonin patient previously was on magnesium supplements but has since stopped those Tob--denies EtOH--occ Drug--CPD oil (for chronic pain) - Related Data Allergies Allergy/AdvReac Type Severity Reaction Status Date / Time adhesive tape Allergy Other Verified 09/18/19 08:37 doxycycline Allergy Other Verified 09/18/19 08:37 egg yolk Allergy Other Verified 09/18/19 08:37 levofloxacin [From Levaquin] Allergy Other Verified 09/18/19 08:37 oxycodone Allergy Other Verified 09/18/19 08:37 codeine AdvReac Hallucinati Verified 09/18/19 08:37 ons Home Meds: Home Meds ALPRAZolam [Alprazolam] 0.5 mg PO TID 11/24/15 [History] Citalopram Hydrobromide [Celexa] 40 mg PO BEDTIME 11/24/15 [History] Potassium Chloride [Klor-Con M20] 20 meq PO BID 11/24/15 [History] Pravastatin [Pravachol] 20 mg PO BEDTIME 11/24/15 [History] Fish Oil/[place]-3 Fatty Acids [Fish Oil 1,000 MG] 1 gm PO BID 10/17/16 [History] Albuterol Sulfate [Proair Hfa] 2 puff INH Q6H PRN 01/15/19 [History] Melatonin 10 mg PO BEDTIME 01/15/19 [History] Torsemide 20 mg PO .4XWEEKLY 01/15/19 [History] Warfarin Sodium 5 mg PO DAILY #0 01/18/19 [Rx] Calcium Carbonate/Vitamin D3 [Calcium 500 + Vit D Caplet] 1 tab PO DAILY 03/12/19 [History] Hydrocortisone [Anusol-HC] 1 applic RC BID 03/12/19 [History] Magnesium Citrate 100 mg PO DAILY 03/12/19 [History] Triamcinolone Acetonide 1 applic TOP BID 03/12/19 [History] Acetaminophen [Tylenol] 650 mg PO Q4H PRN 05/01/19 [History] Biotin 5,000 mcg PO DAILY 10/03/19 [History] Diltiazem HCl [Diltiazem 24Hr Cd] 240 mg PO DAILY 10/03/19 [History] Past Medical History HEENT History: Reports: Impaired Vision Cardiovascular History: Reports: Afib, High Cholesterol Respiratory History: Reports: Asthma, Sleep Apnea Gastrointestinal History: Reports: Pancreatitis Genitourinary History: Reports: None 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 Fell injurying L shoulder 01/28/20 Neurological History: Reports: Migraines Psychiatric History: Reports: Anxiety, Depression Endocrine/Metabolic History: Reports: Obesity/BMI 30+, Other (See Below) Other Endocrine/Metabolic History: Thyroid nodule bilat Hematologic History: Reports: None Immunologic History: Reports: None Oncologic (Cancer) History: Reports: None Dermatologic History: Reports: None - Infectious Disease History Infectious Disease History: Reports: Chicken Pox, Measles, Mumps - Past Surgical History Head Surgeries/Procedures: Reports: None HEENT Surgical History: Reports: Tonsillectomy Cardiovascular Surgical History: Reports: None GI Surgical History: Reports: None Endocrine Surgical History: Reports: None Musculoskeletal Surgical History: Reports: Joint Replacement, ORIF, Shoulder Replacement, Shoulder Surgery Other Musculoskeletal Surgeries/Procedures:: LT reverse total shoulder 09/18/19 Social & Family History - Family History Family Medical History: Unobtainable Cardiac: Reports: Heart Failure Respiratory: Reports: Asthma Endocrine/Metabolic: Reports: Diabetes, type II - Tobacco Use Tobacco Use Status *Q: Never Tobacco User - Caffeine Use Caffeine Use: Reports: Coffee Other Caffeine Use: 1 cup per day - Recreational Drug Use Recreational Drug Use: Yes Recreational Drug Type: Reports: Other (see below) Other Recreational Drug Type: cbd oil for about three weeks - Living Situation & Occupation Living situation: Reports: Single, with Family ED ROS GENERAL - Review of Systems Review Of Systems: See Below Constitutional: Reports: Other (flushed sensation when she has a tremor episode) HEENT: Reports: No Symptoms Respiratory: Reports: No Symptoms. Denies: Shortness of Breath Cardiovascular: Reports: Lightheadedness, Palpitations. Denies: Chest Pain, Dyspnea on Exertion, Syncope Endocrine: Reports: No Symptoms GI/Abdominal: Reports: No Symptoms : Reports: No Symptoms Musculoskeletal: Reports: No Symptoms Skin: Reports: No Symptoms Neurological: Reports: Dizziness, Tremors, Weakness. Denies: Confusion, Headache, Numbness, Paresthesia, Syncope, Tingling, Trouble Speaking, Difficulty Walking, Change in Speech, Gait Disturbance Psychiatric: Reports: No Symptoms Hematologic/Lymphatic: Reports: No Symptoms Immunologic: Reports: No Symptoms ED EXAM, GENERAL - Physical Exam Exam: See Below Exam Limited By: No Limitations General Appearance: Alert, WD/WN, No Apparent Distress, Obese (morbid obesity/extreme body habitus) Eye Exam: Bilateral Eye: EOMI, Normal Inspection, PERRL Ears: Normal External Exam Nose: Normal Inspection Throat/Mouth: Normal Inspection, Normal Lips, Normal Oropharynx, Normal Voice, No Airway Compromise Head: Atraumatic, Normocephalic Neck: Normal Inspection, Supple, Non-Tender, Full Range of Motion. No: Carotid Bruit Respiratory/Chest: No Respiratory Distress, Lungs Clear, Normal Breath Sounds, No Accessory Muscle Use Cardiovascular: Normal Peripheral Pulses, Irregularly Irregular (episodes of tachycardia/RVR with upright/ambulation--normal rate when in bed) Peripheral Pulses: 2+: Radial (L), Radial (R) GI/Abdominal: Normal Bowel Sounds, Soft, Non-Tender (Female) Exam: Deferred Rectal (Female) Exam: Deferred Extremities: Normal Inspection Neurological: Alert, Oriented, Normal Cognition, No Motor/Sensory Deficits Psychiatric: Normal Affect, Normal Mood Skin Exam: Warm, Dry, Intact, Normal Color #1 Interpretation EKG Date: 02/09/21 Time: 19:21 (read at 1928) Rhythm: A-Fib (mild RVR with rate 109) Rate (Beats/Min): 109 [place]: Normal P-Wave: Absent QRS: Other (low voltage; QRS-92) ST-T: Normal QT: Normal (QT/QTc-337/454) EKG Interpretation Comments: He is noted for mild RVR at time of reading at 192 of patient telemetry was noted to be 95-98 patient is asymptomatic at this time Course - Vital Signs Text/Narrative:: 1951--patient ambulatory to bathroom without assistance/difficulty, 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 Once in BR required assistance back to ER room due to feeling increasingly weak/shaky. Once back on telemetry noted for atrial fib, [id number]'s but immediatly settled out to 80's once in bed/flat. BP- 140/89, p/o-98% RA. patient feeling better once back in bed. d/w her that she is having breakthrough a-fib RVR with activity. likely will need extra-dose of her cardizem and monitoring through the night. labs/rad are pending for possible cause. patient and son verbalized understanding 2123--noted for cardiomegaly no opacity elevated right hemidiaphragm with underlying bowel gas pattern on preliminary reading otherwise no acute findings labs are reviewed noted for an INR of 1.88 which is slightly below her goal BUN/creatinine of 19/1.3 kidney mild dehydration lactic acid was elevated at 3.3 as well as CRP at 0.47 focal findings of infection more than acute inflammatory marker and this physician's opinion that an acute infection is mildly decreased at 1.7 patient did report that she was previously on neck supplement but is no longer urinalysis which was a clean-catch and noted to have many squamous ep ithelial ells thus felt to be contaminated noted for cloudy appearance small leuk esterase negative nitrite white blood cells 5-10 moderate bacteria will send to culture this time we will give a small fluid bolus and recommend for admission for overnight observation secondary to intolerance for any activity secondary to A. fib that goes into RVR pattern and son verbalized understanding agreement of plan of care 2147--call placed to Triny Tang NP Adult Education Professional for admission; case was discussed and she accepts for admission at this time Last Recorded V/S: Last Vital Signs Temp 96.6 F L 02/09/21 19:10 Pulse 76 02/09/21 21:42 Resp 13 02/09/21 21:42 BP 126/76 02/09/21 21:42 Pulse Ox 95 02/09/21 21:42 - Orders/Labs/Meds Orders: Active Orders 24 hr Category Date Time Status Cardiac Monitoring [RC] .As Directed Care 02/09/21 19:50 Active EKG Documentation Completion [RC] ASDIRECTED Care 02/09/21 19:49 Active Overnight Pulse Oximetry [RC] Click to Edit Care 02/09/21 19:51 Active Peripheral IV Care [RC] . DIRECTED Care 02/09/21 19:49 Active Chest 1V Frontal [CR] Stat Exams 02/09/21 19:58 Taken CULTURE URINE [RM] Stat Lab 02/09/21 21:30 Received Sodium Chloride 0.9% [Normal Saline] 500 ml Med 02/09/21 21:26 Active IV .BOLUS Sodium Chloride 0.9% [Saline Flush] Med 02/09/21 19:48 Active 10 ml FLUSH ASDIRECTED PRN Peripheral IV Insertion Adult [OM.PC] Urgent Oth 02/09/21 19:48 Ordered Pulse Oximetry Continuous Monitoring [OM.PC] Routine Oth 02/09/21 19:50 Ordered EKG 12 Lead [EK] Stat Ther 02/09/21 19:48 Ordered Medication Orders Sodium Chloride (Normal Saline) 500 mls @ 500 mls/hr IV .BOLUS ONE Stop: 02/09/21 22:25 Last Admin: 02/09/21 21:39 Dose: 500 mls/hr Documented by: MARISELA Sodium Chloride (Sodium Chloride 0.9% 10 Ml Syringe) 10 ml FLUSH ASDIRECTED PRN PRN Reason: Keep Vein Open Last Admin: 02/09/21 20:02 Dose: 10 ml Documented by: MARISELA Labs: Laboratory Tests 02/09/21 02/09/21 02/09/21 Range/Units 19:26 19:26 19:26 WBC (4.5-11.0) K/uL RBC (3.30-5.50) M/uL Hgb (12.0-15.0) g/dL Hct (36.0-48.0) % MCV (80-98) fL MCH (27-31) pg MCHC (32-36) % Plt Count (150-400) K/uL Neut % (Auto) (36-66) % Lymph % (Auto) (24-44) % [place] % (Auto) (2-6) % Eos % (Auto) (2-4) % Baso % (Auto) (0-1) % ESR (0-25) mm/hr PT 20.2 H (9.5-12.0) sec INR 1.88 H (0.80-1.20) Sodium 145 (140-148) mmol/L Potassium 3.8 (3.6-5.2) mmol/L Chloride 101 (100-108) mmol/L Carbon Dioxide 27 (21-32) mmol/L Anion Gap 17.3 H (5.0-14.0) mmol/L BUN 19 H (7-18) mg/dL Creatinine 1.3 H (0.6-1.0) mg/dL Est Cr Clr Drug Dosing 36.08 mL/min Estimated GFR (MDRD) 40 L (>60) Glucose 100 (74-106) mg/dL Lactic Acid 3.3 H (0.4-2.0) mmol/L Calcium 9.2 (8.5-10.1) mg/dL Magnesium 1.7 L (1.8-2.4) mg/dL Total Bilirubin 0.3 (0.2-1.0) mg/dL AST 21 (15-37) U/L ALT 19 (12-78) U/L Alkaline Phosphatase 108 (46-116) U/L C-Reactive Protein 0.47 H (0.0-0.3) mg/dL Total Protein 7.7 (6.4-8.2) g/dL Albumin 3.7 (3.4-5.0) g/dL Globulin 4.0 H (2.3-3.5) g/dL Albumin/Globulin Ratio 0.9 L (1.2-2.2) Urine Color (YELLOW) Urine Appearance (CLEAR) Urine pH (5.0-8.0) Ur Specific [place] (1.008-1.030) Urine Protein (NEGATIVE) mg/dL Urine Glucose (UA) (NEGATIVE) mg/dL Urine Ketones (NEGATIVE) mg/dL Urine Occult Blood (NEGATIVE) Urine Nitrite (NEGATIVE) Urine Bilirubin (NEGATIVE) Urine Urobilinogen (0.2-1.0) EU/dL Ur Leukocyte Esterase (NEGATIVE) Urine RBC (0-5) Urine WBC (0-5) Ur Epithelial Cells Amorphous Sediment Urine Bacteria Urine Mucus Urine Other 02/09/21 02/09/21 Range/Units 19:48 20:02 WBC 6.2 (4.5-11.0) K/uL RBC 4.62 (3.30-5.50) M/uL Hgb 13.7 D (12.0-15.0) g/dL Hct 42.3 (36.0-48.0) % MCV 92 (80-98) fL MCH 30 (27-31) pg MCHC 32 (32-36) % Plt Count 232 (150-400) K/uL Neut % (Auto) 54 (36-66) % Lymph % (Auto) 30 (24-44) % [place] % (Auto) 11 H (2-6) % Eos % (Auto) 5 H (2-4) % Baso % (Auto) 1 (0-1) % ESR 55 H (0-25) mm/hr PT (9.5-12.0) sec INR (0.80-1.20) Sodium (140-148) mmol/L Potassium (3.6-5.2) mmol/L Chloride (100-108) mmol/L Carbon Dioxide (21-32) mmol/L Anion Gap (5.0-14.0) mmol/L BUN (7-18) mg/dL Creatinine (0.6-1.0) mg/dL Est Cr Clr Drug Dosing mL/min Estimated GFR (MDRD) (>60) Glucose (74-106) mg/dL Lactic Acid (0.4-2.0) mmol/L Calcium (8.5-10.1) mg/dL Magnesium (1.8-2.4) mg/dL Total Bilirubin (0.2-1.0) mg/dL AST (15-37) U/L ALT (12-78) U/L Alkaline Phosphatase (46-116) U/L C-Reactive Protein (0.0-0.3) mg/dL Total Protein (6.4-8.2) g/dL Albumin (3.4-5.0) g/dL Globulin (2.3-3.5) g/dL Albumin/Globulin Ratio (1.2-2.2) Urine Color Yellow (YELLOW) Urine Appearance Slightly cloudy A (CLEAR) Urine pH 5.0 (5.0-8.0) Ur Specific [place] 1.015 (1.008-1.030) Urine Protein Negative (NEGATIVE) mg/dL Urine Glucose (UA) Negative (NEGATIVE) mg/dL Urine Ketones Negative (NEGATIVE) mg/dL Urine Occult Blood Trace-intact H (NEGATIVE) Urine Nitrite Negative (NEGATIVE) Urine Bilirubin Negative (NEGATIVE) Urine Urobilinogen 0.2 (0.2-1.0) EU/dL Ur Leukocyte Esterase Small H (NEGATIVE) Urine RBC 0-5 (0-5) Urine WBC 5-10 H (0-5) Ur Epithelial Cells Many Amorphous Sediment Occasional Urine Bacteria Moderate Urine Mucus Rare Urine Other Meds: Medications Generic Name Dose Route Start Last Admin Trade Name Freq PRN Reason Stop Dose Admin Sodium Chloride 500 mls @ 500 mls/hr 02/09/21 21:26 02/09/21 21:39 Normal Saline IV 02/09/21 22:25 500 mls/hr .BOLUS ONE Administration Sodium Chloride 10 ml 02/09/21 19:48 02/09/21 20:02 Sodium Chloride 0.9% 10 Ml Syringe FLUSH 10 ml ASDIRECTED PRN Administration Keep Vein Open - Radiology Interpretation Free Text/Narrative:: 2119--this film noted on preliminary reading for cardiomegaly elevated right hemidiaphragm with underlying bowel gas pattern otherwise no acute findings no opacity or infiltrate noted final radiology reading is pending at this time Departure - Departure Time of Disposition: 21:48 Disposition: Admitted As Inpatient 64 Condition: Good Clinical Impression: Paroxysmal atrial fibrillation with RVR, Mild dehydration, Hypomagnesemia, Chronic anticoagulation Referrals: PCP,None [Primary Care Provider] - Forms: ED Department Discharge Sepsis Event Note (ED) - Evaluation Sepsis Screening Result: No Definite Risk - Focused Exam Vital Signs: Vital Signs Temp Pulse Resp BP Pulse Ox 02/09/21 21:42 76 13 126/76 95 02/09/21 20:03 83 17 140/55 L 98 02/09/21 19:10 96.6 F L 107 H 25 H 137/72 97 - My Orders Last 24 Hours: My Active Orders 02/09/21 19:48 Sodium Chloride 0.9% [Saline Flush] 10 ml FLUSH ASDIRECTED PRN Peripheral IV Insertion Adult [OM.PC] Urgent EKG 12 Lead [EK] Stat 02/09/21 19:49 EKG Documentation Completion [RC] ASDIRECTED Peripheral IV Care [RC] . DIRECTED 02/09/21 19:50 Cardiac Monitoring [RC] .As Directed Pulse Oximetry Continuous Monitoring [OM.PC] Routine 02/09/21 19:51 Overnight Pulse Oximetry [RC] Click to Edit 02/09/21 19:58 Chest 1V Frontal [CR] Stat 02/09/21 21:26 Sodium Chloride 0.9% [Normal Saline] 500 ml IV .BOLUS 02/09/21 21:30 CULTURE URINE [RM] Stat - Assessment/Plan Last 24 Hours: My Active Orders 02/09/21 19:48 Sodium Chloride 0.9% [Saline Flush] 10 ml FLUSH ASDIRECTED PRN Peripheral IV Insertion Adult [OM.PC] Urgent EKG 12 Lead [EK] Stat 02/09/21 19:49 EKG Documentation Completion [RC] ASDIRECTED Peripheral IV Care [RC] . DIRECTED 02/09/21 19:50 Cardiac Monitoring [RC] .As Directed Pulse Oximetry Continuous Monitoring [OM.PC] Routine 02/09/21 19:51 Overnight Pulse Oximetry [RC] Click to Edit 02/09/21 19:58 Chest 1V Frontal [CR] Stat 02/09/21 21:26 Sodium Chloride 0.9% [Normal Saline] 500 ml IV .BOLUS 02/09/21 21:30 CULTURE URINE [RM] Stat
[2021-02-09] MEDS ORDERED: Sodium Chloride 0.9% 500 ML IV ONE (21:26)
--- NOTE | 2021-02-10 00:47 | PCM.HP.2 ---
H&P History of Present Illness - General Date of Service: 02/09/21 Admit Problem/Dx: Admission Diagnosis/Problem Admission Diagnosis/Problem Vertigo Source of Information: Patient, Provider, RN History Limitations: Reports: No Limitations - History of Present Illness Initial Comments - Free Text/Narative: chief complaint: dizziness. This is a 71 year old female present to the ER for evaluation of dizziness. She reports a sudden onset of dizziness and uncontrollable shaking. She felt light headed without syncope, full body flushing- felt like a heat wave from feet to c hest and extends to the arms and head. [place] like her heart was beating faster than samia. denies chest pain or shortness of breath. Onset of Symptoms: Reports: Sudden Symptom Onset Date: 02/09/21 Symptom Onset Time: 18:15 Duration of Symptoms: Reports: Hour(s):, Other (experience a brief episode of Afib with RVR in ER, resolved without any medical intervention) Location: Reports: Generalized Quality: Reports: Other (reports no pain or chest pain. has muscle pain and fatigue from shaking. ) Improves with: Reports: Rest Worsens with: Reports: Movement Associated Symptoms: Reports: Weakness - Related Data Allergies/Adverse Reactions: Allergies Allergy/AdvReac Type Severity Reaction Status Date / Time adhesive tape Allergy Other Verified 09/18/19 08:37 doxycycline Allergy Other Verified 09/18/19 08:37 egg yolk Allergy Other Verified 09/18/19 08:37 levofloxacin [From Levaquin] Allergy Other Verified 09/18/19 08:37 oxycodone Allergy Other Verified 09/18/19 08:37 codeine AdvReac Hallucinati Verified 09/18/19 08:37 ons Home Medications: Home Meds ALPRAZolam [Alprazolam] 0.5 mg PO TID 11/24/15 [History] Citalopram Hydrobromide [Celexa] 40 mg PO BEDTIME 11/24/15 [History] Potassium Chloride [Klor-Con M20] 20 meq PO BID 11/24/15 [History] Pravastatin [Pravachol] 20 mg PO BEDTIME 11/24/15 [History] Fish Oil/[place]-3 Fatty Acids [Fish Oil 1,000 MG] 1 gm PO BID 10/17/16 [History] Albuterol Sulfate [Proair Hfa] 2 puff INH Q6H PRN 01/15/19 [History] Melatonin 10 mg PO BEDTIME 01/15/19 [History] Torsemide 20 mg PO .4XWEEKLY 01/15/19 [History] Warfarin Sodium 5 mg PO DAILY #0 01/18/19 [Rx] Calcium Carbonate/Vitamin D3 [Calcium 500 + Vit D Caplet] 1 tab PO DAILY [History] Hydrocortisone [Anusol-HC] 1 applic RC BID 03/12/19 [History] Magnesium Citrate 100 mg PO DAILY 03/12/19 [History] Triamcinolone Acetonide 1 applic TOP BID 03/12/19 [History] Acetaminophen [Tylenol] 650 mg PO Q4H PRN 05/01/19 [History] Biotin 5,000 mcg PO DAILY 10/03/19 [History] Diltiazem HCl [Diltiazem 24Hr Cd] 240 mg PO DAILY 10/03/19 [History] Past Medical History HEENT History: Reports: Impaired Vision Cardiovascular History: Reports: Afib, High Cholesterol Respiratory History: Reports: Asthma, Sleep Apnea Gastrointestinal History: Reports: Pancreatitis Genitourinary History: Reports: None [employer] History: Reports: Musculoskeletal History: Reports: Fracture Other Musculoskeletal History: s/p ORIF R ankle 01/16/19. 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 Fell injurying L shoulder 01/28/20 Neurological History: Reports: Migraines Psychiatric History: Reports: Anxiety, Depression Endocrine/Metabolic History: Reports: Obesity/BMI 30+, Other (See Below) Other Endocrine/Metabolic History: Thyroid nodule bilat Hematologic History: Reports: None Immunologic History: Reports: None Oncologic (Cancer) History: Reports: None Dermatologic History: Reports: None - Infectious Disease History Infectious Disease History: Reports: Chicken Pox, Measles, Mumps - Past Surgical History Head Surgeries/Procedures: Reports: None HEENT Surgical History: Reports: Tonsillectomy Cardiovascular Surgical History: Reports: None GI Surgical History: Reports: None Endocrine Surgical History: Reports: None Musculoskeletal Surgical History: Reports: Joint Replacement, ORIF, Shoulder Replacement, Shoulder Surgery Other Musculoskeletal Surgeries/Procedures:: LT reverse total shoulder 09/18/19 Social & Family History - Family History Family Medical History: Unobtainable Cardiac: Reports: Heart Failure Respiratory: Reports: Asthma Endocrine/Metabolic: Reports: Diabetes, type II - Tobacco Use Tobacco Use Status *Q: Never Tobacco User - Caffeine Use Caffeine Use: Reports: Coffee Other Caffeine Use: 1 cup per day - Recreational Drug Use Recreational Drug Use: Yes Recreational Drug Type: Reports: Other (see below) Other Recreational Drug Type: cbd oil for about three weeks - Living Situation & Occupation Living situation: Reports: Single, with Family H&P Review of Systems - Review of Systems: Review Of Systems: See Below General: Reports: Other (reports feeling better, denies chest, shortness of breath. still with dizzines when getting out of bed.) HEENT: Reports: Glasses, Other (natural teeth) Pulmonary: Reports: No Symptoms Cardiovascular: Reports: No Symptoms, Other (A-Fib for 30 years.) Gastrointestinal: Reports: No Symptoms Genitourinary: Reports: No Symptoms Musculoskeletal: Reports: Muscle Pain, Muscle Stiffness Skin: Reports: Bruising (left hand from dog bite 3 weeks ago) Psychiatric: Reports: Anxiety (chronic) Neurological: Reports: Dizziness (new onset. past history of similar sympotms ), Tremors Hematologic/Lymphatic: Reports: Easy Bleeding (coumadin therapy for chronic Afib) Immunologic: Reports: No Symptoms Exam - Exam Exam: See Below - Vital Signs Vital Signs: Last Vital Signs Temp 96.6 F L 02/09/21 19:10 Pulse 76 02/09/21 21:42 Resp 13 02/09/21 21:42 BP 126/76 02/09/21 21:42 Pulse Ox 95 02/09/21 21:42 Weight: 300 lb - Exam Quality Assessment: DVT Prophylaxis, Skin Breakdown General: Alert, Oriented, Cooperative HEENT: PERRLA, Hearing Intact, Mucosa Moist & [place], Nares Patent, Normal Nasal Septum, Posterior Pharynx Clear, Conjunctiva Clear, EOMI, EACs Clear, TMs Clear Neck: Supple, Trachea Midline, 2 Lungs: Clear to Auscultation, Normal Respiratory Effort Cardiovascular: Regular Rate (heart rate 70's), Irregular Rhythm GI/Abdominal Exam: Normal Bowel Sounds (Female) Exam: Deferred Rectal (Female) Exam: Deferred Back Exam: Normal Inspection, Full Range of Motion, NT Extremities: Normal Inspection, Normal Range of Motion, Non-Tender, No Pedal Edema, Normal Capillary Refill, Other (no tremors or shakes noted on exam) Skin: Other (left hand with dark bruising, no signs of infection from dog bite 3 weeks. ) Neurological: Strength Equal Bilateral Neuro Extensive - Mental Status: Alert, Oriented x3, Normal Mood/Affect, Normal Cognition Neuro Extensive - Motor, Sensory, Reflexes: CN II-XII Intact, Normal Gait, Normal Reflexes Psychiatric: Alert, Normal Affect, Normal Mood - Patient Data Lab Results Last 24 hrs: Laboratory Results - last 24 hr 02/09/21 02/09/21 02/09/21 Range/Units 19:26 19:26 19:26 WBC (4.5-11.0) K/uL RBC (3.30-5.50) M/uL Hgb (12.0-15.0) g/dL Hct (36.0-48.0) % MCV (80-98) fL MCH (27-31) pg MCHC (32-36) % Plt Count (150-400) K/uL Neut % (Auto) (36-66) % Lymph % (Auto) (24-44) % [place] % (Auto) (2-6) % Eos % (Auto) (2-4) % Baso % (Auto) (0-1) % ESR (0-25) mm/hr PT 20.2 H (9.5-12.0) sec INR 1.88 H (0.80-1.20) Sodium 145 (140-148) mmol/L Potassium 3.8 (3.6-5.2) mmol/L Chloride 101 (100-108) mmol/L Carbon Dioxide 27 (21-32) mmol/L Anion Gap 17.3 H (5.0-14.0) mmol/L BUN 19 H (7-18) mg/dL Creatinine 1.3 H (0.6-1.0) mg/dL Est Cr Clr Drug Dosing 36.08 mL/min Estimated GFR (MDRD) 40 L (>60) Glucose 100 (74-106) mg/dL Lactic Acid 3.3 H (0.4-2.0) mmol/L Calcium 9.2 (8.5-10.1) mg/dL Magnesium 1.7 L (1.8-2.4) mg/dL Total Bilirubin 0.3 (0.2-1.0) mg/dL AST 21 (15-37) U/L ALT 19 (12-78) U/L Alkaline Phosphatase 108 (46-116) U/L C-Reactive Protein 0.47 H (0.0-0.3) mg/dL Total Protein 7.7 (6.4-8.2) g/dL Albumin 3.7 (3.4-5.0) g/dL Globulin 4.0 H (2.3-3.5) g/dL Albumin/Globulin Ratio 0.9 L (1.2-2.2) Urine Color (YELLOW) Urine Appearance (CLEAR) Urine pH (5.0-8.0) Ur Specific [place] (1.008-1.030) Urine Protein (NEGATIVE) mg/dL Urine Glucose (UA) (NEGATIVE) mg/dL Urine Ketones (NEGATIVE) mg/dL Urine Occult Blood (NEGATIVE) Urine Nitrite (NEGATIVE) Urine Bilirubin (NEGATIVE) Urine Urobilinogen (0.2-1.0) EU/dL Ur Leukocyte Esterase (NEGATIVE) Urine RBC (0-5) Urine WBC (0-5) Ur Epithelial Cells Amorphous Sediment Urine Bacteria Urine Mucus Urine Other 02/09/21 02/09/21 Range/Units 19:48 20:02 WBC 6.2 (4.5-11.0) K/uL RBC 4.62 (3.30-5.50) M/uL Hgb 13.7 D (12.0-15.0) g/dL Hct 42.3 (36.0-48.0) % MCV 92 (80-98) fL MCH 30 (27-31) pg MCHC 32 (32-36) % Plt Count 232 (150-400) K/uL Neut % (Auto) 54 (36-66) % Lymph % (Auto) 30 (24-44) % [place] % (Auto) 11 H (2-6) % Eos % (Auto) 5 H (2-4) % Baso % (Auto) 1 (0-1) % ESR 55 H (0-25) mm/hr PT (9.5-12.0) sec INR (0.80-1.20) Sodium (140-148) mmol/L Potassium (3.6-5.2) mmol/L Chloride (100-108) mmol/L Carbon Dioxide (21-32) mmol/L Anion Gap (5.0-14.0) mmol/L BUN (7-18) mg/dL Creatinine (0.6-1.0) mg/dL Est Cr Clr Drug Dosing mL/min Estimated GFR (MDRD) (>60) Glucose (74-106) mg/dL Lactic Acid (0.4-2.0) mmol/L Calcium (8.5-10.1) mg/dL Magnesium (1.8-2.4) mg/dL Total Bilirubin (0.2-1.0) mg/dL AST (15-37) U/L ALT (12-78) U/L Alkaline Phosphatase (46-116) U/L C-Reactive Protein (0.0-0.3) mg/dL Total Protein (6.4-8.2) g/dL Albumin (3.4-5.0) g/dL Globulin (2.3-3.5) g/dL Albumin/Globulin Ratio (1.2-2.2) Urine Color Yellow (YELLOW) Urine Appearance Slightly cloudy A (CLEAR) Urine pH 5.0 (5.0-8.0) Ur Specific [place] 1.015 (1.008-1.030) Urine Protein Negative (NEGATIVE) mg/dL Urine Glucose (UA) Negative (NEGATIVE) mg/dL Urine Ketones Negative (NEGATIVE) mg/dL Urine Occult Blood Trace-intact H (NEGATIVE) Urine Nitrite Negative (NEGATIVE) Urine Bilirubin Negative (NEGATIVE) Urine Urobilinogen 0.2 (0.2-1.0) EU/dL Ur Leukocyte Esterase Small H (NEGATIVE) Urine RBC 0-5 (0-5) Urine WBC 5-10 H (0-5) Ur Epithelial Cells Many Amorphous Sediment Occasional Urine Bacteria Moderate Urine Mucus Rare Urine Other Result Diagrams: 02/09/21 19:48 02/09/21 19:26 Sepsis Event Note - Evaluation Sepsis Screening Result: No Definite Risk - Focused Exam Vital Signs: Vital Signs Temp Pulse Resp BP Pulse Ox 02/09/21 21:42 76 13 126/76 95 02/09/21 20:03 83 17 140/55 L 98 02/09/21 19:10 96.6 F L 107 H 25 H 137/72 97 - Problem List (1) Vertigo SNOMED Code(s): 627772384 ICD Code: R42 - DIZZINESS AND GIDDINESS Status: Acute Priority: High Current Visit: Yes (2) Hypomagnesemia SNOMED Code(s): 128658272 ICD Code: E83.42 - HYPOMAGNESEMIA Status: Acute Current Visit: Yes (3) Chronic anticoagulation SNOMED Code(s): 377916600 ICD Code: Z79.01 - FPC (CURRENT) USE OF ANTICOAGULANTS Status: Acute Current Visit: Yes (4) Atrial fibrillation SNOMED Code(s): 68549968 ICD Code: I48.91 - UNSPECIFIED ATRIAL FIBRILLATION Status: Chronic Current Visit: No Qualifiers: Atrial fibrillation type: longstanding persistent Qualified Code(s): I48.11 - Longstanding persistent atrial fibrillation (5) UTI (urinary tract infection) SNOMED Code(s): 98013569 ICD Code: N39.0 - URINARY TRACT INFECTION, SITE NOT SPECIFIED Status: Acute Current Visit: Yes Qualifiers: Urinary tract infection type: site unspecified Hematuria presence: without hematuria Qualified Code(s): N39.0 - Urinary tract infection, site not speci fied Problem List Initiated/Reviewed/Updated: Yes Orders Last 24hrs: Active Orders 24 hr Category Date Time Status Patient Status Manage Transfer [TRANSFER] Routine ADT 02/09/21 23:10 Active Cardiac Monitoring [RC] .As Directed Care 02/09/21 19:50 Active EKG Documentation Completion [RC] ASDIRECTED Care 02/09/21 19:49 Active Overnight Pulse Oximetry [RC] Click to Edit Care 02/09/21 19:51 Active Peripheral IV Care [RC] . DIRECTED Care 02/09/21 19:49 Active Chest 1V Frontal [CR] Stat Exams 02/09/21 19:58 Taken CULTURE URINE [RM] Stat Lab 02/09/21 21:30 Received Sodium Chloride 0.9% [Saline Flush] Med 02/09/21 19:48 Active 10 ml FLUSH ASDIRECTED PRN Peripheral IV Insertion Adult [OM.PC] Urgent Oth 02/09/21 19:48 Ordered Pulse Oximetry Continuous Monitoring [OM.PC] Routine Oth 02/09/21 19:50 Ordered Resuscitation Status Routine Resus Stat 02/09/21 23:41 Ordered EKG 12 Lead [EK] Stat Ther 02/09/21 19:48 Ordered Medication Orders Sodium Chloride (Sodium Chloride 0.9% 10 Ml Syringe) 10 ml FLUSH ASDIRECTED PRN PRN Reason: Keep Vein Open Last Admin: 02/09/21 20:02 Dose: 10 ml Documented by: MARISELA Assessment/Plan Comment:: Assessment/Plan Comment:: VERTIGO ASSESSMENT AND PLAN Vertigo- sudden onset at 1815 today. reports had a similar episode and had chiropractor treatments and resolved on its own. At time of admission continue to have vertigo upon standing otherwise resolves with laying down. -IV Normal Saline 125 ml/hr -Anti nausea medication -pain medication -telemetry -up with assistance. falls risk -repeat labs in am - CBC, BMP Atrial Fib chronic for 30 years. Has Coumadin 5mg daily. While in the ER has a brief episode of RVR, which resolved without intervention -telemetry -Coumadin 5 mg daily -continue outpatient medication Hypomagnesium. -Magnesium 400mg one time dose -continue Magnesium 100mg po bid Urinary Tract Infection -IV Rocephin 1 gram every 24 hours -urine culture pending MAINTENANCE ISSUES -DVT prophylaxis- Coumadin daily. -GI prophylaxis - PPI 40mg daily -Phillips catheter- not indicated -Nutrition - 2 gram Sodium -Nicotine dependence; not required CODE STATUS-DNR/DNI ADMISSION STATUS-this patient will be admitted to observation status, expect no more than a one night hospital stay for evaluation and management of problems as outlined above. DISPOSITION-anticipate discharge to home after the hospital stay. 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 Phipps HOSPITALIST Dr. Miller - Mortality Measure Prognosis:: Good - Mortality Measure Prognosis:: Good
[2021-02-10] MEDS ORDERED: Sodium Chloride 0.9% 1,000 ML IV SCH (01:03)
[2021-02-10] MEDS ORDERED: Ondansetron 4 MG/2 ML SDV IV PRN (01:03)
[2021-02-10] MEDS ORDERED: cefTRIAXone 1 GM in Sodium Chloride 0.9% 50 ML IV SCH (01:03)
[2021-02-10] MEDS ORDERED: Acetaminophen 325 MG Tab PO PRN (01:03)
[2021-02-10] MEDS ORDERED: Albuterol 0.083% 2.5 MG/3 ML Neb Soln NEB PRN (01:03)
[2021-02-10] MEDS ORDERED: Morphine 2 MG/ML SYRINGE IVPUSH PRN (01:03)
[2021-02-10] MEDS ORDERED: Albuterol/Ipratropium 3.0-0.5 MG/3 ML Neb Soln NEB PRN (01:03)
[2021-02-10] MEDS ORDERED: Bisacodyl 5 MG Tab PO PRN (01:03)
[2021-02-10] MEDS ORDERED: Ondansetron 4 MG Tab.DIS PO PRN (01:03)
[2021-02-10] MEDS ORDERED: Magnesium Oxide 400 MG Tab PO ONE (01:03)
[2021-02-10] MEDS ORDERED: Pantoprazole 40 MG Vial IV ONE (01:03)
[2021-02-10] MEDS ORDERED: Docusate Sodium 100 MG Cap PO PRN (01:03)
[2021-02-10] MEDS: ALPRAZolam 0.5 MG Tab PO SCH ×3 (01:37→13:26)
[2021-02-10] MEDS ORDERED: Warfarin 5 MG Tab PO SCH (09:00)
[2021-02-10] MEDS ORDERED: Magnesium Oxide 400 MG Tab PO SCH (09:00)
[2021-02-10] MEDS ORDERED: Potassium Chloride 20 MEQ Tab.ER PO SCH (09:00)
[2021-02-10] MEDS ORDERED: MAGNESIUM CITRATE 100 MG PO SCH (09:00)
[2021-02-10] MEDS ORDERED: Diltiazem 120 MG Cap.CD PO SCH (09:00)
[2021-02-10] MEDS ORDERED: Triamcinolone Acetonide 0.1% Crm 15 GM Tube TOP SCH ×2 (09:00)
[2021-02-10] MEDS ORDERED: Torsemide 20 MG Tab PO SCH (09:10)
--- NOTE | 2021-02-10 09:11 | CR ---
CHEST: Portable 02/09/2021 at 8:15 PM CLINICAL HISTORY:Weakness COMPARISON:2012 FINDINGS: The heart size, pulmonary vascularity and hilar structures are normal. No infiltrate effusion or pneumothorax is seen. There is interposed bowel under the right hemidiaphragm IMPRESSION: No acute cardiopulmonary process
[2021-02-10 11:05] VITALS: BP 104/56; PULSE 63
--- NOTE | 2021-02-10 12:40 | PCM.DCSUM1 ---
Discharge Summary - Hospital Course Brief History: Ms. Mendiola is a 71-year-old woman who was admitted through the emergency department with weakness, dizziness, and shakiness, secondary to vertigo and underlying urinary tract infection. - Discharge Data Discharge Date: 02/10/21 Discharge Disposition: Home, Self-Care 01 Condition: Stable - Referral to Home Health Primary Care Physician: Gary Phipps MD - Discharge Diagnosis/Problem(s) (1) Paroxysmal atrial fibrillation with RVR SNOMED Code(s): 9318865024 ICD Code: I48.0 - PAROXYSMAL ATRIAL FIBRILLATION Status: Acute Current Visit: Yes (2) Hypomagnesemia SNOMED Code(s): 633190302 ICD Code: E83.42 - HYPOMAGNESEMIA Status: Acute Current Visit: Yes (3) Vertigo SNOMED Code(s): 874866168 ICD Code: R42 - DIZZINESS AND GIDDINESS Status: Acute Priority: High Current Visit: Yes (4) UTI (urinary tract infection) SNOMED Code(s): 53842608 ICD Code: N39.0 - URINARY TRACT INFECTION, SITE NOT SPECIFIED Status: Acute Current Visit: Yes Qualifiers: Urinary tract infection type: site unspecified Hematuria presence: without hematuria Qualified Code(s): N39.0 - Urinary tract infection, site not specified - Patient Summary/Data Hospital Course: This is a 71 year old female present to the ER for evaluation of dizziness. She reports a sudden onset of dizziness and uncontrollable shaking. She felt light headed without syncope, full body flushing- felt like a heat wave from feet to chest and extends to the arms and head. [place] like her heart was beating faster than normal. Denies chest pain or shortness of breath. Department symptoms were felt to be consistent with vertigo. She also had a brief episode of atrial fibrillation rapid ventricular response that resolved spontaneously after a few minutes. Urinalysis showed evidence of underlying urinary tract infection culture was obtained and she was started on antibiotic therapy with ceftriaxone. Magnesium level was noted to be low and she did receive magnesium replacement in the emergency department and while in the hospital. She was given IV fluids for hydration. By the following morning she felt significantly improved, symptoms including vertigo had resolved. She will be discharged home with follow-up appointment with her primary care provider within 1 week. Activity will be as tolerated and she will resume her usual diet. She will be discharged home with 4 days of antibiotic therapy for urinary tract infection with cephalexin 500 mg 3 times daily. - Patient Instructions Diet: Usual Diet as Tolerated Activity: As Tolerated - Discharge Plan *PRESCRIPTION DRUG MONITORING PROGRAM REVIEWED*: Not Applicable *COPY OF PRESCRIPTION DRUG MONITORING REPORT IN PATIENT MATTEO: Not Applicable Prescriptions/Med Rec: cephALEXin [Cephalexin] 500 mg PO TID #12 tablet Home Medications: Home Meds ALPRAZolam [Alprazolam] 0.5 mg PO TID 11/24/15 [History] Citalopram Hydrobromide [Celexa] 40 mg PO BEDTIME 11/24/15 [History] Potassium Chloride [Klor-Con M20] 20 meq PO BID 11/24/15 [History] Pravastatin [Pravachol] 20 mg PO BEDTIME 11/24/15 [History] Fish Oil/[place]-3 Fatty Acids [Fish Oil 1,000 MG] 1 gm PO BID 10/17/16 [History] Albuterol Sulfate [Proair Hfa] 2 puff INH Q6H PRN 01/15/19 [History] Melatonin 10 mg PO BEDTIME 01/15/19 [History] Torsemide 20 mg PO .4XWEEKLY 01/15/19 [History] Warfarin Sodium 5 mg PO DAILY #0 01/18/19 [Rx] Calcium Carbonate/Vitamin D3 [Calcium 500-Vit D3 125 Caplet] 1 tab PO DAILY 03/12/19 [History] Hydrocortisone [Anusol-HC] 1 applic RC BID 03/12/19 [History] Magnesium Citrate 100 mg PO DAILY 03/12/19 [History] Triamcinolone Acetonide 1 applic TOP BID 03/12/19 [History] Acetaminophen [Tylenol] 650 mg PO Q4H PRN 05/01/19 [History] Biotin 5,000 mcg PO DAILY 10/03/19 [History] Diltiazem HCl [Diltiazem 24Hr Cd] 240 mg PO DAILY 10/03/19 [History] cephALEXin [Cephalexin] 500 mg PO TID #12 tablet 02/10/21 [Rx] Patient Handouts: Vertigo, [id number], Urinary Tract Infection, Adult Referrals: Gary Phipps MD [Primary Care Provider] - 02/16/21 1:30 pm (Plase arrive 15 minutes early to register for your appointment.) - Discharge Summary/Plan Comment DC Time >30 min.: No - Patient Data Vitals - Most Recent: Last Vital Signs Temp 97.1 F 02/10/21 11:00 Pulse 63 02/10/21 11:00 Resp 18 02/10/21 11:00 BP 104/56 L 02/10/21 11:00 Pulse Ox 97 02/10/21 11:00 Weight - Most Recent: 302 lb 12.808 oz I&O - Last 24 hours: Intake & Output 02/09/21 02/10/21 02/10/21 22:59 06:59 14:59 Intake Total 482 600 Output Total 150 1400 Balance 332 -800 Lab Results - Last 24 hrs: Laboratory Results - last 24 hr 02/09/21 02/09/21 02/09/21 Range/Units 19:26 19:26 19:26 WBC (4.5-11.0) K/uL RBC (3.30-5.50) M/uL Hgb (12.0-15.0) g/dL Hct (36.0-48.0) % MCV (80-98) fL MCH (27-31) pg MCHC (32-36) % Plt Count (150-400) K/uL Neut % (Auto) (36-66) % Lymph % (Auto) (24-44) % [place] % (Auto) (2-6) % Eos % (Auto) (2-4) % Baso % (Auto) (0-1) % ESR (0-25) mm/hr PT 20.2 H (9.5-12.0) sec INR 1.88 H (0.80-1.20) Sodium 145 (140-148) mmol/L Potassium 3.8 (3.6-5.2) mmol/L Chloride 101 (100-108) mmol/L Carbon Dioxide 27 (21-32) mmol/L Anion Gap 17.3 H (5.0-14.0) mmol/L BUN 19 H (7-18) mg/dL Creatinine 1.3 H (0.6-1.0) mg/dL Est Cr Clr Drug Dosing 36.08 mL/min Estimated GFR (MDRD) 40 L (>60) Glucose 100 (74-106) mg/dL Lactic Acid 3.3 H (0.4-2.0) mmol/L Calcium 9.2 (8.5-10.1) mg/dL Magnesium 1.7 L (1.8-2.4) mg/dL Total Bilirubin 0.3 (0.2-1.0) mg/dL AST 21 (15-37) U/L ALT 19 (12-78) U/L Alkaline Phosphatase 108 (46-116) U/L C-Reactive Protein 0.47 H (0.0-0.3) mg/dL Total Protein 7.7 (6.4-8.2) g/dL Albumin 3.7 (3.4-5.0) g/dL Globulin 4.0 H (2.3-3.5) g/dL Albumin/Globulin Ratio 0.9 L (1.2-2.2) Urine Color (YELLOW) Urine Appearance (CLEAR) Urine pH (5.0-8.0) Ur Specific [place] (1.008-1.030) Urine Protein (NEGATIVE) mg/dL Urine Glucose (UA) (NEGATIVE) mg/dL Urine Ketones (NEGATIVE) mg/dL Urine Occult Blood (NEGATIVE) Urine Nitrite (NEGATIVE) Urine Bilirubin (NEGATIVE) Urine Urobilinogen (0.2-1.0) EU/dL Ur Leukocyte Esterase (NEGATIVE) Urine RBC (0-5) Urine WBC (0-5) Ur Epithelial Cells Amorphous Sediment Urine Bacteria Urine Mucus Urine Other 02/09/21 02/09/21 02/10/21 Range/Units 19:48 20:02 05:51 WBC 6.2 5.1 (4.5-11.0) K/uL RBC 4.62 4.12 (3.30-5.50) M/uL Hgb 13.7 D 12.0 (12.0-15.0) g/dL Hct 42.3 37.8 (36.0-48.0) % MCV 92 92 (80-98) fL MCH 30 29 (27-31) pg MCHC 32 32 (32-36) % Plt Count 232 219 (150-400) K/uL Neut % (Auto) 54 60 (36-66) % Lymph % (Auto) 30 25 (24-44) % [place] % (Auto) 11 H 10 H (2-6) % Eos % (Auto) 5 H 5 H (2-4) % Baso % (Auto) 1 1 (0-1) % ESR 55 H (0-25) mm/hr PT (9.5-12.0) sec INR (0.80-1.20) Sodium (140-148) mmol/L Potassium (3.6-5.2) mmol/L Chloride (100-108) mmol/L Carbon Dioxide (21-32) mmol/L Anion Gap (5.0-14.0) mmol/L BUN (7-18) mg/dL Creatinine (0.6-1.0) mg/dL Est Cr Clr Drug Dosing mL/min Estimated GFR (MDRD) (>60) Glucose (74-106) mg/dL Lactic Acid (0.4-2.0) mmol/L Calcium (8.5-10.1) mg/dL Magnesium (1.8-2.4) mg/dL Total Bilirubin (0.2-1.0) mg/dL AST (15-37) U/L ALT (12-78) U/L Alkaline Phosphatase (46-116) U/L C-Reactive Protein (0.0-0.3) mg/dL Total Protein (6.4-8.2) g/dL Albumin (3.4-5.0) g/dL Globulin (2.3-3.5) g/dL Albumin/Globulin Ratio (1.2-2.2) Urine Color Yellow (YELLOW) Urine Appearance Slightly cloudy A (CLEAR) Urine pH 5.0 (5.0-8.0) Ur Specific [place] 1.015 (1.008-1.030) Urine Protein Negative (NEGATIVE) mg/dL Urine Glucose (UA) Negative (NEGATIVE) mg/dL Urine Ketones Negative (NEGATIVE) mg/dL Urine Occult Blood Trace-intact H (NEGATIVE) Urine Nitrite Negative (NEGATIVE) Urine Bilirubin Negative (NEGATIVE) Urine Urobilinogen 0.2 (0.2-1.0) EU/dL Ur Leukocyte Esterase Small H (NEGATIVE) Urine RBC 0-5 (0-5) Urine WBC 5-10 H (0-5) Ur Epithelial Cells Many Amorphous Sediment Occasional Urine Bacteria Moderate Urine Mucus Rare Urine Other 02/10/21 Range/Units 05:51 WBC (4.5-11.0) K/uL RBC (3.30-5.50) M/uL Hgb (12.0-15.0) g/dL Hct (36.0-48.0) % MCV (80-98) fL MCH (27-31) pg MCHC (32-36) % Plt Count (150-400) K/uL Neut % (Auto) (36-66) % Lymph % (Auto) (24-44) % [place] % (Auto) (2-6) % Eos % (Auto) (2-4) % Baso % (Auto) (0-1) % ESR (0-25) mm/hr PT (9.5-12.0) sec INR (0.80-1.20) Sodium 146 (140-148) mmol/L Potassium 4.2 (3.6-5.2) mmol/L Chloride 106 (100-108) mmol/L Carbon Dioxide 30 (21-32) mmol/L Anion Gap 10.5 (5.0-14.0) mmol/L BUN 18 (7-18) mg/dL Creatinine 0.9 (0.6-1.0) mg/dL Est Cr Clr Drug Dosing 52.12 mL/min Estimated GFR (MDRD) > 60 (>60) Glucose 88 (74-106) mg/dL Lactic Acid (0.4-2.0) mmol/L Calcium 9.1 (8.5-10.1) mg/dL Magnesium (1.8-2.4) mg/dL Total Bilirubin (0.2-1.0) mg/dL AST (15-37) U/L ALT (12-78) U/L Alkaline Phosphatase (46-116) U/L C-Reactive Protein (0.0-0.3) mg/dL Total Protein (6.4-8.2) g/dL Albumin (3.4-5.0) g/dL Globulin (2.3-3.5) g/dL Albumin/Globulin Ratio (1.2-2.2) Urine Color (YELLOW) Urine Appearance (CLEAR) Urine pH (5.0-8.0) Ur Specific [place] (1.008-1.030) Urine Protein (NEGATIVE) mg/dL Urine Glucose (UA) (NEGATIVE) mg/dL Urine Ketones (NEGATIVE) mg/dL Urine Occult Blood (NEGATIVE) Urine Nitrite (NEGATIVE) Urine Bilirubin (NEGATIVE) Urine Urobilinogen (0.2-1.0) EU/dL Ur Leukocyte Esterase (NEGATIVE) Urine RBC (0-5) Urine WBC (0-5) Ur Epithelial Cells Amorphous Sediment Urine Bacteria Urine Mucus Urine Other Med Orders - Current: Current Medications Acetaminophen (Acetaminophen 325 Mg Tab) 650 mg PO Q4H PRN PRN Reason: Pain (Mild 1-3)/fever Albuterol (Albuterol 0.083% 2.5 Mg/3 Ml Neb Soln) 2.5 mg NEB Q4H PRN PRN Reason: Shortness Of Breath/wheezing Albuterol/Ipratropium (Albuterol/Ipratropium 3.0-0.5 Mg/3 Ml Neb Soln) 3 ml NEB QID PRN PRN Reason: Shortness Of Breath/wheezing Alprazolam (Alprazolam 0.5 Mg Tab) 0.5 mg PO TID [facility] Last Admin: 02/10/21 08:41 Dose: 0.5 mg Documented by: Bisacodyl (Bisacodyl 5 Mg Tab) 5 mg PO DAILY PRN PRN Reason: Constipation Citalopram Hydrobromide (Citalopram 20 Mg Tab) 40 mg PO BEDTIME [facility] Diltiazem HCl (Diltiazem 120 Mg Cap.Cd) 240 mg PO DAILY [facility] Last Admin: 02/10/21 08:41 Dose: 240 mg Documented by: Docusate Sodium (Docusate Sodium 100 Mg Cap) 100 mg PO BID PRN PRN Reason: Constipation Last Admin: 02/10/21 08:41 Dose: 100 mg Documented by: Sodium Chloride (Normal Saline) 1,000 mls @ 125 mls/hr IV ASDIRECTED [facility] Last Admin: 02/10/21 01:34 Dose: 125 mls/hr Documented by: Ceftriaxone Sodium 1 gm/ (Sodium Chloride) 50 mls @ 100 mls/hr IV BEDTIME [facility] Last Admin: 02/10/21 01:35 Dose: 100 mls/hr Documented by: Magnesium Oxide (Magnesium Oxide 400 Mg Tab) 200 mg PO DAILY [facility] Last Admin: 02/10/21 08:41 Dose: 200 mg Documented by: Morphine Sulfate (Morphine 2 Mg/Ml Syringe) 2 mg IVPUSH Q2H PRN PRN Reason: Pain (severe 7-10) Non-Formulary Medication (Melatonin [Melatonin]) 10 mg PO BEDTIME [facility] Ondansetron HCl (Ondansetron 4 Mg Tab.Dis) 4 mg PO Q6H PRN PRN Reason: Nausea able to take PO Ondansetron HCl (Ondansetron 4 Mg/2 Ml Sdv) 4 mg IV Q4H PRN PRN Reason: Nausea/Vomiting Potassium Chloride (Potassium Chloride 20 Meq Tab.Er) 20 meq PO BID [facility] Last Admin: 02/10/21 08:41 Dose: 20 meq Documented by: Pravastatin Sodium (Pravastatin 20 Mg Tab) 20 mg PO BEDTIME [facility] Sodium Chloride (Sodium Chloride 0.9% 10 Ml Syringe) 10 ml FLUSH ASDIRECTED PRN PRN Reason: Keep Vein Open Last Admin: 02/09/21 20:02 Dose: 10 ml Documented by: Torsemide (Torsemide 20 Mg Tab) 20 mg PO .4XWEEKLY [facility] Triamcinolone Acetonide (Triamcinolone Acetonide 0.1% Crm 15 Gm Tube) 0 gm TOP BID [facility] Last Admin: 02/10/21 08:44 Dose: Not Given Documented by: Warfarin Sodium (Warfarin 5 Mg Tab) 5 mg PO DAILY [facility] Discontinued Medications Sodium Chloride (Normal Saline) 500 mls @ 500 mls/hr IV .BOLUS ONE Stop: 02/09/21 22:25 Last Admin: 02/09/21 21:39 Dose: 500 mls/hr Documented by: Magnesium Oxide (Magnesium Oxide 400 Mg Tab) 400 mg PO ONETIME ONE Stop: 02/10/21 01:04 Last Admin: 02/10/21 01:37 Dose: 400 mg Documented by: Pantoprazole Sodium (Pantoprazole 40 Mg Vial) 40 mg IV ONETIME ONE Stop: 02/10/21 01:04 Last Admin: 02/10/21 01:37 Dose: 40 mg Documented by: - Exam General: Reports: Alert, Oriented, Cooperative, No Acute Distress Lungs: Reports: Clear to Auscultation, Normal Respiratory Effort Cardiovascular: Reports: Regular Rate, Regular Rhythm, No Murmurs GI/Abdominal Exam: Soft, Non-Tender, No Organomegaly, No Distention
[2021-02-10] MEDS ORDERED: Melatonin 3 MG Tab PO SCH (21:00)
[2021-02-10] MEDS ORDERED: Non-Formulary Medication 1 Each (Melatonin [Melatonin] 10 MG Tablet) PO SCH (21:00)
[2021-02-10] MEDS ORDERED: Citalopram 20 MG Tab PO SCH (21:00)
[2021-02-10] MEDS ORDERED: Pravastatin 20 MG Tab PO SCH (21:00)
== END 2021-02-10 13:00 | disposition home or self-care (01) ==
LOC: JP.ED 19:08 → JP.MS 23:10
PROVIDERS: ADMIT Hospitalist; ATTEND Hospitalist
DX: R42 Dizziness and giddiness (principal); I48.0 Paroxysmal atrial fibrillation; E78.00 Pure hypercholesterolemia, unspecified; J45.909 Unspecified asthma, uncomplicated; G47.30 Sleep apnea, unspecified; E66.9 Obesity, unspecified; E83.42 Hypomagnesemia; N39.0 Urinary tract infection, site not specified; Z91.048 Other nonmedicinal substance allergy status; Z91.012 Allergy to eggs; Z88.8 Allergy status to other drugs, medicaments and biological substances; Z88.5 Allergy status to narcotic agent; Z79.899 Other long term (current) drug therapy; Z79.01 Long term (current) use of anticoagulants; Z98.890 Other specified postprocedural states; Z68.42 Body mass index [BMI] 45.0-49.9, adult
CPT/HCPCS: 36415; 71045; 80048; 80053; 81001; 83605; 83735; 85025; 85610; 85651; 86140; 87086; 93005; 99285; A9270; C9113; J0696; J7030; J7040; 96365; 96375; G0378

== ENCOUNTER 2021-04-28 06:31 | Emergency (ER) | payer MEDICARE, OTHER ==
[2021-04-28 06:45] VITALS: BP 144/64; PULSE 93
--- NOTE | 2021-04-28 07:51 | EDM.PDOC ---
ED HPI GENERAL MEDICAL PROBLEM - General Chief Complaint: ENT Problem Stated Complaint: BLOODY NOSE Time Seen by Provider: 04/28/21 07:20 Source of Information: Reports: Patient History Limitations: Reports: No Limitations - History of Present Illness INITIAL COMMENTS - FREE TEXT/NARRATIVE: This is a 71-year-old female with history of atrial fibrillation managed on Coumadin who presents with concerns of epistaxis. She woke at approximately 6 AM this morning with blood in her CPAP mask. She reports that she thinks the bleeding is out of her right nares. She denies any shortness of breath, dizziness, weakness. - Related Data Allergies Allergy/AdvReac Type Severity Reaction Status Date / Time adhesive tape Allergy Other Verified 04/28/21 06:45 doxycycline Allergy Other Verified 04/28/21 06:45 egg yolk Allergy Other Verified 04/28/21 06:45 latex Allergy Rash Verified 04/28/21 06:45 levofloxacin [From Levaquin] Allergy Other Verified 04/28/21 06:45 oxycodone Allergy Other Verified 04/28/21 06:45 codeine AdvReac Hallucinati Verified 04/28/21 06:45 ons Home Meds: Home Meds ALPRAZolam [Alprazolam] 0.5 mg PO TID 11/24/15 [History] Citalopram Hydrobromide [Celexa] 40 mg PO BEDTIME 11/24/15 [History] Potassium Chloride [Klor-Con M20] 20 meq PO BID 11/24/15 [History] Pravastatin [Pravachol] 20 mg PO BEDTIME 11/24/15 [History] Fish Oil/[place]-3 Fatty Acids [Fish Oil 1,000 MG] 1 gm PO BID 10/17/16 [History] Albuterol Sulfate [Proair Hfa] 2 puff INH Q6H PRN 01/15/19 [History] Melatonin 10 mg PO BEDTIME 01/15/19 [History] Torsemide 20 mg PO .4XWEEKLY 01/15/19 [History] Warfarin Sodium 5 mg PO DAILY #0 01/18/19 [Rx] Triamcinolone Acetonide 1 applic TOP BID 03/12/19 [History] Acetaminophen [Tylenol] 650 mg PO Q4H PRN 05/01/19 [History] Biotin 5,000 mcg PO DAILY 10/03/19 [History] Diltiazem HCl [Diltiazem 24Hr Cd] 240 mg PO DAILY 10/03/19 [History] Glycerin/Min Oil/Polycarbophil [Replens Vaginal Applicator] 1 applic VAG DAILY PRN 04/05/21 [History] Hydrocortisone [Anusol-HC] 1 applic RC BID 04/05/21 [History] polyethylene glycoL 3350 [MiraLAX] 17 gm PO DAILY 04/05/21 [History] Cannabidiol (Cbd) Extract [CBD Oil] 1 tab PO DAILY 04/06/21 [History] Past Medical History HEENT History: Reports: Impaired Vision Cardiovascular History: Reports: Afib, High Cholesterol Respiratory History: Reports: Asthma, Sleep Apnea Gastrointestinal History: Reports: Pancreatitis Genitourinary History: Reports: None [employer] History: Reports: Musculoskeletal History: Reports: Fracture Other Musculoskeletal History: s/p ORIF R ankle 01/16/19. 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 Fell injurying L shoulder 01/28/20 Neurological History: Reports: Migraines Psychiatric History: Reports: Anxiety, Depression Endocrine/Metabolic History: Reports: Obesity/BMI 30+, Other (See Below) Other Endocrine/Metabolic History: Thyroid nodule bilat Hematologic History: Reports: None Immunologic History: Reports: None Oncologic (Cancer) History: Reports: Thyroid, Other (See Below) Other Oncologic History: "currently watching thyroid sample" Dermatologic History: Reports: None, Other (See Below) Other Dermatologic History: rash to stomach - Infectious Disease History Infectious Disease History: Reports: Chicken Pox, Measles, Mumps - Past Surgical History Head Surgeries/Procedures: Reports: None HEENT Surgical History: Reports: Tonsillectomy Cardiovascular Surgical History: Reports: None Respiratory Surgical History: Reports: None GI Surgical History: Reports: None Endocrine Surgical History: Reports: None Neurological Surgical History: Reports: None Musculoskeletal Surgical History: Reports: Joint Replacement, ORIF, Shoulder Replacement, Shoulder Surgery Other Musculoskeletal Surgeries/Procedures:: LT reverse total shoulder 09/18/19 Dermatological Surgical History: Reports: None Social & Family History - Family History Family Medical History: Unobtainable Cardiac: Reports: Heart Failure Respiratory: Reports: Asthma Endocrine/Metabolic: Reports: Diabetes, type II - Tobacco Use Tobacco Use Status *Q: Never Tobacco User Second Hand Smoke Exposure: Yes - Caffeine Use Caffeine Use: Reports: Coffee Other Caffeine Use: 1 cup per day - Recreational Drug Use Recreational Drug Use: No - Living Situation & Occupation Living situation: Reports: Single, with Family ED ROS ENT - Review of Systems Review Of Systems: See Below Constitutional: Reports: No Symptoms HEENT: Reports: Nosebleed Respiratory: Reports: No Symptoms Cardiovascular: Reports: No Symptoms Endocrine: Reports: No Symptoms GI/Abdominal: Reports: No Symptoms : Reports: No Symptoms Musculoskeletal: Reports: No Symptoms Skin: Reports: No Symptoms Neurological: Reports: No Symptoms Psychiatric: Reports: No Symptoms Hematologic/Lymphatic: Reports: No Symptoms Immunologic: Reports: No Symptoms ED EXAM, ENT - Physical Exam Exam: See Below Exam Limited By: No Limitations General Appearance: Alert, No Apparent Distress Ears: Normal External Exam Nose: Other (No active epistaxis. Examination of the nares without evidence of mucosal erosions.) Mouth/Throat: Normal Inspection, Other (No evidence of posterior bleeding.) Head: Atraumatic, Normocephalic Neck: Normal Inspection Respiratory/Chest: No Respiratory Distress Cardiovascular: Regular Rate, Rhythm GI/Abdominal: No Distention Back: Normal Inspection Extremities: Normal Inspection Neurological: Alert, Oriented Psychiatric: Normal Affect, Normal Mood Skin: Warm, Dry Course - Vital Signs Last Recorded V/S: Last Vital Signs Temp 35.9 C L 04/28/21 06:44 Pulse 93 04/28/21 06:44 Resp 18 04/28/21 06:44 BP 144/64 H 04/28/21 06:44 Pulse Ox 95 04/28/21 06:44 - Orders/Labs/Meds Labs: Laboratory Tests 04/28/21 Range/Units 07:53 PT 21.4 H (9.5-12.0) sec INR 1.99 H (0.80-1.20) - Re-Assessments/Exams Free Text/Narrative Re-Assessment/Exam: 71-year-old on Coumadin presents with concerns of epistaxis. By the time I evaluate her in the ER there is no active bleeding, both anteriorly and posteriorly. She was observed in the ED without recurrence. INR is 2.0 Safe for discharge with return precautions 04/28/21 08:16 Departure - Departure Time of Disposition: 08:17 Disposition: Home, Self-Care 01 Clinical Impression: Epistaxis - Discharge Information *PRESCRIPTION DRUG MONITORING PROGRAM REVIEWED*: No *COPY OF PRESCRIPTION DRUG MONITORING REPORT IN PATIENT MATTEO: No Instructions: Nosebleed, [id number] Referrals: Gary Phipps MD [Primary Care Provider] - Forms: ED Department Discharge Additional Instructions: As we discussed, please apply the clamp to your nose if your nosebleed recurs. It is okay to watch at home for a bit and see if this resolves the problem. If you find out after 30 to 45 minutes that it is still bleeding, we are always happy to reevaluate you in the emergency room. Thank you for trusting us to care for you today. Sepsis Event Note (ED) - Evaluation Sepsis Screening Result: No Definite Risk - Focused Exam Vital Signs: Vital Signs Temp Pulse Resp BP Pulse Ox 04/28/21 06:44 35.9 C L 93 18 144/64 H 95
== END 2021-04-28 08:20 | disposition home or self-care (01) ==
LOC: JP.ED 06:31
DX: R04.0 Epistaxis (principal); I48.91 Unspecified atrial fibrillation; E78.00 Pure hypercholesterolemia, unspecified; E66.9 Obesity, unspecified; Z68.30 Body mass index [BMI] 30.0-30.9, adult; Z79.01 Long term (current) use of anticoagulants; Z79.899 Other long term (current) drug therapy; Z88.5 Allergy status to narcotic agent; Z91.040 Latex allergy status; Z88.1 Allergy status to other antibiotic agents; Z91.048 Other nonmedicinal substance allergy status
CPT/HCPCS: 36415; 85610; 99282; 99283

== ENCOUNTER 2021-05-01 19:37 | Emergency (ER) | payer MEDICARE, OTHER ==
[2021-05-01 20:17] VITALS: BP 155/87; PULSE 94
[2021-05-01] MEDS ORDERED: Oxymetazoline 0.05% Nasal Spray 30 ML Bottle NAS ONE (20:36)
--- NOTE | 2021-05-01 21:15 | EDM.PDOC ---
ED HPI GENERAL MEDICAL PROBLEM - General Chief Complaint: ENT Problem Stated Complaint: BLOODY NOSE Time Seen by Provider: 05/01/21 20:11 Source of Information: Reports: Patient History Limitations: Reports: No Limitations - History of Present Illness INITIAL COMMENTS - FREE TEXT/NARRATIVE: 71 yo anticoagulated female presents to ER with nose bleed. she was also seen earlier this week for same. This morning she woke with a nose bleed and was able to get it stopped in 15 minutes. later this morning she had another last a few minutes. She last had her INR checked monday and it was 2.5. WHen in last her INR was 1.9. mildly elevated blood pressure tonight. She does sleep with a CPAP Treatments CUT OUT STITCHER: Reports: Other (see below) Other Treatments CUT OUT STITCHER: clamped nose - Related Data Allergies Allergy/AdvReac Type Severity Reaction Status Date / Time adhesive tape Allergy Other Verified 04/28/21 06:45 doxycycline Allergy Other Verified 04/28/21 06:45 egg yolk Allergy Other Verified 04/28/21 06:45 latex Allergy Rash Verified 04/28/21 06:45 levofloxacin [From Levaquin] Allergy Other Verified 04/28/21 06:45 oxycodone Allergy Other Verified 04/28/21 06:45 codeine AdvReac Hallucinati Verified 04/28/21 06:45 ons Home Meds: Home Meds ALPRAZolam [Alprazolam] 0.5 mg PO TID 11/24/15 [History] Citalopram Hydrobromide [Celexa] 40 mg PO BEDTIME 11/24/15 [History] Potassium Chloride [Klor-Con M20] 20 meq PO BID 11/24/15 [History] Pravastatin [Pravachol] 20 mg PO BEDTIME 11/24/15 [History] Fish Oil/[place]-3 Fatty Acids [Fish Oil 1,000 MG] 1 gm PO BID 10/17/16 [History] Albuterol Sulfate [Proair Hfa] 2 puff INH Q6H PRN 01/15/19 [History] Melatonin 10 mg PO BEDTIME 01/15/19 [History] Torsemide 20 mg PO .4XWEEKLY 01/15/19 [History] Warfarin Sodium 5 mg PO DAILY #0 01/18/19 [Rx] Triamcinolone Acetonide 1 applic TOP BID 03/12/19 [History] Acetaminophen [Tylenol] 650 mg PO Q4H PRN 05/01/19 [History] Biotin 5,000 mcg PO DAILY 10/03/19 [History] Diltiazem HCl [Diltiazem 24Hr Cd] 240 mg PO DAILY 10/03/19 [History] Glycerin/Min Oil/Polycarbophil [Replens Vaginal Applicator] 1 applic VAG DAILY PRN 04/05/21 [History] Hydrocortisone [Anusol-HC] 1 applic RC BID 04/05/21 [History] polyethylene glycoL 3350 [MiraLAX] 17 gm PO DAILY 04/05/21 [History] Cannabidiol (Cbd) Extract [CBD Oil] 1 tab PO DAILY 04/06/21 [History] Past Medical History HEENT History: Reports: Impaired Vision Cardiovascular History: Reports: Afib, High Cholesterol Respiratory History: Reports: Asthma, Sleep Apnea Gastrointestinal History: Reports: Pancreatitis Genitourinary History: Reports: None [employer]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 Fell injurying L shoulder 01/28/20 Neurological History: Reports: Migraines Psychiatric History: Reports: Anxiety, Depression Endocrine/Metabolic History: Reports: Obesity/BMI 30+, Other (See Below) Other Endocrine/Metabolic History: Thyroid nodule bilat Hematologic History: Reports: None Immunologic History: Reports: None Oncologic (Cancer) History: Reports: Thyroid, Other (See Below) Other Oncologic History: "currently watching thyroid sample" Dermatologic History: Reports: None, Other (See Below) Other Dermatologic History: rash to stomach - Infectious Disease History Infectious Disease History: Reports: Chicken Pox, Measles, Mumps - Past Surgical History Head Surgeries/Procedures: Reports: None HEENT Surgical History: Reports: Tonsillectomy Cardiovascular Surgical History: Reports: None Respiratory Surgical History: Reports: None GI Surgical History: Reports: None Endocrine Surgical History: Reports: None Neurological Surgical History: Reports: None Musculoskeletal Surgical History: Reports: Joint Replacement, ORIF, Shoulder Replacement, Shoulder Surgery Other Musculoskeletal Surgeries/Procedures:: LT reverse total shoulder 09/18/19 Dermatological Surgical History: Reports: None Social & Family History - Family History Family Medical History: Unobtainable Cardiac: Reports: Heart Failure Respiratory: Reports: Asthma Endocrine/Metabolic: Reports: Diabetes, type II - Tobacco Use Tobacco Use Status *Q: Never Tobacco User - Caffeine Use Caffeine Use: Reports: Coffee Other Caffeine Use: 1 cup per day - Recreational Drug Use Recreational Drug Use: No - Living Situation & Occupation Living situation: Reports: Single, with Family ED ROS ENT - Review of Systems Review Of Systems: See Below Constitutional: Denies: Fever, Chills HEENT: Reports: Sinus Problem Respiratory: Denies: Shortness of Breath, Wheezing Cardiovascular: Denies: Chest Pain GI/Abdominal: Reports: Nausea ED EXAM, ENT - Physical Exam Exam: See Below Exam Limited By: No Limitations General Appearance: Alert, WD/WN, No Apparent Distress Nose: Other (right nare flowing blood) ED ENT PROCEDURES - Epistaxis Procedure Indication: Epistaxis Recent anticoagulants/antiplatlets: Yes Uncontrolled HTN: No Recent septal/nasal surgery: No Site of bleeding: Right Nare Clearing of clots: Patient Blew Nose Topical Meds: Phenylephrine Ice pack to area: No Posterior packing: Other (nasal rhinorocket 7.5 ) Complications: No Course - Vital Signs Last Recorded V/S: Last Vital Signs Temp 35.6 C L 05/01/21 20:10 Pulse 94 05/01/21 20:10 Resp 16 05/01/21 20:10 BP 155/87 H 05/01/21 20:10 Pulse Ox 97 05/01/21 20:10 - Orders/Labs/Meds Meds: Medications Discontinued Medications Generic Name Dose Route Start Last Admin Trade Name Freq PRN Reason Stop Dose Admin Oxymetazoline HCl 2 ml 05/01/21 20:36 05/01/21 20:40 Oxymetazoline 0.05% Nasal [place] 30 Ml Bottle MACKENZIE 05/01/21 20:37 1 spray ONETIME ONE Administration Departure - Departure Time of Disposition: 21:33 Disposition: Home, Self-Care 01 Condition: Good Clinical Impression: Acute posterior epistaxis - Discharge Information *PRESCRIPTION DRUG MONITORING PROGRAM REVIEWED*: Not Applicable *COPY OF PRESCRIPTION DRUG MONITORING REPORT IN PATIENT MATTEO: Not Applicable Referrals: Gary Phipps MD [Primary Care Provider] - Forms: ED Department Discharge Additional Instructions: do not use CPAP with packing in place you may have dark stools because of the blood you have swallowed over the last few days you need to be seen again if you develop a fever nasal packing can be removed by your primary care provider of [facility] center in 3-4 days. call your primary care provider Monday morning Sepsis Event Note (ED) - Evaluation Sepsis Screening Result: No Definite Risk - Focused Exam Vital Signs: Vital Signs Temp Pulse Resp BP Pulse Ox 05/01/21 20:10 35.6 C L 94 16 155/87 H 97 05/01/21 19:51 35.6 C L 94 16 155/87 H 97
== END 2021-05-01 21:49 | disposition home or self-care (01) ==
LOC: JP.ED 19:37
DX: R04.0 Epistaxis (principal); I48.91 Unspecified atrial fibrillation; E78.00 Pure hypercholesterolemia, unspecified; J45.909 Unspecified asthma, uncomplicated; E66.9 Obesity, unspecified; Z68.43 Body mass index [BMI] 50.0-59.9, adult; Z91.048 Other nonmedicinal substance allergy status; Z88.1 Allergy status to other antibiotic agents; Z91.012 Allergy to eggs; Z91.040 Latex allergy status; Z88.8 Allergy status to other drugs, medicaments and biological substances; Z88.5 Allergy status to narcotic agent; Z79.01 Long term (current) use of anticoagulants; Z79.899 Other long term (current) drug therapy
CPT/HCPCS: 30905; 99283; A9270; 30901; 99282

== ENCOUNTER 2021-05-03 00:41 | Emergency (ER) | payer MEDICARE, OTHER ==
--- NOTE | 2021-05-03 01:30 | EDM.PDOC ---
ED HPI GENERAL MEDICAL PROBLEM - General Chief Complaint: ENT Problem Stated Complaint: BLOODY NOSE Time Seen by Provider: 05/03/21 01:24 Source of Information: Reports: Patient, Old Records, RN Notes Reviewed History Limitations: Reports: No Limitations - History of Present Illness INITIAL COMMENTS - FREE TEXT/NARRATIVE: 71-year-old female presents emergency department today with complaint of bloody nose, she was in the emergency department last night treated Rhino packing was placed 7.5 cm she states it was working well and an hour prior to presentation today started bleeding again she is on anticoagulation - Related Data Allergies Allergy/AdvReac Type Severity Reaction Status Date / Time adhesive tape Allergy Other Verified 05/03/21 01:21 doxycycline Allergy Other Verified 05/03/21 01:21 egg yolk Allergy Other Verified 05/03/21 01:21 latex Allergy Rash Verified 05/03/21 01:21 levofloxacin [From Levaquin] Allergy Other Verified 05/03/21 01:21 oxycodone Allergy Other Verified 05/03/21 01:21 codeine AdvReac Hallucinati Verified 05/03/21 01:21 ons Home Meds: Home Meds ALPRAZolam [Alprazolam] 0.5 mg PO TID 11/24/15 [History] Citalopram Hydrobromide [Celexa] 40 mg PO BEDTIME 11/24/15 [History] Potassium Chloride [Klor-Con M20] 20 meq PO BID 11/24/15 [History] Pravastatin [Pravachol] 20 mg PO BEDTIME 11/24/15 [History] Fish Oil/[place]-3 Fatty Acids [Fish Oil 1,000 MG] 1 gm PO BID 10/17/16 [History] Albuterol Sulfate [Proair Hfa] 2 puff INH Q6H PRN 01/15/19 [History] Melatonin 10 mg PO BEDTIME 01/15/19 [History] Torsemide 20 mg PO .4XWEEKLY 01/15/19 [History] Warfarin Sodium 5 mg PO DAILY #0 01/18/19 [Rx] Triamcinolone Acetonide 1 applic TOP BID 03/12/19 [History] Acetaminophen [Tylenol] 650 mg PO Q4H PRN 05/01/19 [History] Biotin 5,000 mcg PO DAILY 10/03/19 [History] Diltiazem HCl [Diltiazem 24Hr Cd] 240 mg PO DAILY 10/03/19 [History] Glycerin/Min Oil/Polycarbophil [Replens Vaginal Applicator] 1 applic VAG DAILY PRN 04/05/21 [History] Hydrocortisone [Anusol-HC] 1 applic RC BID 04/05/21 [History] polyethylene glycoL 3350 [MiraLAX] 17 gm PO DAILY 04/05/21 [History] Cannabidiol (Cbd) Extract [CBD Oil] 1 tab PO DAILY 04/06/21 [History] Past Medical History HEENT History: Reports: Impaired Vision Cardiovascular History: Reports: Afib, High Cholesterol Respiratory History: Reports: Asthma, Sleep Apnea Gastrointestinal History: Reports: Pancreatitis Genitourinary History: Reports: 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 Fell injurying L shoulder 01/28/20 Neurological History: Reports: Migraines Psychiatric History: Reports: Anxiety, Depression Endocrine/Metabolic History: Reports: Obesity/BMI 30+, Other (See Below) Other Endocrine/Metabolic History: Thyroid nodule bilat Hematologic History: Reports: None Immunologic History: Reports: None Oncologic (Cancer) History: Reports: Thyroid, Other (See Below) Other Oncologic History: "currently watching thyroid sample" Dermatologic History: Reports: None, Other (See Below) Other Dermatologic History: rash to stomach - Infectious Disease History Infectious Disease History: Reports: Chicken Pox, Measles, Mumps - Past Surgical History Head Surgeries/Procedures: Reports: None HEENT Surgical History: Reports: Tonsillectomy Cardiovascular Surgical History: Reports: None Respiratory Surgical History: Reports: None GI Surgical History: Reports: None Endocrine Surgical History: Reports: None Neurological Surgical History: Reports: None Musculoskeletal Surgical History: Reports: Joint Replacement, ORIF, Shoulder Replacement, Shoulder Surgery Other Musculoskeletal Surgeries/Procedures:: LT reverse total shoulder 09/18/19 Dermatological Surgical History: Reports: None Social & Family History - Family History Family Medical History: Unobtainable Cardiac: Reports: Heart Failure Respiratory: Reports: Asthma Endocrine/Metabolic: Reports: Diabetes, type II - Caffeine Use Caffeine Use: Reports: Coffee Other Caffeine Use: 1 cup per day - Living Situation & Occupation Living situation: Reports: Single, with Family ED ROS ENT - Review of Systems Review Of Systems: See Below HEENT: Reports: Nosebleed ED EXAM, ENT - Physical Exam Exam: See Below Text/Narrative:: Examination the nares are not appreciate any active bleeding there is dried blood around the nares the nasal tampon is in place appears to be functioning properly mouth mucosa is moist and pink no erythema exudate known soft palate tongue is midline uvula is midline I do not appreciate any active bleeding in the posterior pharynx, I did add 2 cc of air to the balloon Exam Limited By: No Limitations General Appearance: Alert, WD/WN, No Apparent Distress Course - Vital Signs Last Recorded V/S: Last Vital Signs Temp 96.6 F L 05/03/21 01:19 Pulse 56 L 05/03/21 01:19 Resp 17 05/03/21 01:19 BP 145/74 H 05/03/21 01:19 Pulse Ox 95 05/03/21 01:19 - Orders/Labs/Meds Labs: Laboratory Tests 05/03/21 05/03/21 Range/Units 01:41 01:41 Hgb 13.3 (12.0-15.0) g/dL PT 27.9 H (9.5-12.0) sec INR 2.61 H (0.80-1.20) Departure - Departure Time of Disposition: 02:35 Disposition: Home, Self-Care 01 Condition: Fair Clinical Impression: Epistaxis - Discharge Information Instructions: Nosebleed, [id number] Referrals: PCP,None [Primary Care Provider] - Forms: ED Department Discharge Additional Instructions: If the bleeding starts again and 1 cc of air to balloon, if the pressure and pain is too great remove 1 cc of air from the bone please follow-up with your primary care Monday or Monday of this upcoming week Sepsis Event Note (ED) - Evaluation Sepsis Screening Result: No Definite Risk - Focused Exam Vital Signs: Vital Signs Temp Pulse Resp BP Pulse Ox 05/03/21 01:19 96.6 F L 56 L 17 145/74 H 95 - Assessment/Plan Plan: Assessment Acuity = acute Site and laterality = epistasis right nare Etiology = unknown Manifestations = none Location of injury = Home Lab values = INR 2.61, hemoglobin 13.3 Plan She had good relief with 2 cc of air added she is sent home with a syringe she will add or subtract air as needed depending on bleeding follow-up with primary care next 2 days This note was dictated using [employer] voice recognition software please call with any questions on syntax or grammar.
[2021-05-03 02:04] VITALS: BP 145/74; PULSE 56
== END 2021-05-03 02:47 | disposition home or self-care (01) ==
LOC: JP.ED 00:41
DX: R04.0 Epistaxis (principal); I48.91 Unspecified atrial fibrillation; E78.00 Pure hypercholesterolemia, unspecified; Z91.048 Other nonmedicinal substance allergy status; Z88.1 Allergy status to other antibiotic agents; Z91.012 Allergy to eggs; Z91.040 Latex allergy status; Z79.01 Long term (current) use of anticoagulants; Z79.899 Other long term (current) drug therapy
CPT/HCPCS: 36415; 85018; 85610; 99283

== ENCOUNTER 2021-05-03 10:14 | Emergency (ER) | payer MEDICARE, OTHER ==
--- NOTE | 2021-05-03 10:47 | EDM.PDOC ---
ED HPI GENERAL MEDICAL PROBLEM - General Chief Complaint: ENT Problem Stated Complaint: PERSISTANT BLOODY NOSE Time Seen by Provider: 05/03/21 10:30 Source of Information: Reports: Patient, Old Records History Limitations: Reports: No Limitations - History of Present Illness INITIAL COMMENTS - FREE TEXT/NARRATIVE: 71 yo female presents with a nose bleed. She has been seen here several times over the long weekend for this. She is on warfarin and has HTN. She has Rhinorocket in place currently and is not bleeding. She said the nose gushed blood at home before she came and she put more air in the device and shortly after that the bleeding stopped and has not recurred. Here INR last night was 2.6. Chart review suggests she has the longer 7.5 cm Rhinorocket. Onset: Sudden (intermittent since last night. 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 (see below) (See HPI) - Related Data Allergies Allergy/AdvReac Type Severity Reaction Status Date / Time adhesive tape Allergy Other Verified 05/03/21 10:45 doxycycline Allergy Other Verified 05/03/21 10:45 egg yolk Allergy Other Verified 05/03/21 10:45 latex Allergy Rash Verified 05/03/21 10:45 levofloxacin [From Levaquin] Allergy Other Verified 05/03/21 10:45 oxycodone Allergy Other Verified 05/03/21 10:45 codeine AdvReac Hallucinati Verified 05/03/21 10:45 ons Home Meds: Home Meds ALPRAZolam [Alprazolam] 0.5 mg PO TID 11/24/15 [History] Citalopram Hydrobromide [Celexa] 40 mg PO BEDTIME 11/24/15 [History] Potassium Chloride [Klor-Con M20] 20 meq PO BID 11/24/15 [History] Pravastatin [Pravachol] 20 mg PO BEDTIME 11/24/15 [History] Fish Oil/[place]-3 Fatty Acids [Fish Oil 1,000 MG] 1 gm PO BID 10/17/16 [History] Albuterol Sulfate [Proair Hfa] 2 puff INH Q6H PRN 01/15/19 [History] Melatonin 10 mg PO BEDTIME 01/15/19 [History] Torsemide 20 mg PO .4XWEEKLY 01/15/19 [History] Warfarin Sodium 5 mg PO DAILY #0 01/18/19 [Rx] Triamcinolone Acetonide 1 applic TOP BID 03/12/19 [History] Acetaminophen [Tylenol] 650 mg PO Q4H PRN 05/01/19 [History] Biotin 5,000 mcg PO DAILY 10/03/19 [History] Diltiazem HCl [Diltiazem 24Hr Cd] 240 mg PO DAILY 10/03/19 [History] Glycerin/Min Oil/Polycarbophil [Replens Vaginal Applicator] 1 applic VAG DAILY PRN 04/05/21 [History] Hydrocortisone [Anusol-HC] 1 applic RC BID 04/05/21 [History] polyethylene glycoL 3350 [MiraLAX] 17 gm PO DAILY 04/05/21 [History] Cannabidiol (Cbd) Extract [CBD Oil] 1 tab PO DAILY 04/06/21 [History] Past Medical History HEENT History: Reports: Impaired Vision Cardiovascular History: Reports: Afib, High Cholesterol Respiratory History: Reports: Asthma, Sleep Apnea Gastrointestinal History: Reports: Pancreatitis Genitourinary History: Reports: None 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 Fell injurying L shoulder 01/28/20 Neurological History: Reports: Migraines Psychiatric History: Reports: Anxiety, Depression Endocrine/Metabolic History: Reports: Obesity/BMI 30+, Other (See Below) Other Endocrine/Metabolic History: Thyroid nodule bilat Hematologic History: Reports: None Immunologic History: Reports: None Oncologic (Cancer) History: Reports: Thyroid, Other (See Below) Other Oncologic History: "currently watching thyroid sample" Dermatologic History: Reports: None, Other (See Below) Other Dermatologic History: rash to stomach - Infectious Disease History Infectious Disease History: Reports: Chicken Pox, Measles, Mumps - Past Surgical History Head Surgeries/Procedures: Reports: None HEENT Surgical History: Reports: Tonsillectomy Cardiovascular Surgical History: Reports: None Respiratory Surgical History: Reports: None GI Surgical History: Reports: None Endocrine Surgical History: Reports: None Neurological Surgical History: Reports: None Musculoskeletal Surgical History: Reports: Joint Replacement, ORIF, Shoulder Replacement, Shoulder Surgery Other Musculoskeletal Surgeries/Procedures:: LT reverse total shoulder 09/18/19 Dermatological Surgical History: Reports: None Social & Family History - Family History Family Medical History: Unobtainable Cardiac: Reports: Heart Failure Respiratory: Reports: Asthma Endocrine/Metabolic: Reports: Diabetes, type II - Caffeine Use Caffeine Use: Reports: Coffee Other Caffeine Use: 1 cup per day - Living Situation & Occupation Living situation: Reports: Single, with Family ED ROS ENT - Review of Systems Review Of Systems: See Below Constitutional: Reports: No Symptoms HEENT: Reports: Nosebleed Respiratory: Reports: No Symptoms Cardiovascular: Denies: Chest Pain, Lightheadedness Skin: Denies: Bruising Neurological: Reports: No Symptoms ED EXAM, ENT - Physical Exam Exam: See Below Exam Limited By: No Limitations General Appearance: Alert, WD/WN, No Apparent Distress, Obese Eye Exam: Bilateral Eye: Normal Inspection Ears: Normal External Exam, Normal Canal, Hearing Grossly Normal Nose: Normal Inspection, No Blood, Other (Rhinorocket R nares). No: Active Bleeding Mouth/Throat: Normal Inspection, Normal Lips, Normal Oropharynx. No: Bleeding Head: Atraumatic, Normocephalic Neck: Normal Inspection Respiratory/Chest: No Respiratory Distress, Lungs Clear, Normal Breath Sounds Cardiovascular: Regular Rate, Rhythm, No Edema Extremities: Normal Inspection Neurological: Alert, Oriented, CN II-XII Intact, Normal Cognition, No Motor/Sensory Deficits Psychiatric: Normal Affect, Normal Mood Skin: Warm, Dry, Intact, Normal Color, No Rash Course - Vital Signs Last Recorded V/S: Last Vital Signs Temp 36.4 C 05/03/21 10:39 Pulse 80 05/03/21 10:49 Resp BP 128/74 05/03/21 10:49 Pulse Ox 95 05/03/21 10:49 - Orders/Labs/Meds Labs: Laboratory Tests 05/03/21 Range/Units 10:30 Hgb 13.2 (12.0-15.0) g/dL Meds: Medications Discontinued Medications Generic Name Dose Route Start Last Admin Trade Name Evelyn PRN Reason Stop Dose Admin Acetaminophen 1,000 mg 05/03/21 11:31 05/03/21 11:51 Acetaminophen 500 Mg Tab PO 05/03/21 11:32 1,000 mg ONETIME ONE Administration - Re-Assessments/Exams Free Text/Narrative Re-Assessment/Exam: 05/03/21 12:13 No re-bleeding while here. MADRIGAL better after Tylenol. Departure - Departure Time of Disposition: 12:15 Disposition: Home, Self-Care 01 Condition: Good Clinical Impression: Epistaxis - Discharge Information *PRESCRIPTION DRUG MONITORING PROGRAM REVIEWED*: No *COPY OF PRESCRIPTION DRUG MONITORING REPORT IN PATIENT MATTEO: No Instructions: Nosebleed, [id number] Referrals: Gary Phipps MD [Primary Care Provider] - Forms: ED Department Discharge Additional Instructions: Avoid bending over, keep your head elevated. Use acetaminophen 1000 mg every 6 hrs as needed for pain relief. Avoid aspirin, ibuprofen, or Aleve due to their tendency to make you bleed more. Hold your warfarin today and until after you see your doctor tomorrow. Recheck as needed. Rest today to keep your heart rate low and BP low. Sepsis Event Note (ED) - Evaluation Sepsis Screening Result: No Definite Risk - Focused Exam Vital Signs: Vital Signs Temp Pulse BP Pulse Ox 05/03/21 10:49 80 128/74 95 05/03/21 10:39 36.4 C 101 H 151/78 H 93 L 05/03/21 10:28 36.4 C 101 H 151/78 H 93 L
[2021-05-03 10:51] VITALS: BP 128/74; PULSE 80
[2021-05-03] MEDS ORDERED: Acetaminophen 500 MG Tab PO ONE (11:31)
== END 2021-05-03 12:37 | disposition home or self-care (01) ==
LOC: JP.ED 10:14
DX: R04.0 Epistaxis (principal); I48.91 Unspecified atrial fibrillation; E78.00 Pure hypercholesterolemia, unspecified; J45.909 Unspecified asthma, uncomplicated; E66.9 Obesity, unspecified; Z68.42 Body mass index [BMI] 45.0-49.9, adult; Z91.048 Other nonmedicinal substance allergy status; Z88.1 Allergy status to other antibiotic agents; Z91.012 Allergy to eggs; Z91.040 Latex allergy status; Z88.5 Allergy status to narcotic agent; Z79.01 Long term (current) use of anticoagulants; Z79.899 Other long term (current) drug therapy
CPT/HCPCS: 36415; 85018; 85610; 99283; A9270

== ENCOUNTER 2021-06-01 05:51 | Inpatient (IN) | payer MEDICARE, OTHER ==
[2021-06-01] MEDS ORDERED: Torsemide 20 MG Tab PO ONE ×3 (06:26)
[2021-06-01] MEDS ORDERED: Albuterol/Ipratropium 3.0-0.5 MG/3 ML Neb Soln NEB ONE (06:30)
[2021-06-01] MEDS ORDERED: ceFAZolin 2 GM in Premix Bag 1 BAG IV ONE (06:30)
[2021-06-01] MEDS ORDERED: Acetaminophen 500 MG Tab PO ONE (06:30)
[2021-06-01] MEDS ORDERED: fentaNYL 250 MCG/5 ML SDV ONE (07:06)
[2021-06-01] MEDS ORDERED: Succinylcholine 200 MG/10 ML MDV ONE (07:07)
[2021-06-01] MEDS ORDERED: Rocuronium 50 MG/5 ML Vial ONE (07:07)
[2021-06-01] MEDS ORDERED: Propofol 200 MG/20 ML SDV ONE (07:07)
[2021-06-01] MEDS ORDERED: Glycopyrrolate 0.2 MG/ML 5 ML MDV ONE (07:07)
[2021-06-01] MEDS ORDERED: Ondansetron 4 MG/2 ML SDV ONE (07:07)
[2021-06-01] MEDS ORDERED: Dexamethasone 4 MG/ML SDV ONE (07:07)
[2021-06-01] MEDS ORDERED: Neostigmine Methylsulfate 1 MG/ML 5 ML Syringe ONE (07:07)
[2021-06-01] MEDS: Dextrose 5%-Lactated Ringers 1,000 ML IV SCH ×2 (07:27→20:50)
[2021-06-01] MEDS ORDERED: Ondansetron 4 MG/2 ML SDV IVPUSH PRN ×2 (08:22→11:45)
[2021-06-01] MEDS ORDERED: Naloxone 0.4 MG/ML SDV IVPUSH PRN (08:22)
[2021-06-01] MEDS ORDERED: diphenhydrAMINE 25 MG Cap PO PRN (08:22)
[2021-06-01] MEDS ORDERED: diphenhydrAMINE 50 MG/ML SDV IVPUSH PRN (08:22)
[2021-06-01] MEDS ORDERED: HYDROmorphone/Normal Saline 15 MG/30 ML PCA IV PRN (08:22)
[2021-06-01] MEDS ORDERED: Albuterol/Ipratropium 3.0-0.5 MG/3 ML Neb Soln INH PRN (11:45)
[2021-06-01] MEDS: Acetaminophen 325 MG Tab PO SCH ×3 (13:07→23:30)
[2021-06-01] MEDS: Albuterol/Ipratropium 3.0-0.5 MG/3 ML Neb Soln INH SCH ×2 (14:43→20:40)
[2021-06-01] MEDS: ceFAZolin 2 GM in Premix Bag 1 BAG IV SCH ×2 (14:47→23:30)
[2021-06-01] MEDS ORDERED: Warfarin 2.5 MG Tab PO SCH (16:00)
[2021-06-01] MEDS: Citalopram 20 MG Tab PO SCH (20:49)
[2021-06-01] MEDS: Melatonin 3 MG Tab PO PRN (20:49)
[2021-06-01] MEDS: ALPRAZolam 0.5 MG Tab PO PRN (20:49)
[2021-06-02] MEDS: Acetaminophen 325 MG Tab PO SCH ×4 (06:07→23:28)
[2021-06-02] MEDS: Albuterol/Ipratropium 3.0-0.5 MG/3 ML Neb Soln INH SCH ×4 (07:31→21:32)
[2021-06-02] MEDS ORDERED: HYDROmorphone 2 MG Tab PO PRN (07:32)
[2021-06-02] MEDS: ceFAZolin 2 GM in Premix Bag 1 BAG IV SCH (07:53)
[2021-06-02] MEDS: Diltiazem 120 MG Cap.CD PO SCH (08:44)
[2021-06-02] MEDS: ALPRAZolam 0.5 MG Tab PO PRN ×2 (09:46→21:32)
[2021-06-02] MEDS: Magnesium Sulfate/Water 2 GM/50 ML BAG IV SCH ×3 (10:39→21:33)
--- NOTE | 2021-06-02 10:53 | PN ---
DATE OF SERVICE: 06/02/2021 SUBJECTIVE: Shavon is postop day 1 following a total thyroidectomy. Her voice is a little bit hoarse. She is having no difficulty swallowing. REVIEW OF SYSTEMS: Remainder of review of systems negative for any pertinent positives and negatives. OBJECTIVE: GENERAL: Shavon Mendiola is a pleasant 71-year-old female. She is alert and oriented. VITAL SIGNS: TPR 97, 77, 16, blood pressure 111/56. HEENT: Negative. NECK: Supple. Neck dressing was removed, and incision is glued, looks good. There is no hematoma or seroma noted. HEART: Regular rate and rhythm. LUNGS: Clear. ABDOMEN: Negative. EXTREMITIES: Without peripheral edema. ASSESSMENT: 1. Total thyroidectomy including excision of substernal thyroid for enlarging thyroid nodule with increased micronodules, left thyroid, with substernal extension. 2. Right thyroid nodules with increased inflammation. Date of procedure 06/01/2021. Surgeon: Edwin Tolbert MD. PLAN: 1. Surgical dressing removed. 2. Continue home Coumadin dose per her routine that she takes at home. 3. Regular diet. 4. Discontinue [place]. 5. Magnesium 2 g IV q.6 hours x72 hours. 6. 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 7. Dilaudid 2 to 4 mg every 4 hours p.r.n. pain. 8. We will evaluate p.r.n. or in a.m. Obdulia Armendariz PA-C /[id number]
[2021-06-02] MEDS ORDERED: Warfarin 5 MG Tab PO SCH (13:00)
[2021-06-02] MEDS ORDERED: Polyethylene Glycol 3350 Powder 17 GM Packet PO ONE (17:49)
[2021-06-02] MEDS: Dextrose 5%-Lactated Ringers 1,000 ML IV SCH (18:48)
[2021-06-02] MEDS: Citalopram 20 MG Tab PO SCH (21:32)
[2021-06-02] MEDS: Melatonin 3 MG Tab PO PRN (23:28)
[2021-06-03] MEDS: Magnesium Sulfate/Water 2 GM/50 ML BAG IV SCH ×4 (03:30→21:20)
[2021-06-03] MEDS: Acetaminophen 325 MG Tab PO SCH ×4 (05:42→23:25)
[2021-06-03] MEDS: Albuterol/Ipratropium 3.0-0.5 MG/3 ML Neb Soln INH SCH ×4 (07:11→21:23)
[2021-06-03] MEDS ORDERED: Levothyroxine 112 MCG Tab PO ONE (07:45)
[2021-06-03] MEDS ORDERED: Torsemide 20 MG Tab PO SCH (09:00)
[2021-06-03] MEDS: Diltiazem 120 MG Cap.CD PO SCH (09:06)
[2021-06-03] MEDS: Bisacodyl 5 MG Tab PO SCH ×2 (09:09→21:19)
[2021-06-03] MEDS: Docusate Sodium 100 MG Cap PO SCH ×2 (09:09→21:19)
--- NOTE | 2021-06-03 09:25 | PN ---
DATE OF SERVICE: 06/03/2021 SUBJECTIVE: Shavon reports her pain is controlled. She has been up, ambulating. Vital signs have been stable. Oral intake 1400. Urine output 2049. LABORATORY DATA: Today, calcium dropped just a tiny bit from 8.6 to 8.4. PT is 39.8, INR is 3.75. REVIEW OF SYSTEMS: Remainder of review of systems negative for any pertinent positives and negatives. OBJECTIVE: GENERAL: Shavon Mendiola is a pleasant 71-year-old female. Her voice is less hoarse than it was yesterday. VITAL SIGNS: TPR is 95.4, 82, 16, blood pressure 104/55. HEENT: Negative. NECK: Supple. Incision looks good. HEART: Regular rate and rhythm. LUNGS: Clear. ABDOMEN: Negative. EXTREMITIES: Without peripheral edema. ASSESSMENT: 1. Total thyroidectomy including excision of substernal thyroid for enlarging thyroid nodule and increased micro nodules, left thyroid and substernal extension. 2. Right thyroid nodules with increased inflammation. 3. Date of procedure: 06/01/2021. Surgeon: Edwin Tolbert MD. PLAN: 1. To watch calcium levels. Labs are already ordered for the morning. 2. Check PT and INR in a.m. 3. Hold Coumadin today. 4. Dulcolax 10 mg p.o. b.i.d. 5. Colace 100 mg p.o. b.i.d. 6. Synthroid 112 mcg p.o. daily. 7. May shower. 8. We will evaluate p.r.n. or in a.m. Obdulia Armendariz PA-C /[id number]
[2021-06-03] MEDS: Melatonin 3 MG Tab PO PRN (19:47)
[2021-06-03] MEDS: ALPRAZolam 0.5 MG Tab PO PRN (19:47)
[2021-06-03] MEDS: Citalopram 20 MG Tab PO SCH (21:19)
[2021-06-04] MEDS: Magnesium Sulfate/Water 2 GM/50 ML BAG IV SCH ×2 (04:37→09:28)
[2021-06-04] MEDS: Acetaminophen 325 MG Tab PO SCH (05:17)
[2021-06-04] MEDS: Albuterol/Ipratropium 3.0-0.5 MG/3 ML Neb Soln INH SCH (07:11)
[2021-06-04] MEDS ORDERED: Levothyroxine 112 MCG Tab PO SCH (07:30)
[2021-06-04 07:40] VITALS: BP 112/65; PULSE 85
[2021-06-04] MEDS: Bisacodyl 5 MG Tab PO SCH (08:00)
[2021-06-04] MEDS: Diltiazem 120 MG Cap.CD PO SCH (08:00)
[2021-06-04] MEDS: Docusate Sodium 100 MG Cap PO SCH (08:00)
--- NOTE | 2021-06-04 13:17 | DISCH ---
FINAL DIAGNOSES: Enlarging left thyroid nodule with coexisting right thyroid nodule. SECONDARY DIAGNOSES: 1. Chronic atrial fibrillation, on Coumadin anticoagulation. 2. History of multiple fractures and arthroplasties. 3. History of anxiety and depression. 4. History of asthma. 5. History of obstructive sleep apnea, on CPAP. 6. History of hyperlipidemia. OPERATIVE PROCEDURES: Done on the date of admission that would be on 06/01, total thyroidectomy including excision of substernal thyroid on left thyroid lobe. SUMMARY: This is a 71-year-old female, presenting with an enlarging thyroid nodule on the left side. This originally had been biopsied and was felt to be a follicular lesion and now with enlargement and increasing calcification, decision was made to proceed with excision of this. We intended also to remove the nodule on the right side. This was fairly posteriorly located. At the time of surgical exploration, a subtotal thyroidectomy was undertaken. Postoperatively, the patient has had no major problems and currently calcium has stabilized in the low 8s, and she has not had any symptoms of hypocalcemia. Her ProTime has been elevated and the plan will be to discharge the patient home on Synthroid 112 mcg a day. We will check a TSH in 2 to 3 months. We will hold her Coumadin today and tomorrow and then restart her usual regimen on Monday with ProTime to be checked along with BMP, mag, and phos at the time of followup appointment, which will be on 06/09/2021. She has been requiring Tylenol for pain and she is instructed to take Tums on a p.r.n. basis should she develop any signs of hypocalcemia such as perioral paresthesias. /[id number]
--- NOTE | 2021-06-07 15:11 | OR ---
DATE OF PROCEDURE: 06/01/2021 SURGEON: Edwin Tolbert MD PREOPERATIVE DIAGNOSES: 1. Enlarging left thyroid nodule with increasing microcalcifications. 2. Coexisting right thyroid nodule. POSTOPERATIVE DIAGNOSES: 1. Enlarging thyroid nodule with increasing microcalfications of the left thyroid lobe with substernal extension. 2. Coexisting right thyroid nodule associated with significant regional inflammation. PROCEDURES PERFORMED: Total thyroidectomy including excision of left substernal thyroid ([id number]). ANESTHESIA: General. BAGGAGE AND MAIL AGENT: Obdulia Armendariz PA-C INDICATIONS FOR PROCEDURE: This is a 71-year-old presenting for followup of her thyroid nodules. She appears to have undergo fine-needle aspiration of 2 thyroid nodules, one on the right, and one on the left, both showing follicular disease. Followup ultrasound done last week, however, showed the left thyroid nodule to be significantly enlarging and associated with new microcalcifications. Given this, the plan is to proceed with a left thyroid lobectomy and probable right thyroid partial lobectomy or total lobectomy depending on intraoperative findings and location of the right-sided thyroid nodule. Potential risks including bleeding, infection, injury to the recurrent laryngeal nerves, problems with postoperative hypoparathyroidism were reviewed, and the patient wishes to proceed. DETAILS OF PROCEDURE: The patient was taken to the operating room and placed in a supine position. After general endotracheal anesthesia was induced, a roll was placed underneath the shoulders and the upper chest and neck areas were prepped and draped. A standard collar incision was then made and carried down through the skin, subcutaneous tissue, and platysmal layers. Subplatysmal flaps were then raised superiorly and inferiorly, and the midline fascia was then divided. The strap muscles were then reflected off the left thyroid lobe. This was noted to be quite enlarged and associated with a roughly 2 fingerbreadths substernal extension. The latter was mobilized upward, and sequentially, the inferior thyroid vein and middle thyroid veins were divided with Harmonic scalpel. The upper pole vessels were then similarly taken with Harmonic scalpel as well. This allowed medial mobilization of the left thyroid lobe, and the branches of the inferior thyroid artery were divided flush with the thyroid capsule, reflecting the parathyroid glands away from the capsule during the course of that dissection. The isthmus was then divided more or less to the right of the midline and the remaining attachments of the left thyroid lobe were then divided with a Harmonic scalpel, and that specimen was delivered from the field. Attention was then taken to the right thyroid lobe. The nodule that was being followed was associated with quite a bit in the way of inflammation in terms of edema in the region. It was quite far posterior. Given this, the decision was made to proceed with a total lobectomy on the right side as well. A similar resection as described above was then undertaken and the specimen delivered from the field. The areas of dissection were inspected. No bleeding or other problems were noted. At this point, a drain was felt not to be necessary. Both recurrent laryngeal nerves were traced out and found to be intact. The strap muscles were then approximated with 3-0 Vicryl stitch, the platysmal layer with 4-0 Vicryl stitch, the skin with 4-0 Vicryl subcuticular stitch, and surgical glue applied. The patient was taken to the recovery room in satisfactory condition. Physician medical technician assistant, Obdulia Armendariz, played an essential role in assisting in this case, helping to position the patient, retract structures as needed, as well as suturing and cutting sutures when indicated. Her presence improved the patient's safety and decreased the operative time. Edwin Tolbert MD /[id number]
== END 2021-06-04 10:01 | disposition home or self-care (01) | DRG 626 ==
LOC: JP.MS 05:51 → JP.SDS 05:51 → EDSTATUS 08:45 → JP.MS 10:20
PROVIDERS: ADMIT Surgery; ATTEND Surgery
PROC: 0GTG0ZZ Resection of Left Thyroid Gland Lobe, Open Approach (ICD-10-PCS; principal; 2021-06-01)
PROC: 0GTH0ZZ Resection of Right Thyroid Gland Lobe, Open Approach (ICD-10-PCS; 2021-06-01)
DX: E04.1 Nontoxic single thyroid nodule (principal); I48.20 Chronic atrial fibrillation, unspecified; F41.9 Anxiety disorder, unspecified; F32.9 Major depressive disorder, single episode, unspecified; J45.909 Unspecified asthma, uncomplicated; G47.33 Obstructive sleep apnea (adult) (pediatric); E78.5 Hyperlipidemia, unspecified; Z96.653 Presence of artificial knee joint, bilateral; Z90.89 Acquired absence of other organs; Z98.890 Other specified postprocedural states; Z79.899 Other long term (current) drug therapy; Z99.81 Dependence on supplemental oxygen; Z88.1 Allergy status to other antibiotic agents; Z79.01 Long term (current) use of anticoagulants; Z91.048 Other nonmedicinal substance allergy status; Z91.012 Allergy to eggs
CPT/HCPCS: 36415; 80048; 83735; 83880; 84100; 85610; 88307; 94640; 94762; A9270-GY; J0330; J0690; J1100; J1170; J2020; J2405; J2704; J2710; J3010; J3475; J3490; J7121; J7620-GY

== ENCOUNTER 2021-12-13 08:20 | Day surgery (SDC) | payer MEDICARE, OTHER ==
[2021-12-13] MEDS ORDERED: fentaNYL 100 MCG/2 ML SDV ONE (08:38)
[2021-12-13] MEDS ORDERED: Midazolam 1 MG/ML 2 ML SDV ONE (08:38)
[2021-12-13] MEDS ORDERED: Dexamethasone 4 MG/ML SDV ONE (08:39)
[2021-12-13] MEDS ORDERED: Neostigmine Methylsulfate 1 MG/ML 5 ML Syringe ONE (08:39)
[2021-12-13] MEDS ORDERED: Propofol 200 MG/20 ML SDV ONE (08:39)
[2021-12-13] MEDS ORDERED: Glycopyrrolate 0.2 MG/ML 5 ML MDV ONE (08:39)
[2021-12-13] MEDS ORDERED: Rocuronium 50 MG/5 ML Vial ONE ×2 (08:39→12:16)
[2021-12-13] MEDS ORDERED: Ondansetron 4 MG/2 ML SDV ONE (08:39)
[2021-12-13] MEDS ORDERED: Succinylcholine 200 MG/10 ML MDV ONE (08:42)
[2021-12-13] MEDS ORDERED: Lactated Ringers 1,000 ML IV SCH (09:00)
[2021-12-13] MEDS: Nozin Nasal Sanitizer NASBOTH SCH ×2 (09:34→20:26)
[2021-12-13] MEDS ORDERED: ceFAZolin 2 GM in Premix Bag 1 BAG IV ONE (10:00)
[2021-12-13] MEDS ORDERED: ePHEDrine 50 MG/ML SDV ONE (12:16)
[2021-12-13] MEDS ORDERED: Lactated Ringers 1,000 ML ONE (13:09)
[2021-12-13] MEDS ORDERED: Sodium Chloride 0.9% 1,000 ML IV SCH (13:45)
[2021-12-13] MEDS ORDERED: Acetaminophen 500 MG Tab PO PRN ×2 (13:45→13:59)
[2021-12-13] MEDS ORDERED: HYDROmorphone 0.5 MG/0.5 ML Syringe IVPUSH PRN (13:45)
[2021-12-13] MEDS ORDERED: oxyCODONE 5 MG Tab PO PRN (13:45)
[2021-12-13] MEDS ORDERED: Ondansetron 4 MG/2 ML SDV IVPUSH PRN (13:45)
[2021-12-13] MEDS ORDERED: Albuterol 8 GM Inhaler INH PRN (13:51)
[2021-12-13] MEDS ORDERED: MINERAL OIL VAG PRN (13:51)
[2021-12-13] MEDS ORDERED: POLYCARBOPHIL VAG PRN (13:51)
[2021-12-13] MEDS ORDERED: GLYCERIN VAG PRN (13:51)
[2021-12-13] MEDS ORDERED: [UNRECOGNIZED DRUG - OTHER] VAG PRN (13:51)
[2021-12-13] MEDS ORDERED: Metoclopramide 10 MG/2 ML SDV IV PRN (13:56)
[2021-12-13] MEDS ORDERED: Acetaminophen/HYDROcodone 325-10 MG Tab PO PRN (13:58)
[2021-12-13] MEDS ORDERED: Acetaminophen/HYDROcodone 325-5 MG Tab PO PRN (13:58)
[2021-12-13] MEDS: Ketorolac 30 MG/ML SDV IVPUSH SCH ×2 (15:05→22:51)
[2021-12-13] MEDS: ALPRAZolam 0.5 MG Tab PO SCH ×2 (15:05→20:40)
[2021-12-13] MEDS: Potassium Chloride 20 MEQ Tab.ER PO SCH (17:15)
[2021-12-13] MEDS: ceFAZolin 1 GM in Premix Bag 1 BAG IV SCH (17:15)
[2021-12-13] MEDS: Docusate Sodium 100 MG Cap PO SCH (20:27)
[2021-12-13] MEDS ORDERED: Melatonin 3 MG Tab PO SCH (21:00)
[2021-12-13] MEDS ORDERED: Nozin Nasal Sanitizer NASBOTH SCH (21:00)
[2021-12-13] MEDS ORDERED: Pravastatin 20 MG Tab PO SCH (21:00)
[2021-12-13] MEDS ORDERED: Hydrocortisone 2.5% Crm 30 GM Tube TOP SCH (21:00)
[2021-12-13] MEDS ORDERED: Non-Formulary Medication 1 Each (Citalopram Hydrobromide [Celexa] 40 MG Tablet) PO SCH (21:00)
[2021-12-13] MEDS ORDERED: Non-Formulary Medication 1 Each (Melatonin [Melatonin] 10 MG Tablet) PO SCH (21:00)
[2021-12-13] MEDS ORDERED: Citalopram 20 MG Tab PO SCH (21:00)
[2021-12-13] MEDS ORDERED: TRIAMCINOLONE ACETONIDE TOP SCH (21:00)
[2021-12-14] MEDS: traMADol 50 MG Tab PO PRN ×3 (00:59→14:08)
[2021-12-14] MEDS: ceFAZolin 1 GM in Premix Bag 1 BAG IV SCH ×2 (01:57→10:00)
[2021-12-14] MEDS ORDERED: Levothyroxine 112 MCG Tab PO SCH (07:30)
[2021-12-14] MEDS: Diltiazem 120 MG Cap.CD PO SCH ×2 (08:04→08:29)
[2021-12-14] MEDS: Nozin Nasal Sanitizer NASBOTH SCH (08:04)
[2021-12-14] MEDS: Potassium Chloride 20 MEQ Tab.ER PO SCH (08:04)
[2021-12-14] MEDS: Docusate Sodium 100 MG Cap PO SCH (08:05)
[2021-12-14] MEDS: ALPRAZolam 0.5 MG Tab PO SCH ×2 (08:08→14:08)
[2021-12-14] MEDS ORDERED: Polyethylene Glycol 3350 Powder 17 GM Packet PO SCH (09:00)
[2021-12-14] MEDS ORDERED: DILTIAZEM HCL 240 MG PO SCH (09:00)
[2021-12-14] MEDS ORDERED: Torsemide 20 MG Tab PO SCH (09:00)
[2021-12-14 14:03] VITALS: BP 87/39; PULSE 80
== END 2021-12-14 17:00 | disposition home or self-care (01) ==
LOC: JP.SDS 08:20 → JP.MS 13:45 → JP.SDS 12-14 17:00
PROVIDERS: ATTEND Specialist
DX: T84.038A Mechanical loosening of other internal prosthetic joint, initial encounter (principal); G47.33 Obstructive sleep apnea (adult) (pediatric); J45.909 Unspecified asthma, uncomplicated; I48.91 Unspecified atrial fibrillation; E66.01 Morbid (severe) obesity due to excess calories; Z68.42 Body mass index [BMI] 45.0-49.9, adult
CPT/HCPCS: 36415; 51702; 73020-26-LT; 73020-LT; 85027; 97110-GP; 97116-GP; 97162-GP; 97165-GO; 97530-GP; 97535-GP; A9270-GY; C1713; C1776; J0330; J0690; J1100; J1885; J2250; J2405; J2704; J2710; J3010; J3490; J7030; J7120

== ENCOUNTER 2022-06-09 08:53 | Day surgery (SDC) | payer MEDICARE, OTHER ==
[2022-06-09 09:27] VITALS: PULSE 80
[2022-06-09] MEDS ORDERED: Sodium Chloride 0.9% 10 ML Syringe FLUSH ONE (09:30)
[2022-06-09 09:57] VITALS: BP 107/53
== END 2022-06-09 10:10 | disposition home or self-care (01) ==
LOC: JP.SDS 08:53
PROVIDERS: ATTEND Ophthalmology
DX: H25.11 Age-related nuclear cataract, right eye (principal); J45.909 Unspecified asthma, uncomplicated; E78.5 Hyperlipidemia, unspecified; E66.9 Obesity, unspecified
CPT/HCPCS: 66984; J3490

== ENCOUNTER 2022-06-23 07:28 | Day surgery (SDC) | payer MEDICARE, OTHER ==
[2022-06-23] MEDS ORDERED: Sodium Chloride 0.9% 10 ML Syringe FLUSH PRN (07:45)
[2022-06-23 09:07] VITALS: BP 126/69; PULSE 90
== END 2022-06-23 09:15 | disposition home or self-care (01) ==
LOC: JP.SDS 07:28
PROVIDERS: ATTEND Ophthalmology
DX: H25.12 Age-related nuclear cataract, left eye (principal); J45.909 Unspecified asthma, uncomplicated; G47.33 Obstructive sleep apnea (adult) (pediatric); I48.91 Unspecified atrial fibrillation; E66.9 Obesity, unspecified; F32.A Depression, unspecified; Z91.040 Latex allergy status; Z68.42 Body mass index [BMI] 45.0-49.9, adult

== ENCOUNTER 2023-01-19 10:17 | Emergency (ER) | payer MEDICARE ==
[2023-01-19 10:37] VITALS: BP 110/51; PULSE 58
[2023-01-19] MEDS: Sodium Chloride 0.9% 10 ML Syringe FLUSH PRN (11:08)
[2023-01-19 11:16] LABS: ESTIMATED GFR 67 mL/min (>60)
[2023-01-19] MEDS: Sodium Chloride 0.9% 500 ML IV ONE (11:50)
[2023-01-19] MEDS: Bacitracin Oint 1 GM U/D Packet TOP ONE (11:52)
== END 2023-01-19 13:43 | disposition home or self-care (01) ==
LOC: JP.ED 10:17
DX: S16.1XXA Strain of muscle, fascia and tendon at neck level, initial encounter (principal); S00.01XA Abrasion of scalp, initial encounter; I48.11 Longstanding persistent atrial fibrillation; R55 Syncope and collapse; E78.00 Pure hypercholesterolemia, unspecified; J45.909 Unspecified asthma, uncomplicated; E03.9 Hypothyroidism, unspecified; E66.9 Obesity, unspecified; Z68.30 Body mass index [BMI] 30.0-30.9, adult; Z88.5 Allergy status to narcotic agent; Z91.048 Other nonmedicinal substance allergy status; Z91.012 Allergy to eggs; Z88.1 Allergy status to other antibiotic agents; Z79.899 Other long term (current) drug therapy; Z86.16 Personal history of COVID-19; Z79.01 Long term (current) use of anticoagulants; W18.09XA Striking against other object with subsequent fall, initial encounter
CPT/HCPCS: 36415; 70450; 72125; 76377; 80053; 85025; 85610; 85730; 99284; J3490; J7040; 99283

== ENCOUNTER 2023-05-24 08:04 | Emergency (ER) | payer MEDICARE ==
[2023-05-24 08:43] VITALS: BP 119/59; PULSE 108
[2023-05-24 10:16] LABS: LYME AB IgG Negative (Negative); LYME AB IgM Negative (Negative)
[2023-06-01 17:12] LABS: BABESIA MICROTI IGG <1:10 (Neg:<1:10); BABESIA MICROTI IGM <1:10 (Neg:<1:10)
[2023-06-02 14:09] LABS: A. PHAGOCYTOPHILUM IGG Negative (Neg:<1:64); A. PHAGOCYTOPHILUM IGM Negative (Neg:<1:20)
== END 2023-05-24 09:21 | disposition home or self-care (01) ==
LOC: JP.ED 08:04
DX: S70.362A Insect bite (nonvenomous), left thigh, initial encounter (principal); S70.361A Insect bite (nonvenomous), right thigh, initial encounter; R20.2 Paresthesia of skin; I48.91 Unspecified atrial fibrillation; E78.00 Pure hypercholesterolemia, unspecified; J45.909 Unspecified asthma, uncomplicated; E03.9 Hypothyroidism, unspecified; E66.9 Obesity, unspecified; Z88.5 Allergy status to narcotic agent; Z88.1 Allergy status to other antibiotic agents; Z68.43 Body mass index [BMI] 50.0-59.9, adult; Z91.012 Allergy to eggs; Z91.048 Other nonmedicinal substance allergy status; Z79.899 Other long term (current) drug therapy; Z79.01 Long term (current) use of anticoagulants; Z86.16 Personal history of COVID-19; W57.XXXA Bitten or stung by nonvenomous insect and other nonvenomous arthropods, initial encounter
CPT/HCPCS: 36415; 86618; 86666; 86753; 99282; 99283